=== PATIENT | female | born 1935 | race Caucasian/White ===

== ENCOUNTER → 2016-05-01 | Outpatient (CLI) | payer MEDICARE, OTHER ==
--- NOTE | 2016-05-01 16:05 | US ---
EXAMINATION TYPE: US thyroid st tissue head/neck DATE OF EXAM: 05/01/2016 3:12 PM COMPARISON: 03/2015 CLINICAL HISTORY: 80-year-old female E04.1 Nodule. Follow up TECHNIQUE: Multiple sonographic images of the thyroid gland are obtained. FINDINGS: GLAND SIZE: Right Lobe: 4.9 x 2.8 x 3.5 cm Overall Parenchyma: heterogenous Left Lobe: 3.2 x 1.1 x 1.9 cm Overall Parenchyma: heterogeneous Isthmus Thickness: 0.3 cm NODULES RIGHT: # of nodules measured on right: 1 1. 3.3 X 2.3 x 2.6 cm primarily cystic nodule with some thickened septations and mural based nodula rity at the mid pole with well-defined margins; . This nodule is wider than tall and shows no intran odular vascularity. Prior size: 3.6 x 2.6 x 2.9 cm LEFT: # of nodules measured on left: 2 1. 0.5 X 0.4 x 0.3 cm cystic nodule at the upper pole with well-defined margins; . This nodule is wider than tall and shows no intranodular vascularity. Prior size: 0.6 x 0.3 x 0.6 cm 2. 0.5 X 0.3 x 0.7 cm mixed nodule at the posterior mid pole with well-defined margins; . This nodu le is wider than tall and shows no intranodular vascularity. Prior size: 0.4 x 0.2 x 0.4 cm ISTHMUS: # of nodules measured in the isthmus: 1 1. 0.9 X 1.0 x 0.6 cm isoechoic solid nodule at the mid pole with well-defined margins; . This nodu le is wider than tall and shows no intranodular vascularity. Prior size: 1.1 x 1.1 x 0.6 cm Bilateral neck scanned, no abnormal lymphadenopathy noted. IMPRESSION: 1. Multinodular thyroid gland, largest nodule is in the right lobe and is a complex cystic nodule tahir suring 3.3 cm versus 3.6 cm, previously. 2. The other dominant nodule measures 1 cm and is solid within the thyroid isthmus, also stable to mi nimally smaller. 3. Continued follow-up as indicated.
== END | disposition home or self-care (01) ==
LOC: RADUSWWP 14:39
PROVIDERS: ATTEND Otolaryngology
DX: E04.1 Nontoxic single thyroid nodule (principal)
CPT/HCPCS: 76536

== ENCOUNTER → 2016-07-09 | Outpatient (CLI) | payer MEDICARE, OTHER ==
[2016-07-09 15:26] LABS: Blood Urea Nitrogen 27 mg/dL (7-17); Non-African American GFR(MDRD) >60 (>60 ml/min/1.73 sqM)
== END | disposition home or self-care (01) ==
LOC: LABWHC1 14:53
PROVIDERS: ATTEND Physical Medicine & Rehabilitation
DX: M48.06 Spinal stenosis, lumbar region (principal); M41.26 Other idiopathic scoliosis, lumbar region; M51.17 Intervertebral disc disorders with radiculopathy, lumbosacral region; M47.817 Spondylosis without myelopathy or radiculopathy, lumbosacral region; M54.5 Low back pain
CPT/HCPCS: 36415; 82565; 84520

== ENCOUNTER → 2016-08-04 | Outpatient (CLI) | payer MEDICARE, OTHER ==
--- NOTE | 2016-08-05 10:20 | ECHOF ---
Referral Reason:R60.9 Edema MEASUREMENTS -------- HEIGHT: 157.5 cm WEIGHT: 103.4 kg BP: IVSd: 1.3 cm (0.6 - 1.1) LVIDd: 3.7 cm (3.9 - 5.3) LVPWd: 1.4 cm (0.6 - 1.1) IVSs: 1.5 cm LVIDs: 2.2 cm LVPWs: 1.9 cm Ao Diam: 2.7 cm (2.0 - 3.7) AV Cusp: 1.6 cm (1.5 - 2.6) LA Diam: 3.4 cm (2.7 - 3.8) MV EXCURSION: 15.618 mm (> 18.000) MV EF SLOPE: 100 mm/s (70 - 150) EPSS: 0.4 cm MV E Christiano: 0.70 m/s MV DecT: 261 ms MV A Christiano: 0.95 m/s MV E/A Ratio: 0.74 AR PHT: 820 ms RAP: 5.00 mmHg RVSP: 12.37 mmHg FINDINGS -------- Sinus rhythm. This was a technically good study. There is mild concentric left ventricular hypertrophy. Overall left ventricular systolic function is normal with, an EF between 55 - 60 %. The right ventricle is normal in size and function. The left atrium is normal in size. The right atrium is normal in size. Aortic valve is trileaflet and is mildly thickened. Trace amount of aortic regurgitation. The mitral valve leaflets are mildly thickened. Mild mitral annular calcification present. There is trace mitral regurgitation. Trace tricuspid regurgitation present. The right ventricular systolic pressure, as measured by Doppler, is 12.37mmHg. Pulmonic valve appears structurally normal. The aortic root size is normal. The pericardium is normal. CONCLUSIONS -------- 1. Sinus rhythm. 2. The mitral valve leaflets are mildly thickened. 3. Mild mitral annular calcification present. 4. There is trace mitral regurgitation. 5. Trace tricuspid regurgitation present. 6. The right ventricular systolic pressure, as measured by Doppler, is 12.37mmHg. 7. Pulmonic valve appears structurally normal. 8. The aortic root size is normal. 9. The pericardium is normal. 10. This was a technically good study. 11. There is mild concentric left ventricular hypertrophy. 12. Overall left ventricular systolic function is normal with, an EF between 55 - 60 %. 13. The right ventricle is normal in size and function. 14. The left atrium is normal in size. 15. The right atrium is normal in size. 16. Aortic valve is trileaflet and is mildly thickened. 17. Trace amount of aortic regurgitation. CLASSIFIER TENDER: Elida Jack RDCS
== END | disposition home or self-care (01) ==
LOC: RADECHMAIN 12:46
PROVIDERS: ATTEND Internal Medicine
DX: I08.3 Combined rheumatic disorders of mitral, aortic and tricuspid valves (principal)
CPT/HCPCS: 93306

== ENCOUNTER 2016-12-25 09:00 | Emergency (ER) | payer MEDICARE, OTHER ==
[2016-12-25 09:11] VITALS: RESP 18
--- NOTE | 2016-12-25 09:24 | ED ---
General Adult HPI - General Chief complaint: Arrhythmia/Palpitations Stated complaint: Tachycardia Time Seen by Provider: 12/25/16 09:07 Source: patient, family, RN notes reviewed Mode of arrival: wheelchair Limitations: no limitations - History of Present Illness Initial comments: Patient is a pleasant 81-year-old female presenting to the emergency department with concerns for tachycardia. Patient was presenting to have spinal steroid injection at a local clinic. Patient had heart rate at 120 prior to procedure. Upon presentation patient had a heart rate of 80. Patient denies any palpitations. Patient denies any chest discomfort. Patient denies dyspnea. Patient does admit to having a mild cough for a week or so with some mild chest congestion. Patient also states there has been some mild discomfort of her right inner thigh that extends to around the knee maybe a little bit past. No swelling. No redness. - Related Data Home Medications Medication Instructions Recorded Confirmed rOPINIRole HCL [rOPINIRole HCL] 0.5 mg PO TID 12/25/16 12/25/16 Previous Rx's Medication Instructions Recorded amLODIPine BESYLATE [Norvasc] 5 mg PO DAILY #20 tab 06/15/14 Allergies Allergy/AdvReac Type Severity Reaction Status Date / Time No Known Allergies Allergy Verified 12/25/16 10:47 Review of Systems ROS Statement: Those systems with pertinent positive or pertinent negative responses have been documented in the HPI. ROS Other: All systems not noted in ROS Statement are negative. Constitutional: Denies: fever Eyes: Denies: eye pain ENT: Denies: ear pain Respiratory: Reports: cough. Denies: dyspnea Cardiovascular: Denies: chest pain Endocrine: Denies: fatigue Gastrointestinal: Denies: abdominal pain Genitourinary: Denies: dysuria Musculoskeletal: Denies: back pain Skin: Denies: rash Neurological: Denies: headache Past Medical History Past Medical History: Hypertension Additional Past Medical History / Comment(s): restless leg History of Any Multi-Drug Resistant Organisms: None Reported Past Surgical History: Cholecystectomy, Hernia Repair Past Anesthesia/Blood Transfusion Reactions: No Reported Reaction Past Psychological History: No Psychological Hx Reported Smoking Status: Never smoker Past Alcohol Use History: Occasional Past Drug Use History: None Reported - Past Family History Mother Family Medical History: Congestive Heart Failure (CHF), Diabetes Mellitus, Hypertension Father Family Medical History: Congestive Heart Failure (CHF) General Exam Limitations: no limitations General appearance: alert, in no apparent distress Head exam: Present: atraumatic Eye exam: Present: normal appearance, PERRL ENT exam: Present: normal oropharynx Neck exam: Present: normal inspection Respiratory exam: Present: normal lung sounds bilaterally. Absent: chest wall tenderness Cardiovascular Exam: Present: regular rate, normal rhythm, normal heart sounds Expanded Peripheral pulses: 2+: Dorsalis Pedis (R), Dorsalis Pedis (L) GI/Abdominal exam: Present: soft. Absent: tenderness Extremities exam: Present: other (Mild tenderness right inner thigh. No swelling. No warmth. No erythema.). Absent: pedal edema, calf tenderness Neurological exam: Present: alert Psychiatric exam: Present: normal affect, normal mood Skin exam: Present: normal color Course Vital Signs 12/25/16 09:07 Temperature 96.9 F L Pulse Rate 83 Respiratory 18 Rate Blood Pressure 163/78 O2 Sat by Pulse 98 Oximetry EKG Findings - EKG Comments: EKG Findings:: Sinus rhythm 85. First 3 AV block MO 224. QRS 80. QT 38. QTC 452. Normal axis. Voltage criteria for LVH. No acute ST change. Medical Decision Making - Medical Decision Making Patient examined and resting comfortably in bed. Patient running symptom-free. Heart rate 65. Patient and family were updated on results and need for follow -up. - Lab Data Result diagrams: 12/25/16 09:26 12/25/16 09:26 Lab Results 12/25/16 12/25/16 12/25/16 Range/Units 09:26 09:26 09:26 WBC 6.1 (3.8-10.6) k/uL RBC 5.31 (3.80-5.40) m/uL Hgb 15.6 (11.4-16.0) gm/dL Hct 48.3 H (34.0-46.0) % MCV 90.9 (80.0-100.0) fL MCH 29.4 (25.0-35.0) pg MCHC 32.3 (31.0-37.0) g/dL RDW 13.7 (11.5-15.5) % Plt Count 262 (150-450) k/uL Neutrophils % 51 % Lymphocytes % 32 % Monocytes % 7 % Eosinophils % 5 % Basophils % 1 % Neutrophils # 3.1 (1.3-7.7) k/uL Lymphocytes # 2.0 (1.0-4.8) k/uL Monocytes # 0.4 (0-1.0) k/uL Eosinophils # 0.3 (0-0.7) k/uL Basophils # 0.1 (0-0.2) k/uL PT (9.0-12.0) sec INR (<1.2) APTT (22.0-30.0) sec D-Dimer (<0.60) mg/L FEU Sodium 141 (137-145) mmol/L Potassium 4.0 (3.5-5.1) mmol/L Chloride 108 H (98-107) mmol/L Carbon Dioxide 23 (22-30) mmol/L Anion Gap 10 mmol/L BUN 19 H (7-17) mg/dL Creatinine 0.60 (0.52-1.04) mg/dL Est GFR (MDRD) Af Amer >60 (>60 ml/min/1.73 sqM) Est GFR (MDRD) Non-Af >60 (>60 ml/min/1.73 sqM) Glucose 98 (74-99) mg/dL Calcium 8.9 (8.4-10.2) mg/dL Magnesium 2.1 (1.6-2.3) mg/dL Total Bilirubin 0.7 (0.2-1.3) mg/dL AST 28 (14-36) U/L ALT 36 (9-52) U/L Alkaline Phosphatase 69 (38-126) U/L Total Creatine Kinase 81 (30-135) U/L CK-MB (CK-2) 1.6 (0.0-2.4) ng/mL CK-MB (CK-2) Rel Index 2.0 Troponin I <0.012 (0.000-0.034) ng/mL Total Protein 6.9 (6.3-8.2) g/dL Albumin 4.0 (3.5-5.0) g/dL TSH 4.020 (0.465-4.680) mIU/L Free T4 1.12 (0.78-2.19) ng/dL Free T3 pg/mL 3.8 (2.8-5.3) pg/ml 12/25/16 Range/Units 09:46 WBC (3.8-10.6) k/uL RBC (3.80-5.40) m/uL Hgb (11.4-16.0) gm/dL Hct (34.0-46.0) % MCV (80.0-100.0) fL MCH (25.0-35.0) pg MCHC (31.0-37.0) g/dL RDW (11.5-15.5) % Plt Count (150-450) k/uL Neutrophils % % Lymphocytes % % Monocytes % % Eosinophils % % Basophils % % Neutrophils # (1.3-7.7) k/uL Lymphocytes # (1.0-4.8) k/uL Monocytes # (0-1.0) k/uL Eosinophils # (0-0.7) k/uL Basophils # (0-0.2) k/uL PT 10.5 (9.0-12.0) sec INR 1.0 (<1.2) APTT 23.8 (22.0-30.0) sec D-Dimer 0.57 (<0.60) mg/L FEU Sodium (137-145) mmol/L Potassium (3.5-5.1) mmol/L Chloride (98-107) mmol/L Carbon Dioxide (22-30) mmol/L Anion Gap mmol/L BUN (7-17) mg/dL Creatinine (0.52-1.04) mg/dL Est GFR (MDRD) Af Amer (>60 ml/min/1.73 sqM) Est GFR (MDRD) Non-Af (>60 ml/min/1.73 sqM) Glucose (74-99) mg/dL Calcium (8.4-10.2) mg/dL Magnesium (1.6-2.3) mg/dL Total Bilirubin (0.2-1.3) mg/dL AST (14-36) U/L ALT (9-52) U/L Alkaline Phosphatase (38-126) U/L Total Creatine Kinase (30-135) U/L CK-MB (CK-2) (0.0-2.4) ng/mL CK-MB (CK-2) Rel Index Troponin I (0.000-0.034) ng/mL Total Protein (6.3-8.2) g/dL Albumin (3.5-5.0) g/dL TSH (0.465-4.680) mIU/L Free T4 (0.78-2.19) ng/dL Free T3 pg/mL (2.8-5.3) pg/ml - Radiology Data Radiology results: report reviewed (Ultrasound right leg shows no evidence of DVT. There is slight limitation.), image reviewed (Chest x-ray shows no acute process) Disposition Clinical Impression: Tachycardia Disposition: HOME SELF-CARE Condition: Stable Instructions: Tachycardia (ED) Additional Instructions: Please follow-up with your primary care physician in the next day or 2 for recheck. Return for increased heart rate, chest pain, difficulty breathing, worsening or changing symptoms or other concerns. Please do check her heart rate several times daily and provided list for follow-up with your regular doctor. Referrals: Kun Alfred MD [Primary Care Provider] - 1-2 days Time of Disposition: 11:37
[2016-12-25 09:41] LABS: Basophils # (A) 0.1 k/uL (0-0.2); Basophils % (A) 1 %; CH 29.4; CHCM 32.5; Eosinophils # (A) 0.3 k/uL (0-0.7); Eosinophils % (A) 5 %; HCT 48.3 % (34.0-46.0); HDW 2.38; HGB 15.6 gm/dL (11.4-16.0); Luc # (Auto) 0.25; Luc % (Auto) 4; Lymphocytes % (A) 32 %; MCH 29.4 pg (25.0-35.0); MCHC 32.3 g/dL (31.0-37.0); MCV 90.9 fL (80.0-100.0); Mean Platelet Volume 7.3; Monocytes # (A) 0.4 k/uL (0-1.0); Monocytes % (A) 7 %; Neutrophils # (A) 3.1 k/uL (1.3-7.7); Neutrophils % (A) 51 %; RBC 5.31 m/uL (3.80-5.40); RDW 13.7 % (11.5-15.5); WBC 6.1 k/uL (3.8-10.6); WBC (Perox) 5.94
[2016-12-25 09:47] LABS: ALT 36 U/L (9-52); AST 28 U/L (14-36); Alkaline Phosphatase 69 U/L (38-126); Anion Gap 10 mmol/L; Blood Urea Nitrogen 19 mg/dL (7-17); Calcium 8.9 mg/dL (8.4-10.2); Carbon Dioxide 23 mmol/L (22-30); Chloride 108 mmol/L (98-107); Glucose 98 mg/dL (74-99); Magnesium 2.1 mg/dL (1.6-2.3); Non-African American GFR(MDRD) >60 (>60 ml/min/1.73 sqM); Sodium 141 mmol/L (137-145); Total Bilirubin 0.7 mg/dL (0.2-1.3); Total Protein 6.9 g/dL (6.3-8.2)
[2016-12-25 10:03] LABS: Creatine Kinase 81 U/L (30-135)
[2016-12-25 10:10] LABS: Partial Thromboplastin Time 23.8 sec (22.0-30.0); Prothrombin Time 10.5 sec (9.0-12.0)
[2016-12-25 10:15] LABS: Creatine Kinase MB 1.6 ng/mL (0.0-2.4); Troponin I <0.012 ng/mL (0.000-0.034)
--- NOTE | 2016-12-25 10:45 | US ---
EXAMINATION TYPE: US venous doppler duplex LE RT DATE OF EXAM: 12/25/2016 9:20 AM COMPARISON: US CLINICAL HISTORY: Pain. SIDE PERFORMED: TECHNIQUE: The lower extremity deep venous system is examined utilizing real time linear array sonog dre with graded compression, doppler sonography and color-flow sonography. VESSELS IMAGED: External Iliac Vein (EIV) Common Femoral Vein Deep Femoral Vein Greater Saphenous Vein * Femoral Vein, unable to perform compression mid and distal due to patient pain level Popliteal Vein Small Saphenous Vein * Proximal Calf Veins, not seen due to body habitus, (* superficial vessels) Morbidly obese patient. Right Leg: Negative for DVT IMPRESSION: 1. Limited exam demonstrates no diagnostic evidence of DVT as visualized.
--- NOTE | 2016-12-25 11:22 | XR ---
EXAMINATION TYPE: XR chest 2V DATE OF EXAM: 12/25/2016 COMPARISON: 01/31/2015 TECHNIQUE: PA and lateral views submitted. HISTORY: Dysrhythmia FINDINGS: The lungs are clear and there is no pneumothorax, pleural effusion, or focal pneumonia. Atheroscler otic change aorta. Hyperinflation suggests COPD. Arthropathy of the shoulders noted. IMPRESSION: 1. No acute process.
[2016-12-25 11:48] VITALS: BP 135/64; PULSE 65; TEMP 96.8
== END 2016-12-25 11:48 | disposition home or self-care (01) ==
LOC: EC 09:00
DX: R00.0 Tachycardia, unspecified (principal); R05 Cough; R09.89 Other specified symptoms and signs involving the circulatory and respiratory systems; G25.81 Restless legs syndrome; Z79.899 Other long term (current) drug therapy; Z82.49 Family history of ischemic heart disease and other diseases of the circulatory system; M79.651 Pain in right thigh
CPT/HCPCS: 36415; 71020; 80053; 82550; 82553; 83735; 84439; 84443; 84481; 84484; 85025; 85379; 85610; 85730; 93005; 99285

== ENCOUNTER → 2017-01-08 | Outpatient (CLI) | payer MEDICARE, OTHER ==
--- NOTE | 2017-01-08 15:06 | US ---
EXAMINATION TYPE: US thyroid st tissue head/neck DATE OF EXAM: 01/08/2017 COMPARISON: May 01, 2016 CLINICAL HISTORY: E04.9 Thyroid goiter. follow up exam GLAND SIZE: Right Lobe: 4.3 x 3.0 x 3.2 cm Overall Parenchyma: heterogenous Left Lobe: 3.3 x 1.0 x 1.6 cm Overall Parenchyma: heterogeneous Isthmus Thickness: 0.5 cm NODULES RIGHT: # of nodules measured on right: 1 1. 2.3 X 3.0 x 3.3 cm cystic nodule at the mid pole with well-defined margins. This nodule is dominique ler than wide and shows no intranodular vascularity. Prior size: 3.3 x 2.3 x 2.6 cm LEFT: # of nodules measured on left: 0 ISTHMUS: # of nodules measured in the isthmus: 0 Bilateral neck scanned, no evidence of lymphadenopathy. IMPRESSION: Stable cystic nodule right thyroid lobe.
== END | disposition home or self-care (01) ==
LOC: RADUSWWP 14:04
PROVIDERS: ATTEND Internal Medicine
DX: E04.1 Nontoxic single thyroid nodule (principal)
CPT/HCPCS: 76536

== ENCOUNTER → 2017-11-03 | Outpatient (CLI) | payer MEDICARE, OTHER ==
[~2017-11-03] MED LIST: DENOSUMAB 60 MG/ML 1 ML SYRINGE SQ ONE
[2017-11-03 14:33] VITALS: BP 143/74; PULSE 69; RESP 16; TEMP 98.6
== END | disposition home or self-care (01) ==
LOC: PROCWHC3 13:57
PROVIDERS: ATTEND Internal Medicine
DX: M81.0 Age-related osteoporosis without current pathological fracture (principal)
CPT/HCPCS: 96372; J0897

== ENCOUNTER 2017-12-10 15:08 | Inpatient (IN) | payer MEDICARE, OTHER ==
[2017-12-10] MEDS ORDERED: ALBUTEROL NEBULIZED 2.5 MG/3 ML INHALATION STA (15:35)
[2017-12-10] MEDS ORDERED: IPRATROPIUM 0.5 MG/2.5 ML NEBU INHALATION STA (15:35)
--- NOTE | 2017-12-10 15:35 | ED ---
General Adult HPI - General Chief complaint: Shortness of Breath Stated complaint: pneumonia/SOB Source: patient Mode of arrival: wheelchair Limitations: no limitations - History of Present Illness Initial comments: Dictation was produced using [employer] dictation software. please excuse any grammatical, word or spelling errors. Chief Complaint: 82-year-old female past medical history of hypertension and restless leg disease presents with shortness of breath. History of Present Illness: Patient was seen in her primary care doctor's office yesterday. X-rays was performed and patient was diagnosed with pneumonia. She was discharged with antibiotics per she is given precautions that if she has any worsening symptoms or persistent symptoms to come to the emergency department. Patient states she's been having shortness of breath especially with exertion. Patient denies any smoking history. Denies any COPD. Patient denies any chest pain. She was told that there was a pneumonia or a infiltrate in the left lower lobe. Patient's cough and however denies any constitutional symptoms. Patient denies any overt sick contacts The ROS documented in this emergency department record has been reviewed and confirmed by me. Those systems with pertinent positive or negative responses have been documented in the HPI. All other systems are other negative and/or noncontributory. - Related Data Home Medications Medication Instructions Recorded Confirmed rOPINIRole HCL 0.5 mg PO TID 12/25/16 12/10/17 Cholecalciferol [Vitamin D3] 1,000 unit PO DAILY 12/10/17 12/10/17 Multivitamins, Thera [Multivitamin 1 tab PO DAILY 12/10/17 12/10/17 (formulary)] Vitamin B Complex 1 cap PO DAILY 12/10/17 12/10/17 Previous Rx's Medication Instructions Recorded amLODIPine BESYLATE [Norvasc] 5 mg PO DAILY #20 tab 06/15/14 Allergies Allergy/AdvReac Type Severity Reaction Status Date / Time lorazepam [From Ativan] AdvReac Unknown Verified 12/10/17 16:04 Review of Systems ROS Statement: Those systems with pertinent positive or pertinent negative responses have been documented in the HPI. ROS Other: All systems not noted in ROS Statement are negative. Past Medical History Past Medical History: Hypertension Additional Past Medical History / Comment(s): restless leg History of Any Multi-Drug Resistant Organisms: None Reported Past Surgical History: Cholecystectomy, Hernia Repair Past Anesthesia/Blood Transfusion Reactions: No Reported Reaction Past Psychological History: No Psychological Hx Reported Smoking Status: Never smoker Past Alcohol Use History: None Reported Past Drug Use History: None Reported - Past Family History Mother Family Medical History: Congestive Heart Failure (CHF), Diabetes Mellitus, Hypertension Father Family Medical History: Congestive Heart Failure (CHF) General Exam - General Exam Comments Initial Comments: PHYSICAL EXAM: General Impression: Alert and oriented x3, not in acute distress HEENT: Normocephalic atraumatic, extra-ocular movements intact, pupils equal and reactive to light bilaterally, mucous membranes moist, exhibits on the posterior pharynx and tonsils Cardiovascular: Heart regular rate and rhythm, S1&S2 audible, no murmurs, rubs or gallops Chest: Lungs clear to auscultation bilaterally, no rhonchi, no wheeze, no rales Abdomen: Bowel sounds present, abdomen soft, non-tender, non-distended, no organomegaly Musculoskeletal: Pulses present and equal in all extremities, no peripheral edema Motor: Power 5/5 bilaterally, no focal deficits noted Neurological: CN II-XII grossly intact, no focal motor or sensory deficits noted Skin: Intact with no visualized rashes Psych: Normal affect and mood Limitations: no limitations Course Vital Signs 12/10/17 12/10/17 12/10/17 15:11 15:14 16:00 Temperature 98.3 F Pulse Rate 89 87 Respiratory 20 25 H 18 Rate Blood Pressure 128/77 O2 Sat by Pulse 92 L Oximetry 12/10/17 16:20 Temperature Pulse Rate 97 Respiratory 18 Rate Blood Pressure O2 Sat by Pulse 88 L Oximetry Medical Decision Making - Medical Decision Making ED course: 82 year old female presents with difficulty in breathing after being diagnosed with pneumonia yesterday. Vital signs upon arrival shows 92% on room air. Rest vital signs within normal limits. Patient is afebrile. Laboratory evaluation obtained. CBC unremarkable. Negative differential. Coag panel unremarkable. Metabolic panel is negative. Cardiac enzymes negative , abdominal labs are negative. Chest x-ray does not show any signs of pneumonia or suspicious infiltrate. Patient was given a breathing treatment. She was observed in emergency department. Patient still persistently hypoxic with the level of 88. At this point there is some suspicion that this could be early pneumonia that is not seen on x-ray. More than likely patient hypoxic from viral etiology. Patient be admitted observation for further medical monitoring. We'll continue antibiotics and give her [id number] breathing treatment. EKG Interpretation: A 12 lead EKG was obtained. It was interpreted by myself and attending physician. There is a P wave before every QRS complex. Rate is 88. Rhythm is normal sinus rhythm, NH interval 180, QRS duration 90, QTc 447. QT is not prolonged. No ST segment depression or elevation. . Overall, this EKG is unremarkable - Lab Data Result diagrams: 12/10/17 15:39 12/10/17 15:39 Lab Results 12/10/17 12/10/17 12/10/17 Range/Units 15:39 15:39 15:39 WBC 9.3 (3.8-10.6) k/uL RBC 4.99 (3.80-5.40) m/uL Hgb 14.4 (11.4-16.0) gm/dL Hct 44.4 (34.0-46.0) % MCV 88.9 (80.0-100.0) fL MCH 28.8 (25.0-35.0) pg MCHC 32.4 (31.0-37.0) g/dL RDW 13.7 (11.5-15.5) % Plt Count 259 (150-450) k/uL Neutrophils % 74 % Lymphocytes % 12 % Monocytes % 8 % Eosinophils % 4 % Basophils % 0 % Neutrophils # 6.9 (1.3-7.7) k/uL Lymphocytes # 1.1 (1.0-4.8) k/uL Monocytes # 0.8 (0-1.0) k/uL Eosinophils # 0.4 (0-0.7) k/uL Basophils # 0.0 (0-0.2) k/uL PT (9.0-12.0) sec INR (<1.2) APTT (22.0-30.0) sec Sodium 140 (137-145) mmol/L Potassium 4.3 (3.5-5.1) mmol/L Chloride 105 (98-107) mmol/L Carbon Dioxide 27 (22-30) mmol/L Anion Gap 8 mmol/L BUN 22 H (7-17) mg/dL Creatinine 0.83 (0.52-1.04) mg/dL Est GFR (CKD-EPI)AfAm 75 (>60 ml/min/1.73 sqM) Est GFR (CKD-EPI)NonAf 65 (>60 ml/min/1.73 sqM) Glucose 110 H (74-99) mg/dL Calcium 9.0 (8.4-10.2) mg/dL Total Bilirubin 0.4 (0.2-1.3) mg/dL AST 29 (14-36) U/L ALT 30 (9-52) U/L Alkaline Phosphatase 56 (38-126) U/L Total Creatine Kinase 106 (30-135) U/L CK-MB (CK-2) 1.7 (0.0-2.4) ng/mL CK-MB (CK-2) Rel Index 1.6 Troponin I <0.012 (0.000-0.034) ng/mL Total Protein 6.7 (6.3-8.2) g/dL Albumin 4.0 (3.5-5.0) g/dL 12/10/17 Range/Units 15:39 WBC (3.8-10.6) k/uL RBC (3.80-5.40) m/uL Hgb (11.4-16.0) gm/dL Hct (34.0-46.0) % MCV (80.0-100.0) fL MCH (25.0-35.0) pg MCHC (31.0-37.0) g/dL RDW (11.5-15.5) % Plt Count (150-450) k/uL Neutrophils % % Lymphocytes % % Monocytes % % Eosinophils % % Basophils % % Neutrophils # (1.3-7.7) k/uL Lymphocytes # (1.0-4.8) k/uL Monocytes # (0-1.0) k/uL Eosinophils # (0-0.7) k/uL Basophils # (0-0.2) k/uL PT 9.9 (9.0-12.0) sec INR 1.0 (<1.2) APTT 22.5 (22.0-30.0) sec Sodium (137-145) mmol/L Potassium (3.5-5.1) mmol/L Chloride (98-107) mmol/L Carbon Dioxide (22-30) mmol/L Anion Gap mmol/L BUN (7-17) mg/dL Creatinine (0.52-1.04) mg/dL Est GFR (CKD-EPI)AfAm (>60 ml/min/1.73 sqM) Est GFR (CKD-EPI)NonAf (>60 ml/min/1.73 sqM) Glucose (74-99) mg/dL Calcium (8.4-10.2) mg/dL Total Bilirubin (0.2-1.3) mg/dL AST (14-36) U/L ALT (9-52) U/L Alkaline Phosphatase (38-126) U/L Total Creatine Kinase (30-135) U/L CK-MB (CK-2) (0.0-2.4) ng/mL CK-MB (CK-2) Rel Index Troponin I (0.000-0.034) ng/mL Total Protein (6.3-8.2) g/dL Albumin (3.5-5.0) g/dL Disposition Clinical Impression: Hypoxia Disposition: ADMITTED IP TO THIS HOSP Condition: Good Referrals: Kun Alfred MD [Primary Care Provider] - 1-2 days Decision Time: 17:14
[2017-12-10 15:47] LABS: Basophils % (A) 0 %; Eosinophils # (A) 0.4 k/uL (0-0.7); Eosinophils % (A) 4 %; HCT 44.4 % (34.0-46.0); HGB 14.4 gm/dL (11.4-16.0); Lymphocytes # (A) 1.1 k/uL (1.0-4.8); Lymphocytes % (A) 12 %; MCH 28.8 pg (25.0-35.0); MCHC 32.4 g/dL (31.0-37.0); MCV 88.9 fL (80.0-100.0); Monocytes # (A) 0.8 k/uL (0-1.0); Monocytes % (A) 8 %; Neutrophils # (A) 6.9 k/uL (1.3-7.7); Neutrophils % (A) 74 %; Platelet Count 259 k/uL (150-450); RBC 4.99 m/uL (3.80-5.40); RDW 13.7 % (11.5-15.5); WBC 9.3 k/uL (3.8-10.6)
[2017-12-10 15:51] LABS: Potassium 4.3 mmol/L (3.5-5.1); Total Bilirubin 0.4 mg/dL (0.2-1.3); Total Protein 6.7 g/dL (6.3-8.2)
--- NOTE | 2017-12-10 15:53 | XR ---
EXAMINATION TYPE: XR chest 2V DATE OF EXAM: 12/10/2017 COMPARISON: 12/25/2016 HISTORY: 82-year-old female difficulty in breathing TECHNIQUE: AP and lateral views FINDINGS: Heart upper limits of normal in size. Some right paratracheal soft tissue suggestive of vascular ecta nico. Mild diffuse interstitial prominence is unchanged. Hazy densities in the peripheral left lung re lating to overlying soft tissue. Patient is obliqued. No definite consolidation or pleural effusion. IMPRESSION: Borderline cardiomegaly. There are chronic changes without definite acute process.
[2017-12-10 15:58] LABS: Partial Thromboplastin Time 22.5 sec (22.0-30.0); Prothrombin Time 9.9 sec (9.0-12.0)
[2017-12-10 16:28] LABS: Creatine Kinase MB 1.7 ng/mL (0.0-2.4); Troponin I <0.012 ng/mL (0.000-0.034)
[2017-12-10 16:52] LABS: Creatine Kinase 106 U/L (30-135)
[2017-12-10] MEDS ORDERED: DEXAMETHASONE SOD PHOSPHATE 10 MG/ML 1 ML VIAL IV STA (17:14)
[2017-12-10] MEDS ORDERED: NALOXONE 0.4 MG/ML 1 ML VIAL IV PRN (17:15)
[2017-12-10] MEDS ORDERED: IPRATROPIUM-ALBUTEROL 3 ML NEB INHALATION PRN (17:18)
[2017-12-10] MEDS: AZITHROMYCIN 500 MG TAB PO SCH (19:44)
[2017-12-10] MEDS: IPRATROPIUM-ALBUTEROL 3 ML NEB INHALATION SCH (19:58)
[2017-12-11] MEDS: IPRATROPIUM-ALBUTEROL 3 ML NEB INHALATION SCH ×3 (07:26→15:57)
[2017-12-11] MEDS: AZITHROMYCIN 500 MG TAB PO SCH (08:43)
[2017-12-11] MEDS ORDERED: predniSONE 20 MG TAB PO SCH (09:00)
[2017-12-11] MEDS ORDERED: amLODIPine 5 MG TAB PO SCH (10:00)
[2017-12-11] MEDS ORDERED: NON-FORMULARY DRUG (Vitamin B Complex [Vitamin B Complex] 1 CAP) PO SCH (10:00)
[2017-12-11] MEDS ORDERED: CHOLECALCIFEROL 1,000 UNIT TAB PO SCH (10:00)
[2017-12-11] MEDS ORDERED: MULTIVITAMINS, THERA 1 EACH TAB PO SCH (12:00)
[2017-12-11 15:02] VITALS: RESP 22
[2017-12-11 15:59] VITALS: BP 131/60; TEMP 97.6
[2017-12-11] MEDS: ENOXAPARIN 40 MG/0.4 ML SYRINGE SQ SCH ×2 (16:02→16:42)
[2017-12-11] MEDS: LORATADINE-PSEUDOEPH 5-120 MG 1 EACH TAB.ER.12H PO SCH ×2 (16:03→16:41)
[2017-12-11 16:13] VITALS: PULSE 84
--- NOTE | 2017-12-11 16:27 | HP ---
HISTORY AND PHYSICAL DATE OF ADMISSION: 12/10/17. DATE OF SERVICE: 12/11/17. PRESENTING COMPLAINT: Congested cough. HISTORY OF PRESENTING COMPLAINT: This is a very pleasant, 82-year-old patient Dr. Kun Alfred. Chronic stable medical conditions include hypertension, obesity, osteoarthritis especially of the knees and hips. The patient has been short of breath for quite a few days coming on. Two days ago she started having a cough. Had some light colored sputum. Denies any fever, chills. Appetite has been down and felt a bit weak, little bit muscle achiness and went and saw her family doctor. The patient was given antibiotics, but did not feel better and decided to come in. She is also congested in the nose with nasal congestion and feels congested in the throat area. Has got a cough. The patient normally uses a walker to get about. Denies any fever and chills. Admitted through the ER. REVIEW OF SYSTEMS: CONSTITUTIONAL: Tired. HEENT: As above. RESPIRATORY: As above. CARDIOVASCULAR: None. GASTROINTESTINAL: None. GENITOURINARY: None. MUSCULOSKELETAL: Some achiness in the muscles and knee joint pains. DERMATOLOGICAL: None. HEMATOLOGIC: None. LYMPHATICS: None. PSYCHIATRY: None. NEUROLOGICAL: None. PAST MEDICAL HISTORY: Hypertension, restless legs syndrome, osteoarthritis. PAST SURGICAL HISTORY: Cholecystectomy, hernia repair, cataract surgery, surgery on veins bilateral legs, epidural injection in the back. SOCIAL HISTORY: Lives by herself. Uses a walker, is a . No smoking. No alcohol. FAMILY HISTORY: Congestive heart failure, diabetes, hypertension. HOME MEDICATIONS: 1. Requip 0.5 mg p.o. t.i.d. 2. Norvasc 5 mg p.o. daily. 3. Vitamin B complex 1 capsule p.o. daily. 4. Multivitamin 1 tablet p.o. daily. 5. Vitamin D3 1000 units p.o. daily. ALLERGIES: To ATIVAN. PHYSICAL EXAMINATION: Vital signs on presentation: Temperature 98.3, pulse 59, respiration 20, blood pressure 120/77, pulse ox 92 percent on room air. GENERAL APPEARANCE: Well built, BMI 42.8, sitting up, awake. EYES: Pupils equal. Conjunctivae normal. HEENT: External appearance of nose and ears normal. Oral cavity normal. NECK: JVD not raised. Mass not palpable. RESPIRATORY: Effort normal. Lungs, slightly decreased breath sounds with occasional wheezing. CARDIOVASCULAR: First and second sounds normal. Minimal edema. ABDOMEN: Soft, nontender. Liver and spleen not palpable. LYMPHATIC: No lymph node palpable in neck and axillae. PSYCHIATRY: Alert and oriented x3. Mood and affect normal. NEUROLOGICAL: Pupils equal. Cranial nerves grossly intact. Power and sensation grossly intact. EXTREMITIES: Some venous prominence of lower extremities. MUSCULOSKELETAL: Evidence of osteoarthritis especially in the knees and hands. INVESTIGATIONS: White count 9.3, hemoglobin 14.4, potassium 4.3, BUN 22, creatinine 0.83. EKG sinus rhythm shows poor R-wave progression. Chest x-ray interpreted by me shows some hazy infiltrate. ASSESSMENT: 1. This is a patient who has had several days of chest congestion, nasal congestion, throat congestion. No fever. No chills. Has no white count. Sputum is very light green tinged if any. This appears to be a viral pneumonitis associated with achiness. Often times antibiotics would not really help in this and often times these can drag on for days. 2. Morbid obesity, BMI 42.8. 3. Primary osteoarthritis multiple joints bilateral. 4. Restless legs syndrome. 5. Essential hypertension. 6. Bronchospasm secondary to above. PLAN: Patient is getting breathing treatments, was started on antibiotics in the ER including Zithromax. Home medications are resumed. We will also give patient Claritin-D. Care was discussed at length with the patient. The patient is very keen to go home. I did talk with . Depending how she is doing, we could decide later that today. I did tell some of the symptoms linger for a while given that this is most likely a viral pneumonitis. MMODL / IJN: [id number] /
--- NOTE | 2017-12-13 12:02 | DS ---
DISCHARGE SUMMARY DATE OF ADMISSION: 12/10/17. DATE OF DISCHARGE: 12/11/17. FINAL DIAGNOSES: 1. Acute viral pneumonitis causing secondary bronchospasm. 2. Morbid obesity, BMI 42.8. 3. Primary osteoarthritis multiple joints bilateral. 4. Restless legs syndrome. 5. Essential hypertension. 6. Bronchospasm from viral pneumonitis. HOSPITAL COURSE: This very pleasant lady who has been going on short of breath for several days with cough, light green sputum. No fever. Had no white count. Just generally tired, was given antibiotics per PCP and did not work. Decided to come in. Again, patient is afebrile. No white count. Lungs showed minimal wheezing. The patient is also congested in the sinuses it appears. Patient got some breathing treatments with which she felt much better. The patient is awake, keen to go home and she felt she could really get better at home. She is going to look at the [place]. Would prefer to keep her longer, but she was rather keen about the same. I did speak at length with the patient about the same. EXAMINATION: Afebrile, pulse 84, respiration 20, blood pressure 130/60, pulse ox 92 percent on room air. On examination lungs are slightly decreased breath sounds. Occasional wheezing. LABS: Normal white count with no shift. DISPOSITION: Home. DISCHARGE MEDICATIONS: 1. Norvasc 5 mg p.o. daily. 2. Ropinirole 0.5 mg p.o. t.i.d. 3. Vitamin D3 2000 units p.o. daily. 4. Multivitamin 1 tablet p.o. daily. 5. Vitamin B complex 1 capsule p.o. daily. 6. Ventolin HFA 1-2 puffs q.6h p.r.n. 7. Zithromax 100 mg p.o. daily 5 tablets. 8. Claritin-D 1 tablet q.12h, 10 tablets. 9. Afrin 1 spray each nostril q.6h p.r.n. before now vapor inhalation. 10.Prednisone taper. Follow with Dr. Alfred in 3 days. Care was discussed in detail with the patient including return to the hospital if she was to get worse and did not feel better. MMODL / IJN: [id number] /
== END 2017-12-11 18:10 | disposition home or self-care (01) | DRG 194 ==
LOC: EC 15:08 → 5MS5E 17:17
PROVIDERS: ADMIT Hospitalist; ATTEND Hospitalist
DX: J12.9 Viral pneumonia, unspecified (principal); Z68.41 Body mass index [BMI] 40.0-44.9, adult; J98.01 Acute bronchospasm; E66.01 Morbid (severe) obesity due to excess calories; G25.81 Restless legs syndrome; I10 Essential (primary) hypertension; M19.91 Primary osteoarthritis, unspecified site; R09.02 Hypoxemia; Z79.899 Other long term (current) drug therapy; Z82.49 Family history of ischemic heart disease and other diseases of the circulatory system; Z83.3 Family history of diabetes mellitus; M16.0 Bilateral primary osteoarthritis of hip; M17.0 Bilateral primary osteoarthritis of knee; Z98.49 Cataract extraction status, unspecified eye
CPT/HCPCS: 36415; 71046; 80053; 82550; 82553; 84484; 85025; 85610; 85730; 93005; 94640; 94760; 96374; 99285

== ENCOUNTER → 2018-02-02 | Outpatient (CLI) | payer MEDICARE, OTHER ==
--- NOTE | 2018-02-03 11:33 | MM ---
Reason for exam: screening (asymptomatic). Last mammogram was performed 6 years and 4 months ago. History: Patient is postmenopausal. Family history of breast cancer in aunt at age 60. Took estrogen for 2 years beginning at age 53. Physical Findings: A clinical breast exam by your physician is recommended on an annual basis and results should be correlated with mammographic findings. MG 3D Screening Mammo W/Cad Bilateral CC and MLO view(s) were taken. Prior study comparison: September 22, 2011, bilateral digital screening mammo w/CAD. September 18, 2010, bilateral digital screening mammo w/CAD. There are scattered fibroglandular densities. There is no discrete abnormality. No significant changes when compared with prior studies. ASSESSMENT: Negative, BI-RAD 1 RECOMMENDATION: Routine screening mammogram of both breasts in 1 year.
== END | disposition home or self-care (01) ==
LOC: RADMAMWWP 16:23
PROVIDERS: ATTEND General Practice
DX: Z12.31 Encounter for screening mammogram for malignant neoplasm of breast (principal)
CPT/HCPCS: 77063; 77067

== ENCOUNTER 2018-04-16 13:58 | Inpatient (IN) | payer MEDICARE, OTHER ==
[2018-04-16] MEDS ORDERED: IPRATROPIUM-ALBUTEROL 3 ML NEB INHALATION STA ×2 (14:19→16:51)
--- NOTE | 2018-04-16 14:20 | ED ---
SOB HPI - General Chief Complaint: Shortness of Breath Stated Complaint: MARY ANNE, wheezing Time Seen by Provider: 04/16/18 14:19 Source: patient, RN notes reviewed, old records reviewed Mode of arrival: wheelchair Limitations: no limitations - History of Present Illness Initial Comments: This is a 82-year-old female the ER for evasive shortness of breath. Patient does have mild known history of COPD and wheezing. Patient was seen by her primary care and recently sent evaluation regarding her heart, echo and then was sent to see hydrometeorologist this afternoon. Patient states he does get persistent shortness of breath. Bilateral lower extremity edema. She has a chest pain recent travel history no sick contacts no significant medication changes is recent. No fevers occasional increased cough and congestion with no real exertional or exercise capability. MD Complaint: shortness of breath, cough -: days(s), unknown Radiation: other (Pain) Severity scale (1-10): 3 (Sling shortness of breath) Improves With: rest Worsens With: exertion, movement Known History Of: COPD Context: recent URI Associated Symptoms: cough - Related Data Home Medications Medication Instructions Recorded Confirmed rOPINIRole HCL 0.5 mg PO TID 12/25/16 04/16/18 Cholecalciferol [Vitamin D3] 1,000 unit PO DAILY 12/10/17 04/16/18 Multivitamins, Thera [Multivitamin 1 tab PO DAILY 12/10/17 04/16/18 (formulary)] Vitamin B Complex 1 cap PO DAILY 12/10/17 04/16/18 Albuterol Nebulized (Conc) 2.5 mg PO Q6HR 04/16/18 04/16/18 [Ventolin Nebulized (Conc)] Cholestyramine/Aspartame 4 gm PO DAILY 04/16/18 04/16/18 [Cholestyramine Light Packet] Fluticasone Propionate [Flovent 110 mcg INHALATION RT-BID 04/16/18 04/16/18 Hfa 110 mcg] Furosemide [Lasix] 40 mg PO DAILY 04/16/18 04/16/18 Levothyroxine Sodium [Synthroid] 25 mcg PO DAILY 04/16/18 04/16/18 Previous Rx's Medication Instructions Recorded Albuterol Inhaler [Ventolin Hfa 1 - 2 puff INHALATION RT-Q6H PRN 09/14/18 Inhaler] #1 inhaler Loratadine-Pseudoeph 5-120 mg 1 each PO Q12HR #10 tab.er.12h 12/11/17 [Claritin-D 12 Hour] Allergies Allergy/AdvReac Type Severity Reaction Status Date / Time lorazepam [From Ativan] AdvReac Unknown Verified 04/16/18 14:32 Review of Systems ROS Statement: Those systems with pertinent positive or pertinent negative responses have been documented in the HPI. ROS Other: All systems not noted in ROS Statement are negative. Past Medical History Past Medical History: Hypertension, Pneumonia Additional Past Medical History / Comment(s): restless leg, sciatica, "sun stroke age 2", "age 8 a hook from a swing went thru her hand-had 100 stitches" , had pne 2014, 2015 and stated just dx again with pne 12-09-17. lump rt side if neck has been bx several times-neg. pt unsure if she had the pne vaccine and brief writer unable to verify at time of this admit. History of Any Multi-Drug Resistant Organisms: None Reported Past Surgical History: Cholecystectomy, Hernia Repair Additional Past Surgical History / Comment(s): cataract sx, surgury on veins angelica legs, epidural injections in back Past Anesthesia/Blood Transfusion Reactions: No Reported Reaction, Motion Sickness Additional Past Anesthesia/Blood Transfusion Reaction / Comment(s): motion sickness on boats. clausterphobia Past Psychological History: No Psychological Hx Reported Smoking Status: Never smoker Past Alcohol Use History: None Reported Past Drug Use History: None Reported - Past Family History Mother Family Medical History: Congestive Heart Failure (CHF), Diabetes Mellitus, Hypertension Father Family Medical History: Congestive Heart Failure (CHF) General Exam Limitations: no limitations General appearance: alert, in no apparent distress, obese Head exam: Present: atraumatic, normocephalic, normal inspection Eye exam: Present: normal appearance, PERRL, EOMI. Absent: scleral icterus, conjunctival injection, periorbital swelling ENT exam: Present: normal exam, mucous membranes moist Neck exam: Present: normal inspection. Absent: tenderness, meningismus, lymphadenopathy Respiratory exam: Present: normal lung sounds bilaterally, wheezes. Absent: respiratory distress, rales, rhonchi, stridor Cardiovascular Exam: Present: regular rate, normal rhythm, normal heart sounds. Absent: systolic murmur, diastolic murmur, rubs, gallop, clicks GI/Abdominal exam: Present: soft, normal bowel sounds. Absent: distended, tenderness, guarding, rebound, rigid Extremities exam: Present: normal inspection, full ROM, normal capillary refill. Absent: tenderness, pedal edema, joint swelling, calf tenderness Back exam: Present: normal inspection Neurological exam: Present: alert, oriented X3, CN II-XII intact Psychiatric exam: Present: normal affect, normal mood Skin exam: Present: warm, dry, intact, normal color. Absent: rash Course Vital Signs 04/16/18 04/16/18 04/16/18 14:02 14:04 15:18 Temperature 97.6 F Pulse Rate 79 74 Respiratory 24 20 Rate Blood Pressure 190/82 O2 Sat by Pulse 97 Oximetry 04/16/18 15:27 Temperature Pulse Rate 74 Respiratory Rate Blood Pressure O2 Sat by Pulse Oximetry - Reevaluation(s) Reevaluation #1: 04/16/18 16:55 Medical record is reviewed, unable to find echo report from earlier in the day Reevaluation #2: 04/16/18 16:55 Patient does have some improvement with breathing treatment here Medical Decision Making - Medical Decision Making 82 female the ER for evaluation shortness of breath COPD bilateral lower extremity edema with likely right-sided heart failure. Chest x-ray is clear patient can be admitted for continued breathing treatments and both cardiology and pulmonology evaluation - Lab Data Result diagrams: 04/16/18 16:10 04/16/18 16:10 Lab Results 04/16/18 04/16/18 04/16/18 Range/Units 16:10 16:10 16:10 WBC 7.3 (3.8-10.6) k/uL RBC 5.05 (3.80-5.40) m/uL Hgb 14.8 (11.4-16.0) gm/dL Hct 47.3 H (34.0-46.0) % MCV 93.7 (80.0-100.0) fL MCH 29.4 (25.0-35.0) pg MCHC 31.3 (31.0-37.0) g/dL RDW 13.3 (11.5-15.5) % Plt Count 256 (150-450) k/uL Neutrophils % 52 % Lymphocytes % 33 % Monocytes % 5 % Eosinophils % 7 % Basophils % 0 % Neutrophils # 3.8 (1.3-7.7) k/uL Lymphocytes # 2.4 (1.0-4.8) k/uL Monocytes # 0.4 (0-1.0) k/uL Eosinophils # 0.5 (0-0.7) k/uL Basophils # 0.0 (0-0.2) k/uL PT 10.1 (9.0-12.0) sec INR 0.9 (<1.2) APTT 24.1 (22.0-30.0) sec Sodium 141 (137-145) mmol/L Potassium 4.0 (3.5-5.1) mmol/L Chloride 107 (98-107) mmol/L Carbon Dioxide 27 (22-30) mmol/L Anion Gap 7 mmol/L BUN 21 H (7-17) mg/dL Creatinine 0.64 (0.52-1.04) mg/dL Est GFR (CKD-EPI)AfAm >90 (>60 ml/min/1.73 sqM) Est GFR (CKD-EPI)NonAf 82 (>60 ml/min/1.73 sqM) Glucose 90 (74-99) mg/dL Calcium 9.4 (8.4-10.2) mg/dL Magnesium 2.2 (1.6-2.3) mg/dL Total Bilirubin 0.7 (0.2-1.3) mg/dL AST 32 (14-36) U/L ALT 40 (9-52) U/L Alkaline Phosphatase 60 (38-126) U/L Total Creatine Kinase (30-135) U/L Total Protein 6.7 (6.3-8.2) g/dL Albumin 4.1 (3.5-5.0) g/dL 04/16/18 Range/Units 16:10 WBC (3.8-10.6) k/uL RBC (3.80-5.40) m/uL Hgb (11.4-16.0) gm/dL Hct (34.0-46.0) % MCV (80.0-100.0) fL MCH (25.0-35.0) pg MCHC (31.0-37.0) g/dL RDW (11.5-15.5) % Plt Count (150-450) k/uL Neutrophils % % Lymphocytes % % Monocytes % % Eosinophils % % Basophils % % Neutrophils # (1.3-7.7) k/uL Lymphocytes # (1.0-4.8) k/uL Monocytes # (0-1.0) k/uL Eosinophils # (0-0.7) k/uL Basophils # (0-0.2) k/uL PT (9.0-12.0) sec INR (<1.2) APTT (22.0-30.0) sec Sodium (137-145) mmol/L Potassium (3.5-5.1) mmol/L Chloride (98-107) mmol/L Carbon Dioxide (22-30) mmol/L Anion Gap mmol/L BUN (7-17) mg/dL Creatinine (0.52-1.04) mg/dL Est GFR (CKD-EPI)AfAm (>60 ml/min/1.73 sqM) Est GFR (CKD-EPI)NonAf (>60 ml/min/1.73 sqM) Glucose (74-99) mg/dL Calcium (8.4-10.2) mg/dL Magnesium (1.6-2.3) mg/dL Total Bilirubin (0.2-1.3) mg/dL AST (14-36) U/L ALT (9-52) U/L Alkaline Phosphatase (38-126) U/L Total Creatine Kinase 47 (30-135) U/L Total Protein (6.3-8.2) g/dL Albumin (3.5-5.0) g/dL - EKG Data -: EKG Interpreted by Me (EKG shows sinus rhythm rate of 60, DE 220, QRS 100, QTC 440) - Radiology Data Radiology results: report reviewed (Chest x-rays negative for acute disease), image reviewed Disposition Clinical Impression: Congestive heart failure, Acute exacerbation of chronic obstructive airways disease, HTN (hypertension), Obesity, Bilateral lower extremity edema Disposition: ADMITTED IP TO THIS [facility] Condition: Good Is patient prescribed a controlled substance at d/c from ED?: No Referrals: Kun Alfred MD [Primary Care Provider] - 1-2 days
--- NOTE | 2018-04-16 15:52 | XR ---
EXAMINATION TYPE: XR chest 2V DATE OF EXAM: 04/16/2018 COMPARISON: 12/10/2017 TECHNIQUE: PA and lateral views submitted. HISTORY: Difficulty breathing FINDINGS: Exam technically limited. There is ectasia of the aorta with atherosclerotic change. Prominence the r ight paratracheal stripe may reflect prominent vasculature and apical lordotic positioning. Subsegmen dominique changes at both lung bases. Interstitium somewhat coarsened. Heart mildly prominent. Hypertrophic and degenerative change of the spine. IMPRESSION: 1. Subsegmental atelectasis favored over pneumonia. 2. Coarsened interstitium correlate for interstitial pneumonitis or less likely venous congestion.
[2018-04-16 16:28] LABS: Basophils % (A) 0 %; Eosinophils # (A) 0.5 k/uL (0-0.7); Eosinophils % (A) 7 %; HCT 47.3 % (34.0-46.0); HGB 14.8 gm/dL (11.4-16.0); Lymphocytes # (A) 2.4 k/uL (1.0-4.8); Lymphocytes % (A) 33 %; MCH 29.4 pg (25.0-35.0); MCHC 31.3 g/dL (31.0-37.0); MCV 93.7 fL (80.0-100.0); Mean Platelet Volume 7.5; Monocytes # (A) 0.4 k/uL (0-1.0); Monocytes % (A) 5 %; Neutrophils # (A) 3.8 k/uL (1.3-7.7); Neutrophils % (A) 52 %; Platelet Count 256 k/uL (150-450); RBC 5.05 m/uL (3.80-5.40); RDW 13.3 % (11.5-15.5); WBC 7.3 k/uL (3.8-10.6)
[2018-04-16 16:35] LABS: ALT 40 U/L (9-52); AST 32 U/L (14-36); Albumin 4.1 g/dL (3.5-5.0); Alkaline Phosphatase 60 U/L (38-126); Anion Gap 7 mmol/L; Blood Urea Nitrogen 21 mg/dL (7-17); Calcium 9.4 mg/dL (8.4-10.2); Carbon Dioxide 27 mmol/L (22-30); Chloride 107 mmol/L (98-107); Glucose 90 mg/dL (74-99); INR 0.9 (<1.2); Magnesium 2.2 mg/dL (1.6-2.3); Partial Thromboplastin Time 24.1 sec (22.0-30.0); Prothrombin Time 10.1 sec (9.0-12.0); Sodium 141 mmol/L (137-145); Total Bilirubin 0.7 mg/dL (0.2-1.3); Total Protein 6.7 g/dL (6.3-8.2)
[2018-04-16 16:49] LABS: Creatine Kinase 47 U/L (30-135)
[2018-04-16] MEDS ORDERED: methylPREDNISolone SOD SUCCI 125 MG/2 ML VIAL IV STA (16:51)
[2018-04-16 17:02] LABS: Creatine Kinase MB 0.7 ng/mL (0.0-2.4); Troponin I <0.012 ng/mL (0.000-0.034)
[2018-04-16] MEDS: IPRATROPIUM-ALBUTEROL 3 ML NEB INHALATION SCH (20:02)
[2018-04-16] MEDS: methylPREDNISolone SOD SUCCI 125 MG/2 ML VIAL IV SCH ×2 (20:40→23:23)
[2018-04-17] MEDS: methylPREDNISolone SOD SUCCI 125 MG/2 ML VIAL IV SCH ×2 (05:09→12:28)
[2018-04-17] MEDS: IPRATROPIUM-ALBUTEROL 3 ML NEB INHALATION SCH ×4 (08:37→20:15)
[2018-04-17 11:03] VITALS: BMI 46.8
[2018-04-17] MEDS ORDERED: FUROSEMIDE 10 MG/ML 4 ML VIAL IV SCH (11:30)
--- NOTE | 2018-04-17 11:48 | P.CRDCN ---
History of Present Illness Consult date: 04/17/18 Chief complaint: Shortness of breath History of present illness: This is a pleasant 82-year-old female patient with a past medical history significant for hypertension as well as obesity was referred to go to the emergency room for further evaluation off shortness of breath as well as wheezing. The patient has been treated by her primary care physician recently for what she called it recurrent pneumonia. She was sent to undergo an echocardiogram yesterday here at [facility] and during the echo with the patient was very short of breath as well as she was experiencing wheezing. She was referred to go to the pulmonary clinic where she was sent directly to the emergency room. The patient describes slowly progressive exertional dyspnea for the last several months. No orthopnea. No PND. For the last several weeks, she did load bilateral lower extremities edema most prominent around the ankles bilaterally. She stated that she gained significant amount of weight very slowly as well as. The patient's daughter stated that the patient used to walk for at least one block without any issues but lately she cannot make it even at home to do her daily activities without being short of breath. No symptoms of chest pain or chest discomfort. The patient stated that she never been diagnosed was congestive heart failure in the past and never seen any medical coder in the past. On physical examination she does have very prominent bilateral pitting edema. The chest seems to be clear. Beside that she was tachycardic with a systolic murmur at the right and left upper sternal border. The BNP came in to be below 100. The chest x-ray showed chronic changes bilaterally. The EKG showed sinus rhythm with nonspecific changes. The rest of her blood work came in to be unremarkable. The patient was prescribed Lasix by mouth as an outpatient started in January 2018 and she stated that she has been compliant with her Lasix and she take it on daily basis. Past Medical History Past Medical History: Heart Failure, COPD, Hypertension, Pneumonia Additional Past Medical History / Comment(s): restless leg, sciatica, "sun stroke age 2", "age 8 a hook from a swing went thru her hand-had 100 stitches" , had pne 2014, 2016 and stated just dx again with pne 12-09-17. lump rt side if neck has been bx several times-neg. pt unsure if she had the pne vaccine and newswriter unable to verify at time of this admit. History of Any Multi-Drug Resistant Organisms: None Reported Past Surgical History: Cholecystectomy, Hernia Repair Additional Past Surgical History / Comment(s): cataract sx, surgury on veins angelica legs, epidural injections in back Past Anesthesia/Blood Transfusion Reactions: No Reported Reaction, Motion Sickness Additional Past Anesthesia/Blood Transfusion Reaction / Comment(s): motion sickness on boats. clausterphobia Past Psychological History: No Psychological Hx Reported Additional Psychological History / Comment(s): Patient lives alone in 1 level home that has 4 porch steps(also has a ramp that used while alive). She is able to drive around and gets about the house on her own.has walker if needed. Smoking Status: Never smoker Past Alcohol Use History: None Reported Past Drug Use History: None Reported - Past Family History Mother Family Medical History: Congestive Heart Failure (CHF), Diabetes Mellitus, Hypertension Father Family Medical History: Congestive Heart Failure (CHF) Medications and Allergies Home Medications Medication Instructions Recorded Confirmed Type rOPINIRole HCL 0.5 mg PO TID 12/25/16 04/16/18 History Cholecalciferol [Vitamin D3] 1,000 unit PO DAILY 12/10/17 04/16/18 History Multivitamins, Thera [Multivitamin 1 tab PO DAILY 12/10/17 04/16/18 History (formulary)] Vitamin B Complex 1 cap PO DAILY 12/10/17 04/16/18 History Albuterol Inhaler [Ventolin Hfa 1 - 2 puff INHALATION RT-Q6H PRN 12/11/17 Rx Inhaler] #1 inhaler Loratadine-Pseudoeph 5-120 mg 1 each PO Q12HR #10 tab.er.12h 12/11/17 04/16/18 Rx [Claritin-D 12 Hour] Albuterol Nebulized (Conc) 2.5 mg PO Q6HR 04/16/18 04/16/18 History [Ventolin Nebulized (Conc)] Cholestyramine/Aspartame 4 gm PO DAILY 04/16/18 04/16/18 History [Cholestyramine Light Packet] Fluticasone Propionate [Flovent 110 mcg INHALATION RT-BID 04/16/18 04/16/18 History Hfa 110 mcg] Furosemide [Lasix] 40 mg PO DAILY 04/16/18 04/16/18 History Levothyroxine Sodium [Synthroid] 25 mcg PO DAILY 04/16/18 04/16/18 History Allergies Allergy/AdvReac Type Severity Reaction Status Date / Time lorazepam [From Ativan] AdvReac Unknown Verified 04/16/18 14:32 Physical Exam Vitals: Vital Signs Temp Pulse Pulse Resp BP BP Pulse Ox 04/17/18 08:47 68 04/17/18 08:37 66 04/17/18 07:41 98.1 F 80 18 138/79 93 L 04/16/18 23:00 98.1 F 72 16 133/72 95 04/16/18 20:12 74 04/16/18 20:02 74 18 96 04/16/18 17:30 98.3 F 76 18 143/69 95 04/16/18 15:27 74 04/16/18 15:18 74 04/16/18 14:04 20 04/16/18 14:02 97.6 F 79 24 190/82 97 Intake and Output 04/16/18 04/17/18 04/17/18 22:59 06:59 14:59 Other: Voiding Method Toilet Toilet # Voids 2 1 Weight 108.862 kg 108.862 kg - Constitutional General appearance: no acute distress - Respiratory Respiratory: bilateral: CTA - Cardiovascular Rhythm: regular Heart sounds: normal: S1, S2 Abnormal Heart Sounds: systolic murmur Results 04/16/18 16:10 04/16/18 16:10 Cardiac Enzymes 04/16/18 04/16/18 Range/Units 16:10 16:10 AST 32 (14-36) U/L CK-MB (CK-2) 0.7 (0.0-2.4) ng/mL Troponin I <0.012 (0.000-0.034) ng/mL Coagulation 04/16/18 Range/Units 16:10 PT 10.1 (9.0-12.0) sec APTT 24.1 (22.0-30.0) sec CBC 04/16/18 Range/Units 16:10 WBC 7.3 (3.8-10.6) k/uL RBC 5.05 (3.80-5.40) m/uL Hgb 14.8 (11.4-16.0) gm/dL Hct 47.3 H (34.0-46.0) % Plt Count 256 (150-450) k/uL Comprehensive Metabolic Panel 04/16/18 Range/Units 16:10 Sodium 141 (137-145) mmol/L Potassium 4.0 (3.5-5.1) mmol/L Chloride 107 (98-107) mmol/L Carbon Dioxide 27 (22-30) mmol/L BUN 21 H (7-17) mg/dL Creatinine 0.64 (0.52-1.04) mg/dL Glucose 90 (74-99) mg/dL Calcium 9.4 (8.4-10.2) mg/dL AST 32 (14-36) U/L ALT 40 (9-52) U/L Alkaline Phosphatase 60 (38-126) U/L Total Protein 6.7 (6.3-8.2) g/dL Albumin 4.1 (3.5-5.0) g/dL Current Medications Generic Name Dose Route Start Last Admin Trade Name Freq PRN Reason Stop Dose Admin Albuterol/Ipratropium 3 ml 04/16/18 20:00 04/17/18 11:36 Duoneb 0.5 Mg-3 Mg/3 Ml Soln INHALATION Not Given RT-QID YOEL Furosemide 40 mg 04/17/18 11:30 Lasix IV BID YOEL Methylprednisolone Sodium Succinate 60 mg 04/16/18 18:00 04/17/18 05:09 Solu-Medrol IV 60 mg Q6HR YOEL Administration Intake and Output 04/16/18 04/17/18 04/17/18 22:59 06:59 14:59 Other: Voiding Method Toilet Toilet # Voids 2 1 Weight 108.862 kg 108.862 kg Patient Weight 04/18/18 06:59 Weight 108.862 kg 04/16/18 16:10 04/16/18 16:10 Assessment and Plan Assessment: Assessment #1 progressive exertional dyspnea and bilateral lower extremities edema #2 congestive heart failure exacerbation probably related to diastolic dysfunction #3 heart murmur of unknown etiology at this point #4 obesity #5 hypertension Plan #1 I would follow-up on the echocardiogram which was performed yesterday #2 start the patient on IV Lasix at 40 mg daily #3 await for pulmonary consult and pulmonary evaluation #4 monitor the kidney function and electrolytes #6 follow-up with the patient
--- NOTE | 2018-04-17 15:01 | HP ---
HISTORY AND PHYSICAL DATE OF ADMISSION: 04/16/2018 DATE OF SERVICE: 04/17/2018 PRESENTING COMPLAINT: Short of breath, edema. HISTORY OF PRESENTING COMPLAINT: This is a pleasant 82-year-old patient of Dr. Kun Alfred. Chronic stable medical conditions include obesity, osteoarthritis of the spine, restless legs syndrome, hypertension. The patient for about 2 weeks noticed that she has been getting progressively more swelling in the lower extremity. Abdomen was becoming distended. She was getting short of breath with cough. Has had some chills. No fever, appetite. Tired and rundown. The patient was getting her testing done. She could not relate what it was, and the biological lab technician asked her to go and see the apparatus engineering technologist. From there she was sent straight to the ER. Patient feels a little bit better since she has come in. No diarrhea. No urine symptoms. REVIEW OF SYSTEMS: CONSTITUTIONAL: Tired. HEENT: None. RESPIRATORY: As above. CARDIOVASCULAR: As above. No chest pain. GASTROINTESTINAL: None. GENITOURINARY: None. MUSCULOSKELETAL: Restless leg syndrome. DERMATOLOGICAL: None. HEMATOLOGICAL: None. LYMPHATICS: None. PSYCHIATRY: None. NEUROLOGICAL: None. PAST MEDICAL HISTORY: 1. Obesity. 2. Osteoarthritis of the spine. 3. Restless legs syndrome. 4. Hypertension. 5. Sciatica. PAST SURGICAL HISTORY: 1. Cholecystectomy. 2. Hernia repair. 3. Cataract surgery. 4. Surgery on the veins, bilateral legs. 5. Epidural injections in the back. SOCIAL HISTORY: Lives alone. May use a walker occasionally. No smoking. No alcohol. FAMILY HISTORY: Congestive heart failure, diabetes, hypertension. HOME MEDICATIONS: 1. Ropinirole 0.5 mg t.i.d. 2. Vitamin B complex 1 capsule p.o. daily. 3. Multivitamin 1 tablet p.o. daily. 4. Claritin-D 1 tablet p.o. q.12. 5. Synthroid 25 mcg a day. 6. Lasix 40 mg a day. 7. Flovent HFA 110 mcg b.i.d. 8. Cholestyramine 4 grams p.o. daily. 9. Vitamin D3 1000 units p.o. daily. 10.Ventolin 2.5 p.o. q.6. 11.Albuterol HFA 1-2 puffs q.6 p.r.n. ALLERGIES: LORAZEPAM. PHYSICAL EXAMINATION: VITAL SIGNS ON PRESENTATION: Temperature 97.6, pulse 79, respiration 24, blood pressure 190/82, pulse ox 97% on room air. GENERAL APPEARANCE: Well built; BMI 46.9. Lying in bed, tired. EYES: Pupils equal. Conjunctivae normal. HEENT: External appearance of nose and ears normal. Oral cavity normal. NECK: JVD unable to assess. Mass not palpable. RESPIRATORY: Effort increased. LUNGS: Decreased breath sounds. CARDIOVASCULAR: First and second sounds normal. Some nonpitting edema. ABDOMEN: Distended, soft. Liver and spleen not palpable. LYMPHATIC: No lymph node palpable in neck or axillae. PSYCHIATRY: Alert and oriented x3. Mood and affect normal. NEUROLOGICAL: Pupils equal. Cranial nerves grossly intact. Power and sensation grossly intact. MUSCULOSKELETAL: Evidence of osteoarthritis, especially in the hands and knees. INVESTIGATIONS: White count 7.3, hemoglobin 14.8, potassium 4.0, BUN 21, creatinine 0.64. Troponin less than 0.012. ProBNP 78. EKG tracing personally reviewed by me shows normal sinus rhythm. Chest x-ray film personally reviewed by me shows some nonspecific vascular interstitium prominence, borderline cardiomegaly. ASSESSMENT: 1. This is a patient who presented with 2 weeks of worsening shortness of breath, abdominal distention, swelling of the lower extremity. Last 2D echocardiogram done over 2 years ago showed preserved LV function. This could be diastolic dysfunction, though note that patient's BNP is only 98. Will see how patient responds to Lasix. At the same time, we need to rule out chronic PE, and we will do a ventilation perfusion, which is better to [employer] more peripheral lesions. Also a 2-D echocardiogram will be done. 2. Rule out cor pulmonale. 3. Morbid obesity with body mass index 46.9. 4. Possible element of obesity hypoventilation syndrome. 5. Primary osteoarthritis of the spine. 6. Restless legs syndrome. 7. Essential hypertension. PLAN: Patient is currently on IV Lasix. Will order a perfusion V/Q scan to check for chronic PE more distally. Patient is also on bronchodilators. Two-D echocardiogram also has been ordered. Will also get a pulmonary opinion. Care was discussed with the patient. Questions were answered. Will also use Chip wrap. Follow electrolytes closely. Repeat a BNP in the morning. Care was discussed in detail with the patient. MMODL / IJN: [id number] /
--- NOTE | 2018-04-17 16:31 | NM ---
EXAMINATION TYPE: NM pulmonary ventilation/perfusion exam DATE OF EXAM: 04/17/2018 COMPARISON: Chest radiograph 04/16/2018 HISTORY: Bilateral leg swelling, dyspnea, cough, wheezing TECHNIQUE: Utilizing inhalation of 40.9 mCi Tc 99m DTPA aerosol and intravenous injection of 5.5 mCi of Tc 99m MAA, ventilation and perfusion images are acquired post injection in multiple projections. FINDINGS: Normal radiotracer distribution is noted in the lungs. There is no evidence of mismatched defects. IMPRESSION: Low probability for pulmonary embolism.
[2018-04-17] MEDS: ENOXAPARIN 40 MG/0.4 ML SYRINGE SQ SCH (16:40)
[2018-04-17] MEDS: CHOLESTYRAMINE (WITH SUGAR) 4 GM PACKET PO SCH (16:41)
[2018-04-17] MEDS: methylPREDNISolone SOD SUCCI 40 MG/ML 1 ML VIAL IV SCH ×2 (16:41→21:09)
[2018-04-17] MEDS: LEVOTHYROXINE 25 MCG TAB PO SCH (16:41)
[2018-04-17] MEDS: LORATADINE-PSEUDOEPH 5-120 MG 1 EACH TAB.ER.12H PO SCH (21:27)
[2018-04-18] MEDS: LEVOTHYROXINE 25 MCG TAB PO SCH (06:19)
[2018-04-18 08:12] LABS: Calcium 9.9 mg/dL (8.4-10.2); Potassium 4.9 mmol/L (3.5-5.1)
[2018-04-18] MEDS: IPRATROPIUM-ALBUTEROL 3 ML NEB INHALATION SCH ×4 (08:13→20:54)
[2018-04-18] MEDS: methylPREDNISolone SOD SUCCI 40 MG/ML 1 ML VIAL IV SCH ×3 (08:21→23:17)
[2018-04-18] MEDS: ENOXAPARIN 40 MG/0.4 ML SYRINGE SQ SCH (08:21)
[2018-04-18] MEDS: FUROSEMIDE 10 MG/ML 4 ML VIAL IV SCH (08:22)
[2018-04-18] MEDS: LORATADINE-PSEUDOEPH 5-120 MG 1 EACH TAB.ER.12H PO SCH ×2 (08:22→20:45)
[2018-04-18] MEDS: CHOLESTYRAMINE (WITH SUGAR) 4 GM PACKET PO SCH (08:22)
--- NOTE | 2018-04-18 11:45 | P.CNPUL ---
History of Present Illness Consult date: 04/17/18 Reason for consult: dyspnea History of present illness: 82-year-old female patient, who had a last hospital admission for pneumonia back in 2014 where she came in for bilateral lower lobe pneumonia. At that time the patient was treated successfully and she was discharged home. She is known to have hypertension, osteoarthritis, or less and she is morbidly obese. This patient came in yesterday to the emergency department complaining of shortness of breath as well as wheezing. Apparently the patient was treated by her primary care physician for recurrent pneumonia. This patient was supposed to be seen by pulmonology however, she continued to have increased shortness of breath and increased lower extremity edema and based on that she end up in the emergency department for further evaluation. Chest x-ray showed some cardiomegaly in addition to increased interstitial markings bilaterally which potentially suggest an underlying associated edema. The EKG showed a normal sinus rhythm with a first-degree AV block. The troponin was negative and the proBNP level was nonelevated. No reported abnormalities in the blood work. White cell count is at 7.3. The patient was seen by cardiology. The patient was started on IV Lasix 40 mg every 24 hours. She was also given DuoNeb nebulized treatment [id number] and IV Solu Medrol and a pulmonary consultation was requested. V/Q scan performed during this current admission was of a low probability. Echocardiogram is showing a preserved LV function without any significant valvular abnormalities.. The patient is known to have a chronic cardiac murmur. The patient is chronic back pain. She has been under the care of Drs. Grubbs and she's been receiving steroid shots to her back the has gained significant amount of weight in the order of 70-90 pounds over the past 5 years. Review of Systems Constitutional: Reports chills, Reports chronic pain, Reports fever, Reports weight gain Eyes: denies as per HPI, denies blurred vision, denies bulging eye, denies decreased vision, denies diplopia, denies discharge, denies dry eye, denies irritation, denies itching, denies pain, denies photophobia, denies loss of peripheral vision, denies loss of vision, denies tunnel vision/blind spots Ears: deny: decreased hearing, ear discharge, earache, tinnitus Ears, nose, mouth and throat: Denies headache, Denies sore throat Cardiovascular: Reports decreased exercise tolerance, Reports dyspnea on exertion Respiratory: Reports cough, Reports dyspnea, Reports wheezing Gastrointestinal: Reports as per HPI, Reports constipation Menstruation: Reports as per HPI Musculoskeletal: Reports as per HPI Musculoskeletal: bilateral: ankle swelling, absent: ankle pain, ankle stiffness Integumentary: Denies pruritus, Denies rash Neurological: Reports as per HPI Psychiatric: Reports as per HPI Endocrine: Reports as per HPI Hematologic/Lymphatic: Reports as per HPI Allergic/Immunologic: Reports as per HPI Past Medical History Past Medical History: Heart Failure, COPD, Hypertension, Pneumonia Additional Past Medical History / Comment(s): Previous history of pneumonia back in 2015 requiring a brief hospitalization, sciatica, RLS, hypertension, patient with history of CHF/COPD although this has not been officially established. Hypothyroidism maintained on thyroid hormone replacement History of Any Multi-Drug Resistant Organisms: None Reported Past Surgical History: Cholecystectomy, Hernia Repair Additional Past Surgical History / Comment(s): cataract sx, surgury on veins angelica legs, epidural injections in back Past Anesthesia/Blood Transfusion Reactions: No Reported Reaction, Motion Sickness Additional Past Anesthesia/Blood Transfusion Reaction / Comment(s): motion sickness on boats. clausterphobia Past Psychological History: No Psychological Hx Reported Additional Psychological History / Comment(s): Patient lives alone in 1 level home that has 4 porch steps(also has a ramp that used while alive). She is able to drive around and gets about the house on her own.has walker if needed. Smoking Status: Never smoker Past Alcohol Use History: None Reported Past Drug Use History: None Reported - Past Family History Mother Family Medical History: Congestive Heart Failure (CHF), Diabetes Mellitus, Hypertension Father Family Medical History: Congestive Heart Failure (CHF) Medications and Allergies Home Medications Medication Instructions Recorded Confirmed Type RX: rOPINIRole HCL 0.5 mg PO TID 12/25/16 04/16/18 History RX: Cholecalciferol [Vitamin D3] 1,000 unit PO DAILY 12/10/17 04/16/18 History RX: Multivitamins, Thera 1 tab PO DAILY 12/10/17 04/16/18 History [Multivitamin (formulary)] RX: Vitamin B Complex 1 cap PO DAILY 12/10/17 04/16/18 History RX: Albuterol Inhaler [Ventolin 1 - 2 puff INHALATION RT-Q6H PRN 12/11/17 Rx Hfa Inhaler] #1 inhaler RX: Loratadine-Pseudoeph 5-120 mg 1 each PO Q12HR #10 tab.er.12h 12/11/17 Rx [Claritin-D 12 Hour] Cholestyramine/Aspartame 4 gm PO DAILY 04/16/18 04/16/18 History [Cholestyramine Light Packet] Fluticasone Propionate [Flovent 110 mcg INHALATION RT-BID 04/16/18 04/16/18 History Hfa 110 mcg] Furosemide [Lasix] 40 mg PO DAILY 04/16/18 04/16/18 History Levothyroxine Sodium [Synthroid] 25 mcg PO DAILY 04/16/18 04/16/18 History RX: Albuterol Nebulized (Conc) 2.5 mg PO Q6HR 04/16/18 04/16/18 History [Ventolin Nebulized (Conc)] Allergies Allergy/AdvReac Type Severity Reaction Status Date / Time lorazepam [From Ativan] AdvReac Unknown Verified 04/16/18 14:32 Physical Exam Vitals: Vital Signs Temp Pulse Pulse Resp BP BP Pulse Ox 04/17/18 12:45 98 F 91 20 154/76 94 L 04/17/18 08:47 68 04/17/18 08:37 66 04/17/18 07:41 98.1 F 80 18 138/79 93 L 04/16/18 23:00 98.1 F 72 16 133/72 95 04/16/18 20:12 74 04/16/18 20:02 74 18 96 04/16/18 17:30 98.3 F 76 18 143/69 95 04/16/18 15:27 74 04/16/18 15:18 74 Intake and Output 04/16/18 04/17/18 04/17/18 22:59 06:59 14:59 Other: Voiding Method Toilet Toilet # Voids 2 1 Weight 108.862 kg 108.862 kg Gen. appearance obese, comfortable likely distress Head exam was generally normal. There was no scleral icterus or corneal arcus. Mucous membranes were moist. Neck was supple and without jugular venous distension, thyromegaly, or carotid bruits. Carotids were easily palpable bilaterally. There was no adenopathy. The patient has significant crowding of the posterior oropharynx. There is no goiter or neck masses. Cardiac exam revealed the PMI to be normally situated and sized. The rhythm was regular and no extrasystoles were noted during several minutes of auscultation. The first and second heart sounds were normal and physiologic splitting of the second heart sound was noted. There were no murmurs, rubs, clicks, or gallops. Lungs sounds are diminished and there is scattered expiratory wheezes bilaterally and scattered rhonchi. Abdomen is obese soft nontender. Organs cannot be accurately palpated. No direct tenderness or rebound tensile guarding. Extremities revealed +1 edema and there is no cyanosis or clubbing. Examination of the skin revealed no evidence of significant rashes, suspicious appearing nevi or other concerning lesions. Neurologic awake and alert and is no focal neurological deficit. Results - Laboratory Findings CBC and BMP: 04/16/18 16:10 04/18/18 06:50 PT/INR, D-dimer PT 10.1 sec (9.0-12.0) 04/16/18 16:10 INR 0.9 (<1.2) 04/16/18 16:10 Abnormal lab findings: Abnormal Labs 04/16/18 04/16/18 16:10 16:10 Hct 47.3 H BUN 21 H - Diagnostic Findings Chest x-ray: image reviewed Assessment and Plan Plan: Assessment 1 dyspnea along with increased cough chest congestion and wheeze, most consistent overlying pulmonary infection. Favor pneumonia as the patient's chest x-rays also showing some atelectatic changes/infiltration of the lung bases bilaterally. The patient has been treated for another bout of pneumonia in 2014 requiring inpatient therapy another bout of pneumonia in late [address] outpatient basis by her primary care physician 2 lower extremity edema. No evidence of any cardiomyopathy 3 obesity with BMI 47.6 4 chronic back pain, post pain shots 5 hypertension 6 restless leg syndrome 7 hypothyroidism Plan We'll cover this patient with a course of Levaquin 750 mg by mouth daily. We' ll give this patient Mucinex DM for cough and congestion. Continue DuoNeb that she is on the clock. Continue with diuretics. Continue IV Solu Medrol from 24 hours and Motrin this patient a prednisone burst taper at a time of discharge. She will need an outpatient function tested outpatient follow-up regarding her shortness of breath. Cardiac workup was negative. Pulmonary embolus is doubtful and the VQ scan is on a low probability.
--- NOTE | 2018-04-18 11:48 | P.PN ---
Subjective Progress Note Date: 04/18/18 On today's evaluation of 04/18/2018 seeing this patient for a follow-up. She is feeling better compared to yesterday. Less short of breath. I spoke with spastic and wheezy. Echocardiac Dru showed no abnormalities. No abnormalities and the VQ scan which do not to be of a low probability and there is improvement in lower extremity edema and the patient is feeling much better. No fever. No chills. There is some residual chest congestion. Objective - Vital Signs Vital signs: Vital Signs Temp 97.8 F 04/18/18 11:41 Pulse 76 04/18/18 11:41 Resp 20 04/18/18 11:41 BP 142/65 04/18/18 11:41 Pulse Ox 92 L 04/18/18 11:41 Intake & Output 04/17/18 04/18/18 04/18/18 18:59 06:59 18:59 Intake Total 880 Balance 880 Weight 108.862 kg 110.5 kg Intake: Oral 880 Other: Voiding Method Toilet Toilet Toilet # Voids 3 1 - Exam Gen. appearance obese, comfortable likely distress Head exam was generally normal. There was no scleral icterus or corneal arcus. Mucous membranes were moist. Neck was supple and without jugular venous distension, thyromegaly, or carotid bruits. Carotids were easily palpable bilaterally. There was no adenopathy. The patient has significant crowding of the posterior oropharynx. There is no goiter or neck masses. Cardiac exam revealed the PMI to be normally situated and sized. The rhythm was regular and no extrasystoles were noted during several minutes of auscultation. The first and second heart sounds were normal and physiologic splitting of the second heart sound was noted. There were no murmurs, rubs, clicks, or gallops. Lungs sounds are diminished and there is scattered expiratory wheezes bilaterally and scattered rhonchi. Abdomen is obese soft nontender. Organs cannot be accurately palpated. No direct tenderness or rebound tensile guarding. Extremities revealed +1 edema and there is no cyanosis or clubbing. Examination of the skin revealed no evidence of significant rashes, suspicious appearing nevi or other concerning lesions. Neurologic awake and alert and is no focal neurological deficit. - Labs CBC & Chem 7: 04/16/18 16:10 04/18/18 06:50 Labs: Abnormal Lab Results - Last 24 Hours (Table) 04/18/18 Range/Units 06:50 Chloride 109 H (98-107) mmol/L BUN 25 H (7-17) mg/dL Glucose 138 H (74-99) mg/dL Assessment and Plan Plan: Assessment 1 dyspnea along with increased cough chest congestion and wheeze, most consistent overlying pulmonary infection. Favor pneumonia as the patient's chest x-rays also showing some atelectatic changes/infiltration of the lung bases bilaterally. The patient has been treated for another bout of pneumonia in 2014 requiring inpatient therapy another bout of pneumonia in late [address] outpatient basis by her primary care physician 2 lower extremity edema. No evidence of any cardiomyopathy 3 obesity with BMI 47.6 4 chronic back pain, post pain shots 5 hypertension 6 restless leg syndrome 7 hypothyroidism Plan Patient is improving. Continue Levaquin. Continue Mucinex. Prednisone burst taper in a.m. Discharge in a.m. Outpatient PFT.
[2018-04-18] MEDS ORDERED: DILTIAZEM DRIP BOLUS FROM BAG 1 MG SOLN IV ONE (13:01)
[2018-04-18] MEDS: DILTIAZEM 50 MG in SODIUM CHLORIDE 0.9% 40 ML IV SCH ×3 (13:54→23:17)
[2018-04-18] MEDS: guaiFENesin-DM 600/30MG 1 EACH TAB.ER.12H PO SCH ×2 (14:18→21:16)
--- NOTE | 2018-04-18 16:37 | P.PN ---
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 The patient has been treated by her primary care physician recently for what she called it recurrent pneumonia. She was sent to undergo an echocardiogram yesterday here at [facility] and during the echo with the patient was very short of breath as well as she was experiencing wheezing. She was referred to go to the pulmonary clinic where she was sent directly to the emergency room. The patient describes slowly progressive exertional dyspnea for the last several months. No orthopnea. No PND. For the last several weeks, she did load bilateral lower extremities edema most prominent around the ankles bilaterally. She stated that she gained significant amount of weight very slowly as well as. The patient's daughter stated that the patient used to walk for at least one block without any issues but lately she cannot make it even at home to do her daily activities without being short of breath. No symptoms of chest pain or chest discomfort. The patient stated that she never been diagnosed was congestive heart failure in the past and never seen any home decorator in the past. On physical examination she does have very prominent bilateral pitting edema. The chest seems to be clear. Beside that she was tachycardic with a systolic murmur at the right and left upper sternal border. The BNP came in to be below 100. The chest x-ray showed chronic changes bilaterally. The EKG showed sinus rhythm with nonspecific changes. The rest of her blood work came in to be unremarkable. On follow-up with the patient today, 04/25/2018, she is feeling better internal shortness of breath and the bilateral lower extremities edema by the ankles has improved significantly. I did recommend continue the IV Lasix for additional 24 hours. Objective - Vital Signs Vital signs: Vital Signs Temp 97.8 F 04/18/18 11:41 Pulse 95 04/18/18 15:00 Resp 20 04/18/18 15:00 BP 135/63 04/18/18 14:20 Pulse Ox 94 L 04/18/18 14:12 Intake & Output 04/17/18 04/18/18 04/18/18 18:59 06:59 18:59 Intake Total 880 Balance 880 Weight 108.862 kg 110.5 kg Intake: Oral 880 Other: Voiding Method Toilet Toilet Toilet # Voids 3 1 - Constitutional General appearance: Present: no acute distress - Respiratory Respiratory: bilateral: wheezing - Cardiovascular Rhythm: regular Heart sounds: normal: S1, S2 Abnormal Heart Sounds: Present: systolic murmur - Labs CBC & Chem 7: 04/16/18 16:10 04/18/18 06:50 Labs: Abnormal Lab Results - Last 24 Hours (Table) 04/18/18 Range/Units 06:50 Chloride 109 H (98-107) mmol/L BUN 25 H (7-17) mg/dL Glucose 138 H (74-99) mg/dL Assessment and Plan Assessment: Assessment #1 progressive exertional dyspnea and bilateral lower extremities edema #2 congestive heart failure exacerbation probably related to diastolic dysfunction #3 heart murmur of unknown etiology at this point #4 obesity #5 hypertension Plan #1 I would follow-up on the echocardiogram which was performed yesterday #2 continue the current dose of Lasix IV #3 follow-up with the patient
--- NOTE | 2018-04-18 22:05 | PN ---
PROGRESS NOTE DATE OF SERVICE: 04/18/2018 PRESENTING COMPLAINT: Short of breath, some wheezing. INTERVAL HISTORY: This patient presented with shortness of breath, some congestion and wheezing. Seen by Dr. Moore today, felt to be element of pneumonia. The patient's perfusion scan was negative for PE. 2D echo showed preserved LV function. Per Dr. Self, patient may have an element of diastolic dysfunction. The patient did tolerate a diet. The patient does inform me, in the last four years, she has put on about 90 pounds because of decreased activity. Patient did run into atrial fibrillation with rapid ventricular rate for which patient was given IV Cardizem. REVIEW OF SYSTEMS: Done for constitutional, cardiovascular, GI, pulmonary; relevant findings as above. CURRENT MEDICATIONS: Reviewed that include IV Cardizem, IV Solu-Medrol. Also is getting Claritin-D. PHYSICAL EXAMINATION: VITAL SIGNS: Temperature 97.9, pulse 77, respiration 20, blood pressure 144/65, pulse ox 93 percent on 2 L. GENERAL APPEARANCE: Lying in bed, a bit tired-appearing. EYES: Pupils equal. Conjunctivae normal. NECK: JVD not raised. Mass not palpable. RESPIRATORY: Effort increased. LUNGS: Decreased breath sounds. CARDIOVASCULAR: 1st and 2nd sounds normal. Some edema. ABDOMEN: Distended, soft. Liver and spleen not palpable. PSYCHIATRY: Alert and oriented x3. Mood and affect normal. INVESTIGATIONS: Potassium 4.9, BUN 25, creatinine 0.75. TSH 0.505. ASSESSMENT: 1. Possible pneumonia. 2. Morbid obesity BMI 46.9, possible obesity hypoventilation syndrome. The patient has put on about additional 90 pounds in the last 4 years. 3. Primary osteoarthritis of the spine. 4. Restless legs syndrome. 5. Essential hypertension. 6. Acute congestive heart failure exacerbation from diastolic dysfunction. Ejection fraction 55-60 percent. 7. Paroxysmal atrial fibrillation, rapid ventricular rate. Note patient is also on Claritin-D. 8. TSH on the lower side. PLAN: Patient is on a very small dose of Synthroid. TSH in the lower side normal. Will DC the Synthroid and we will also stop patient's Claritin-D as that could be contributing to her arrhythmia. The patient to continue on Levaquin. Continue with bronchodilators. Follow. MMODL / IJN: [id number] /
[2018-04-19] MEDS: DILTIAZEM 50 MG in SODIUM CHLORIDE 0.9% 40 ML IV SCH ×2 (01:27→12:12)
[2018-04-19 06:48] LABS: Anion Gap 9 mmol/L; Calcium 9.5 mg/dL (8.4-10.2); Carbon Dioxide 22 mmol/L (22-30); Chloride 109 mmol/L (98-107); Glucose 135 mg/dL (74-99); Sodium 140 mmol/L (137-145)
[2018-04-19 06:50] LABS: Potassium 4.8 mmol/L (3.5-5.1)
[2018-04-19 06:51] LABS: Blood Urea Nitrogen 30 mg/dL (7-17)
[2018-04-19] MEDS: IPRATROPIUM-ALBUTEROL 3 ML NEB INHALATION SCH ×4 (07:52→19:03)
[2018-04-19] MEDS: methylPREDNISolone SOD SUCCI 40 MG/ML 1 ML VIAL IV SCH ×2 (08:31→15:12)
[2018-04-19] MEDS: FUROSEMIDE 10 MG/ML 4 ML VIAL IV SCH (08:31)
[2018-04-19] MEDS: guaiFENesin-DM 600/30MG 1 EACH TAB.ER.12H PO SCH ×2 (08:31→21:03)
[2018-04-19] MEDS: CHOLESTYRAMINE (WITH SUGAR) 4 GM PACKET PO SCH (08:32)
[2018-04-19] MEDS: ENOXAPARIN 40 MG/0.4 ML SYRINGE SQ SCH (08:32)
[2018-04-19] MEDS ORDERED: LEVOFLOXACIN 750 MG TAB PO SCH (09:00)
--- NOTE | 2018-04-19 11:50 | P.PN ---
Subjective Progress Note Date: 04/19/18 Principal diagnosis: CHF secondary to diastole dysfunction This is a pleasant 82-year-old female patient with a past medical history significant for hypertension as well as obesity was referred to go to the emergency room for further evaluation off shortness of breath as well as wheezing. The patient has been treated by her primary care physician recently for what she called it recurrent pneumonia. She was sent to undergo an echocardiogram yesterday here at [facility] and during the echo with the patient was very short of breath as well as she was experiencing wheezing. She was referred to go to the pulmonary clinic where she was sent directly to the emergency room. The patient describes slowly progressive exertional dyspnea for the last several months. No orthopnea. No PND. For the last several weeks, she did load bilateral lower extremities edema most prominent around the ankles bilaterally. She stated that she gained significant amount of weight very slowly as well as. The patient's daughter stated that the patient used to walk for at least one block without any issues but lately she cannot make it even at home to do her daily activities without being short of breath. No symptoms of chest pain or chest discomfort. The patient stated that she never been diagnosed was congestive heart failure in the past and never seen any resource protection specialist in the past. On physical examination she does have very prominent bilateral pitting edema. The chest seems to be clear. Beside that she was tachycardic with a systolic murmur at the right and left upper sternal border. The BNP came in to be below 100. The chest x-ray showed chronic changes bilaterally. The EKG showed sinus rhythm with nonspecific changes. The rest of her blood work came in to be unremarkable. On follow-up with the patient today, April 192018, she seems to be requiring the oxygen continuously. She did have an episode of SVT last night and she was converted to normal sinus mechanism on Cardizem IV. I'm going to DC the Cardizem IV and start her on Cardizem by mouth. Beside that she continues to be seen and followed by the pulmonary team and she was told that she has bronchitis. Objective - Vital Signs Vital signs: Vital Signs Temp 98.1 F 04/19/18 11:23 Pulse 70 04/19/18 11:44 Resp 18 04/19/18 11:23 BP 146/63 04/19/18 11:23 Pulse Ox 91 L 04/19/18 11:23 Intake & Output 04/18/18 04/19/18 04/19/18 18:59 06:59 18:59 Intake Total 50 47.000 400 Output Total 1 0 Balance 50 46.000 400 Weight 111.5 kg Intake: Intake, IV Titration 50 47.000 Amount Diltiazem 50 mg In Sodium 50 47.000 Chloride 0.9% 40 ml @ 10 MG/HR 10 mls/hr IV .Q5H [facility] Rx#:[id number] Oral 400 Output: Urine 1 0 Other: Voiding Method Toilet Toilet # Voids 1 - Constitutional General appearance: Present: no acute distress - Respiratory Respiratory: bilateral: diminished - Cardiovascular Rhythm: regular Heart sounds: normal: S1, S2 - Labs CBC & Chem 7: 04/16/18 16:10 04/19/18 06:14 Labs: Abnormal Lab Results - Last 24 Hours (Table) 04/19/18 Range/Units 06:14 Chloride 109 H (98-107) mmol/L BUN 30 H (7-17) mg/dL Glucose 135 H (74-99) mg/dL Assessment and Plan Assessment: Assessment #1 progressive exertional dyspnea and bilateral lower extremities edema #2 congestive heart failure exacerbation probably related to diastolic dysfunction #3 heart murmur of unknown etiology at this point #4 obesity #5 hypertension #6 SVT Plan #1 DC Cardizem IV and start the patient on Cardizem by mouth #2 continue IV diuretics for additional 24 hours #3 switch her to oral diuretics tomorrow #4 continue monitor the kidney function and electrolytes
[2018-04-19] MEDS: DILTIAZEM CD 120 MG CAP.ER.24H PO SCH (12:15)
--- NOTE | 2018-04-19 13:21 | P.PN ---
Subjective Progress Note Date: 04/19/18 Principal diagnosis: Dyspnea, cough, chest congestion and wheezing is likely related to a pulmonary infection, possibly pneumonia, his x-ray shows atelectatic changes/infiltration of the lung bases bilaterally On today's evaluation of 04/18/2018 seeing this patient for a follow-up. She is feeling better compared to yesterday. Less short of breath. I spoke with spastic and wheezy. Echocardiac Dru showed no abnormalities. No abnormalities and the VQ scan which do not to be of a low probability and there is improvement in lower extremity edema and the patient is feeling much better. No fever. No chills. There is some residual chest congestion. On 04/19/2018 patient seen in follow-up on selective care unit, apparently yesterday after her breathing treatment patient became very tachycardic, according to the nursing staff patient remained in sinus rhythm, but the rate was quite tachycardic, and patient was started on Cardizem drip she was given IV bolus and shortly thereafter the rate better controlled. Currently she is in sinus rhythm with a rate of 64-74. Denied any chest pain, her breathing is improving, her oxygen was removed, and her pulse ox is 90-91%, she is afebrile, hemodynamically stable, lung sounds are diminished with coarse bibasilar crackles. No fever or chills. Her cough is non-congested, there is no phlegm production, her left-sided chest discomfort was present on admission has been resolved. She is being treated with empiric antibiotics, she is on Levaquin, she remains on IV Solu-Medrol, she is much less bronchospastic on today's exam, she is on IV Lasix, and her lower extremity edema is improving. Her family is at the bedside, and has a multitude of questions, the questions were answered to the best of my knowledge. Concerns were addressed, overall patient is improving. From pulmonary perspective she is stable, she could be considered for discharge home today or tomorrow as long as she is cleared by the cardiology team. Objective - Vital Signs Vital signs: Vital Signs Temp 98.1 F 04/19/18 11:23 Pulse 74 04/19/18 11:54 Resp 18 04/19/18 11:23 BP 146/63 04/19/18 11:23 Pulse Ox 91 L 04/19/18 11:23 Intake & Output 04/18/18 04/19/18 04/19/18 18:59 06:59 18:59 Intake Total 50 47.000 400 Output Total 1 0 Balance 50 46.000 400 Weight 111.5 kg Intake: Intake, IV Titration 50 47.000 Amount Diltiazem 50 mg In Sodium 50 47.000 Chloride 0.9% 40 ml @ 10 MG/HR 10 mls/hr IV .Q5H [facility] Rx#:[id number] Oral 400 Output: Urine 1 0 Other: Voiding Method Toilet Toilet # Voids 1 - Exam GENERAL EXAM: Alert, pleasant, obese 82-year-old white female comfortable in no apparent distress. HEAD: Normocephalic/atraumatic. EYES: Normal reaction of pupils, equal size. Conjunctiva pink, sclera white. NOSE: Clear with pink turbinates. THROAT: No erythema or exudates. NECK: No masses, no JVD, no thyroid enlargement, no adenopathy. CHEST: No chest wall deformity. Symmetrical expansion. LUNGS: Equal air entry with no crackles, wheeze, rhonchi or dullness. CVS: Regular rate and rhythm, normal S1 and S2, no gallops, no murmurs, no rubs ABDOMEN: Soft, nontender. No hepatosplenomegaly, normal bowel sounds, no guarding or rigidity. EXTREMITIES: No clubbing, positive edema, no cyanosis, 2+ pulses and upper and lower extremities. MUSCULOSKELETAL: Muscle strength and tone normal. SPINE: No scoliosis or deformity SKIN: No rashes CENTRAL NERVOUS SYSTEM: Alert and oriented -3. No focal deficits, tone is normal in all 4 extremities. PSYCHIATRIC: Alert and oriented -3. Appropriate affect. Intact judgment and insight. - Labs CBC & Chem 7: 04/16/18 16:10 04/19/18 06:14 Labs: Abnormal Lab Results - Last 24 Hours (Table) 04/19/18 Range/Units 06:14 Chloride 109 H (98-107) mmol/L BUN 30 H (7-17) mg/dL Glucose 135 H (74-99) mg/dL Assessment and Plan Plan: Assessment: 1 dyspnea along with increased cough chest congestion and wheeze, most consistent a pulmonary infection. Favor pneumonia as the patient's chest x- rays also showing some atelectatic changes/infiltration of the lung bases bilaterally. The patient has been treated for another bout of pneumonia in 2015 requiring inpatient therapy another bout of pneumonia in late 2018 on outpatient basis by her primary care physician 2 lower extremity edema. No evidence of any cardiomyopathy 3 obesity with BMI 47.6 4 chronic back pain, post pain shots 5 hypertension 6 restless leg syndrome 7 hypothyroidism 8 episode of SVT possibly triggered by nebulized bronchodilators Plan: Patient is improving, less dyspneic, oxygen was removed, increase ambulation, she is receiving IV diuretics, there has been improvement in the appearance of lower extremity edema. She less bronchospastic on today's exam cough is not congested, no fever or chills, we'll continue the empiric antibiotics, continue with IV steroids as it appears that she is going to stay inpatient for another night per cardiology. We'll switch to oral steroids tomorrow, may be considered for discharge home in next 24 hours as low she continues to improve, and been cleared by cardiology. I performed a history & physical examination of the patient and discussed their management with my nurse practitioner, Tigist Gonsales. I reviewed the nurse practitioner's note and agree with the documented findings and plan of care. Lung sounds are positive for coarse bibasilar crackles. The findings and the impression was discussed with the patient. I attest to the documentation by the nurse practitioner. Time with Patient: Less than 30
[2018-04-20] MEDS: methylPREDNISolone SOD SUCCI 40 MG/ML 1 ML VIAL IV SCH ×2 (00:23→09:18)
[2018-04-20 06:47] LABS: Calcium 9.5 mg/dL (8.4-10.2); Potassium 4.5 mmol/L (3.5-5.1)
[2018-04-20] MEDS: IPRATROPIUM-ALBUTEROL 3 ML NEB INHALATION SCH ×4 (07:39→20:56)
--- NOTE | 2018-04-20 07:51 | PN ---
PROGRESS NOTE DATE OF SERVICE: 04/19/2018 PRESENTING COMPLAINT: Tired. INTERVAL HISTORY: This patient is seen by me yesterday. PE was ruled out. Patient is felt to have pneumonia, hypoventilation syndrome, congestive heart failure, and a contribution from AFIB. Patient less bronchospastic, doing a bit better. Eating better, sitting up on a chair. REVIEW OF SYSTEMS: Done for constitutional, cardiovascular, GI, pulmonary; relevant findings as above. CURRENT MEDICATIONS: Reviewed that include p.o. Cardizem, IV Lasix, IV Solu-Medrol, Levaquin, DuoNeb. PHYSICAL EXAMINATION: Temperature 98.1, pulse 88, respiration 20, blood pressure 116/68, pulse ox 93% on room air. GENERAL APPEARANCE: Propped up in chair, awake, looking comfortable. EYES: Pupil equal, conjunctivae normal. NECK: JVD not raised. Mass not palpable. RESPIRATORY: Effort increased. LUNGS: Less bronchospasms. CARDIOVASCULAR: Heart sounds irregular. Some edema. ABDOMEN: Distended, soft. Liver and spleen not palpable. PSYCHIATRY: Alert and oriented x3. Mood and affect normal. INVESTIGATIONS: Potassium 4.8, BUN 30, creatinine 0.71. ASSESSMENT: 1. Possible pneumonia, responding to antibiotic. 2. Morbid obesity, body mass index of 46.9. 3. Possible obesity hypoventilation syndrome. Patient has put on 90 pounds in the last 4 years. 4. Primary osteoarthritis of the spine. 5. Restless legs syndrome. 6. Essential hypertension. 7. Acute congestive heart failure exacerbation from diastolic dysfunction. Ejection fraction 55%-60%. 8. Paroxysmal atrial fibrillation with rapid ventricular rate, now better controlled. PLAN: Continue current medication and treatment plan. Patient is overall doing better. Hopefully, looking for patient getting discharged tomorrow. MMODL / IJN: [id number] /
[2018-04-20] MEDS: guaiFENesin-DM 600/30MG 1 EACH TAB.ER.12H PO SCH ×2 (09:19→21:40)
[2018-04-20] MEDS: FUROSEMIDE 10 MG/ML 4 ML VIAL IV SCH (09:19)
[2018-04-20] MEDS: ENOXAPARIN 40 MG/0.4 ML SYRINGE SQ SCH (09:19)
[2018-04-20] MEDS: CHOLESTYRAMINE (WITH SUGAR) 4 GM PACKET PO SCH (09:19)
[2018-04-20] MEDS: DILTIAZEM CD 120 MG CAP.ER.24H PO SCH (09:19)
--- NOTE | 2018-04-20 12:10 | P.PN ---
Subjective Principal diagnosis: CHF secondary to diastole dysfunction This is a pleasant 82-year-old female patient with a past medical history significant for hypertension as well as obesity was referred to go to the emergency room for further evaluation off shortness of breath as well as wheezing. The patient has been treated by her primary care physician recently for what she called it recurrent pneumonia. She was sent to undergo an echocardiogram yesterday here at [facility] and during the echo with the patient was very short of breath as well as she was experiencing wheezing. She was referred to go to the pulmonary clinic where she was sent directly to the emergency room. The patient describes slowly progressive exertional dyspnea for the last several months. No orthopnea. No PND. For the last several weeks, she did load bilateral lower extremities edema most prominent around the ankles bilaterally. She stated that she gained significant amount of weight very slowly as well as. The patient's daughter stated that the patient used to walk for at least one block without any issues but lately she cannot make it even at home to do her daily activities without being short of breath. No symptoms of chest pain or chest discomfort. The patient stated that she never been diagnosed was congestive heart failure in the past and never seen any gum maker in the past. On follow-up with the patient today, she is overall feeling better. No more episode of SVT. The blood pressure continues to be elevated in the 160s millimeters mercury I would increase the dose of Cardizem to 180 mg by mouth daily. She is possibly going home today. Objective - Vital Signs Vital signs: Vital Signs Temp 97.8 F 04/20/18 11:50 Pulse 79 04/20/18 11:50 Resp 18 04/20/18 11:50 BP 165/70 04/20/18 11:50 Pulse Ox 90 L 04/20/18 11:50 Intake & Output 04/19/18 04/20/18 04/20/18 18:59 06:59 18:59 Intake Total 500 670 240 Output Total 0 300 Balance 500 670 -60 Weight 111.5 kg Intake: Oral 500 670 240 Output: Urine 0 300 Other: Voiding Method Toilet Toilet # Voids 1 1 - Constitutional General appearance: Present: no acute distress - Respiratory Respiratory: bilateral: CTA - Cardiovascular Rhythm: regular Heart sounds: normal: S1, S2 - Labs CBC & Chem 7: 04/16/18 16:10 04/20/18 06:15 Labs: Abnormal Lab Results - Last 24 Hours (Table) 04/20/18 Range/Units 06:15 Chloride 109 H (98-107) mmol/L BUN 40 H (7-17) mg/dL Glucose 147 H (74-99) mg/dL Assessment and Plan Assessment: Assessment #1 progressive exertional dyspnea and bilateral lower extremities edema #2 congestive heart failure exacerbation probably related to diastolic dysfunction #3 heart murmur of unknown etiology at this point #4 obesity #5 hypertension #6 SVT Plan #1 increase the dose of Cardizem to 180 mg by mouth daily #2 continue Lasix by mouth #3 patient can be discharged home
--- NOTE | 2018-04-20 12:34 | P.PN ---
Subjective Progress Note Date: 04/20/18 Principal diagnosis: Dyspnea, cough, chest congestion and wheezing is likely related to a pulmonary infection, possibly pneumonia, his x-ray shows atelectatic changes/infiltration of the lung bases bilaterally On today's evaluation of 04/18/2018 seeing this patient for a follow-up. She is feeling better compared to yesterday. Less short of breath. I spoke with spastic and wheezy. Echocardiac Dru showed no abnormalities. No abnormalities and the VQ scan which do not to be of a low probability and there is improvement in lower extremity edema and the patient is feeling much better. No fever. No chills. There is some residual chest congestion. On 04/19/2018 patient seen in follow-up on selective care unit, apparently yesterday after her breathing treatment patient became very tachycardic, according to the nursing staff patient remained in sinus rhythm, but the rate was quite tachycardic, and patient was started on Cardizem drip she was given IV bolus and shortly thereafter the rate better controlled. Currently she is in sinus rhythm with a rate of 64-74. Denied any chest pain, her breathing is improving, her oxygen was removed, and her pulse ox is 90-91%, she is afebrile, hemodynamically stable, lung sounds are diminished with coarse bibasilar crackles. No fever or chills. Her cough is non-congested, there is no phlegm production, her left-sided chest discomfort was present on admission has been resolved. She is being treated with empiric antibiotics, she is on Levaquin, she remains on IV Solu-Medrol, she is much less bronchospastic on today's exam, she is on IV Lasix, and her lower extremity edema is improving. Her family is at the bedside, and has a multitude of questions, the questions were answered to the best of my knowledge. Concerns were addressed, overall patient is improving. From pulmonary perspective she is stable, she could be considered for discharge home today or tomorrow as long as she is cleared by the cardiology team. On 04/20/2017 patient seen in follow-up on selective care unit, she is on room air, lung sounds are clear to auscultation on today's exam, no wheezing, no rhonchi, patient has been tolerating ambulation. No fever or chills, has some lower extremity edema, she has been diuresed, she remains on IV Lasix of 40 mg daily, she is on antibiotics in the form of Levaquin, and IV Solu-Medrol. Improved, no acute events overnight, incentive stable, patient has been cleared for discharge by cardiology today, she is clear for discharge from pulmonary perspective as well, follow up with Dr. Moore in the office in one week Objective - Vital Signs Vital signs: Vital Signs Temp 97.8 F 04/20/18 11:50 Pulse 79 04/20/18 11:50 Resp 18 04/20/18 11:50 BP 165/70 04/20/18 11:50 Pulse Ox 90 L 04/20/18 11:50 Intake & Output 04/19/18 04/20/18 04/20/18 18:59 06:59 18:59 Intake Total 500 670 240 Output Total 0 300 Balance 500 670 -60 Weight 111.5 kg Intake: Oral 500 670 240 Output: Urine 0 300 Other: Voiding Method Toilet Toilet # Voids 1 1 - Exam GENERAL EXAM: Alert, pleasant, obese 82-year-old white female comfortable in no apparent distress. HEAD: Normocephalic/atraumatic. EYES: Normal reaction of pupils, equal size. Conjunctiva pink, sclera white. NOSE: Clear with pink turbinates. THROAT: No erythema or exudates. NECK: No masses, no JVD, no thyroid enlargement, no adenopathy. CHEST: No chest wall deformity. Symmetrical expansion. LUNGS: Equal air entry with no crackles, wheeze, rhonchi or dullness. CVS: Regular rate and rhythm, normal S1 and S2, no gallops, no murmurs, no rubs ABDOMEN: Soft, nontender. No hepatosplenomegaly, normal bowel sounds, no guarding or rigidity. EXTREMITIES: No clubbing, positive edema, no cyanosis, 2+ pulses and upper and lower extremities. MUSCULOSKELETAL: Muscle strength and tone normal. SPINE: No scoliosis or deformity SKIN: No rashes CENTRAL NERVOUS SYSTEM: Alert and oriented -3. No focal deficits, tone is normal in all 4 extremities. PSYCHIATRIC: Alert and oriented -3. Appropriate affect. Intact judgment and insight. - Labs CBC & Chem 7: 04/16/18 16:10 04/20/18 06:15 Labs: Abnormal Lab Results - Last 24 Hours (Table) 04/20/18 Range/Units 06:15 Chloride 109 H (98-107) mmol/L BUN 40 H (7-17) mg/dL Glucose 147 H (74-99) mg/dL Assessment and Plan Plan: Assessment: 1 dyspnea along with increased cough chest congestion and wheeze, most consistent a pulmonary infection. Favor pneumonia as the patient's chest x- rays also showing some atelectatic changes/infiltration of the lung bases bilaterally. The patient has been treated for another bout of pneumonia in 2014 requiring inpatient therapy another bout of pneumonia in late 2018 on outpatient basis by her primary care physician 2 lower extremity edema. No evidence of any cardiomyopathy 3 obesity with BMI 47.6 4 chronic back pain, post pain shots 5 hypertension 6 restless leg syndrome 7 hypothyroidism 8 episode of SVT possibly triggered by nebulized bronchodilators Plan: Patient continues to improve, she is tolerating ambulation, she is on room air, no fever or chills, she still being diuresis, she has been cleared for discharge by cardiology, still has some lower extremity edema, but overall patient is less dyspneic, not bronchospastic or congested. We will switch to oral prednisone today, complete outpatient course of oral Levaquin, follow up with Dr. Moore in the office in 7-10 days I performed a history & physical examination of the patient and discussed their management with my nurse practitioner, Tigist Gonsales. I reviewed the nurse practitioner's note and agree with the documented findings and plan of care. Lung sounds are positive for clear breath sounds. The findings and the impression was discussed with the patient. I attest to the documentation by the nurse practitioner. Time with Patient: Less than 30
--- NOTE | 2018-04-21 01:22 | PN ---
PROGRESS NOTE DATE OF SERVICE: 04/20/2018. PRESENTING COMPLAINT: Feeling better. INTERVAL HISTORY: This patient is admitted with pneumonia, hypoventilation syndrome, congestive heart failure, atrial fibrillation, pneumonia and bronchospasm. The patient's bronchospasm is nearly resolved. Was doing well this afternoon. Patient did have a run for about 5 minutes of arrhythmia, could have been atrial fibrillation. The patient was going to be discharged but I held back to see how she does. Did encourage to ambulate to see if we could reproduce the same. REVIEW OF SYSTEMS: Done for constitutional, cardiovascular, GI, pulmonary; relevant findings as above. Overall, otherwise patient is really feeling much better. CURRENT MEDICATIONS: Reviewed, that include Cardizem CD 180 mg, IV Lasix, p.o. Levaquin, oral prednisone. PHYSICAL EXAMINATION: VITAL SIGNS: Temperature 97.4 pulse 74, respiratory 18, blood pressure 136/74, pulse ox 92 percent on room air. GENERAL APPEARANCE: Sitting up in a chair, comfortable. EYES: Pupils equal. Conjunctivae normal. NECK: JVD not raised. Mass not palpable. Respiratory effort normal. LUNGS: Bronchospasm resolved. CARDIOVASCULAR: Heart sounds irregular. Some edema. ABDOMEN: Soft, nontender. Liver and spleen not palpable. PSYCHIATRY: Alert and oriented x3. Mood and affect is normal. INVESTIGATIONS: Potassium 4.5, BUN 40, creatinine 0.85. ASSESSMENT: 1. Pneumonia, responded well to antibiotics, complete course. 2. Morbid obesity BMI 46.9. 3. Obesity hypoventilation syndrome. Patient has put on about 90 pounds in the last 4 years. 4. Primary osteoarthritis of the spine. 5. Essential hypertension. 6. Restless legs syndrome. 7. Acute congestive heart failure exacerbation from diastolic dysfunction. Ejection fraction 55 to 60%, improved. 8. Paroxysmal atrial fibrillation again with another episode this afternoon. We will watch the patient another 24 hours. The patient was seen by Cardiology earlier today. The patient is already on Cardizem CD 180 mg. Overall doing much better. MMODL / IJN: [id number] /
[2018-04-21 06:45] LABS: Calcium 9.3 mg/dL (8.4-10.2); Potassium 4.3 mmol/L (3.5-5.1)
[2018-04-21] MEDS: IPRATROPIUM-ALBUTEROL 3 ML NEB INHALATION SCH ×3 (07:52→15:58)
[2018-04-21] MEDS: CHOLESTYRAMINE (WITH SUGAR) 4 GM PACKET PO SCH (08:50)
[2018-04-21] MEDS: guaiFENesin-DM 600/30MG 1 EACH TAB.ER.12H PO SCH (08:51)
[2018-04-21] MEDS: ENOXAPARIN 40 MG/0.4 ML SYRINGE SQ SCH (08:51)
[2018-04-21] MEDS ORDERED: LEVOFLOXACIN 750 MG TAB PO SCH (09:00)
[2018-04-21] MEDS ORDERED: DILTIAZEM CD 180 MG CAP.ER.24H PO SCH (09:00)
[2018-04-21] MEDS ORDERED: FUROSEMIDE 40 MG TAB PO SCH (09:00)
[2018-04-21] MEDS ORDERED: predniSONE 10 MG TAB PO SCH (09:00)
[2018-04-21 10:57] VITALS: TEMP 97.8
--- NOTE | 2018-04-21 11:38 | P.PN ---
Subjective Progress Note Date: 04/21/18 Principal diagnosis: CHF secondary to diastole dysfunction This is a pleasant 82-year-old female patient with a past medical history significant for hypertension as well as obesity was referred to go to the emergency room for further evaluation off shortness of breath as well as wheezing. The patient has been treated by her primary care physician recently for what she called it recurrent pneumonia. She was sent to undergo an echocardiogram yesterday here at [facility] and during the echo with the patient was very short of breath as well as she was experiencing wheezing. She was referred to go to the pulmonary clinic where she was sent directly to the emergency room. The patient describes slowly progressive exertional dyspnea for the last several months. No orthopnea. No PND. For the last several weeks, she did load bilateral lower extremities edema most prominent around the ankles bilaterally. She stated that she gained significant amount of weight very slowly as well as. The patient's daughter stated that the patient used to walk for at least one block without any issues but lately she cannot make it even at home to do her daily activities without being short of breath. No symptoms of chest pain or chest discomfort. 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 On follow-up with the patient today, April [id number] she is overall feeling better. No more episode of SVT. The blood pressure continues to be elevated and during the night the heart rate has been going up. I would increase the dose of Cardizem to 240 mg by mouth daily. Objective - Vital Signs Vital signs: Vital Signs Temp 97.8 F 04/21/18 08:51 Pulse 76 04/21/18 11:26 Resp 18 04/21/18 08:51 BP 131/68 04/21/18 08:51 Pulse Ox 92 L 04/21/18 08:51 Intake & Output 04/20/18 04/21/18 04/21/18 18:59 06:59 18:59 Intake Total 702 600 Output Total 300 Balance 402 600 Weight 110.9 kg Intake: Oral 702 600 Output: Urine 300 Other: Voiding Method Toilet Toilet Toilet # Voids 1 1 - Constitutional General appearance: Present: no acute distress - Respiratory Respiratory: bilateral: diminished - Cardiovascular Rhythm: regular Heart sounds: normal: S1, S2 - Labs CBC & Chem 7: 04/16/18 16:10 04/21/18 05:39 Labs: Abnormal Lab Results - Last 24 Hours (Table) 04/21/18 Range/Units 05:39 Chloride 109 H (98-107) mmol/L BUN 44 H (7-17) mg/dL Glucose 128 H (74-99) mg/dL Assessment and Plan Assessment: Assessment #1 progressive exertional dyspnea and bilateral lower extremities edema #2 congestive heart failure exacerbation probably related to diastolic dysfunction #3 heart murmur of unknown etiology at this point #4 obesity #5 hypertension #6 SVT Plan #1 increase the dose of Cardizem to 240 mg by mouth daily #2 continue Lasix by mouth #3 patient can be discharged home
[2018-04-21 16:56] VITALS: BP 163/67; PULSE 69; RESP 18
[2018-04-22] MEDS ORDERED: DILTIAZEM CD 240 MG CAP.ER.24H PO SCH (09:00)
--- NOTE | 2018-04-28 12:19 | DS ---
DISCHARGE SUMMARY DATE OF ADMISSION: 04/16/2018 DATE OF DISCHARGE: 04/21/2018 FINAL DIAGNOSES: 1. Pneumonia, suspect gram-negative organism, POA completed course. 2. Morbid obesity, body mass index 46.9. 3. Obesity hypoventilation syndrome, patient has put on about 90 pounds in the last 4 years. 4. Primary osteoarthritis of the spine. 5. Essential hypertension. 6. Restless legs syndrome. 7. Acute congestive heart failure exacerbation from diastolic dysfunction. Ejection fraction 55% to 60%, POA. 8. Supraventricular tachycardia, self-limiting. Patient does not have atrial fibrillation. HOSPITAL COURSE: This patient presented with shortness of breath, edema, felt to have a combination of pneumonia, CHF exacerbation. The patient's wheezing and shortness of breath, greatly improved. The patient's bronchospasm greatly improved. Feeling much better by the time of discharge. The patient did have a run of arrhythmia determined by Dr. Self to be SVT, not atrial fibrillation. Care was discussed with the patient in detail on day of discharge. Questions were answered. I did explain to her that she will need support in the long run because of her physical condition to which she understands. PHYSICAL EXAMINATION: On examination, afebrile. Pulse 69, respiration 18, blood pressure 150/72, pulse ox 93% on room air. LUNGS: Fair entry. Mild edema. PSYCH: AO x3. INVESTIGATIONS: White count 7.3, hemoglobin 14.8, BUN 44, creatinine 0.85. ProBNP was 745. TSH at 0.5. CONSULTATIONS: Dr. Self from Cardiology; Dr. Moore/Dr. Greer from Pulmonary. Discussion and discharge planning more than 35 minutes. DISCHARGE MEDICATIONS: 1. Ropinirole 0.5 mg p.o. t.i.d. 2. Vitamin D3, 1000 units p.o. daily. 3. Multivitamin 1 tablet p.o. daily. 4. Vitamin B complex 1 capsule p.o. daily. 5. Ventolin HFA 1 to 2 puffs q.6 p.r.n. 6. Ventolin nebulizer 2.5 q.6. 7. Cholestyramine 4 grams p.o. daily. 8. Flovent HFA 110 mcg b.i.d. 9. Lasix 40 mg p.o. daily. 10.Cardizem CD 240 mg p.o. daily. 11.Levaquin 750 mg q.48 hours 3 tablets. 12.Prednisone short taper. Follow up with Dr. Self on 05/04/2018. Follow up with Dr. Alfred on 04/27/2018. Follow up with Dr. Moore in 1 week. [facility] to continue. MMODL / IJN: [id number] /
== END 2018-04-21 18:57 | disposition home health service (06) | DRG 291 ==
LOC: EC 13:58 → 3NMEDONC 17:34 → OBSVTOIN 04-18 12:56 → 3SCARD 04-18 13:30
PROVIDERS: ADMIT Hospitalist; ATTEND Hospitalist
DX: I11.0 Hypertensive heart disease with heart failure (principal); J18.9 Pneumonia, unspecified organism; E66.2 Morbid (severe) obesity with alveolar hypoventilation; I47.1 Supraventricular tachycardia; Z68.42 Body mass index [BMI] 45.0-49.9, adult; I50.33 Acute on chronic diastolic (congestive) heart failure; E03.9 Hypothyroidism, unspecified; G25.81 Restless legs syndrome; G89.29 Other chronic pain; I44.0 Atrioventricular block, first degree; I48.0 Paroxysmal atrial fibrillation; M19.91 Primary osteoarthritis, unspecified site; M47.9 Spondylosis, unspecified; Z79.890 Hormone replacement therapy; Z79.899 Other long term (current) drug therapy; Z82.49 Family history of ischemic heart disease and other diseases of the circulatory system; Z83.3 Family history of diabetes mellitus; Z87.01 Personal history of pneumonia (recurrent); Z88.8 Allergy status to other drugs, medicaments and biological substances; Z90.49 Acquired absence of other specified parts of digestive tract; Z98.49 Cataract extraction status, unspecified eye; Z60.2 Problems related to living alone
CPT/HCPCS: 36415; 71046; 78582; 80048; 80053; 82550; 82553; 83735; 83880; 84443; 84484; 85025; 85610; 85730; 93005; 93306; 94640; 94760; 96374; 99285

== ENCOUNTER → 2018-04-16 | Outpatient (CLI) | payer MEDICARE ==
--- NOTE | 2018-04-17 14:26 | ECHOF ---
Referral Reason:R60.9 edema, unspecified MEASUREMENTS -------- HEIGHT: 157.5 cm WEIGHT: 109.8 kg BP: RVIDd: 3.7 cm (< 3.3) IVSd: 1.0 cm (0.6 - 1.1) LVIDd: 4.5 cm (3.9 - 5.3) LVPWd: 1.2 cm (0.6 - 1.1) IVSs: 1.4 cm LVIDs: 3.5 cm LVPWs: 1.6 cm LA Diam: 4.0 cm (2.7 - 3.8) MV EXCURSION: 18.048 mm (> 18.000) MV EF SLOPE: 95 mm/s (70 - 150) EPSS: 0.4 cm MV E Christiano: 0.74 m/s MV DecT: 238 ms MV A Christiano: 0.91 m/s MV E/A Ratio: 0.81 RAP: 5.00 mmHg RVSP: 17.89 mmHg FINDINGS -------- Sinus rhythm. This was a technically adequate study. The left ventricular size is normal. There is borderline concentric left ventricular hypertrophy. Overall left ventricular systolic function is low-normal with, an EF between 50 - 55 %. The right ventricle is mildly enlarged. The left atrial size is normal. The right atrial size is normal. The aortic valve is trileaflet, and appears structurally normal. No aortic stenosis or regurgitation. Mild mitral annular calcification present. Mild mitral regurgitation is present. Mild tricuspid regurgitation present. There is no evidence of pulmonary hypertension. The right v entricular systolic pressure, as measured by Doppler, is 17.89mmHg. There is no pulmonic regurgitation present. The aortic root size is normal. Echo free space represents a pericardial fat pad. CONCLUSIONS -------- 1. The left ventricular size is normal. 2. There is borderline concentric left ventricular hypertrophy. 3. Overall left ventricular systolic function is low-normal with, an EF between 50 - 55 %. 4. The right ventricle is mildly enlarged. 5. The left atrial size is normal. 6. The right atrial size is normal. 7. The aortic valve is trileaflet, and appears structurally normal. No aortic stenosis or regurgitati on. 8. Mild mitral annular calcification present. 9. Mild mitral regurgitation is present. 10. Mild tricuspid regurgitation present. 11. There is no evidence of pulmonary hypertension. 12. The right ventricular systolic pressure, as measured by Doppler, is 17.89mmHg. 13. There is no pulmonic regurgitation present. 14. The aortic root size is normal. 15. Echo free space represents a pericardial fat pad. [employer] SPREADER: Alice Watkins RDCS
== END | disposition home or self-care (01) ==
LOC: RADECHMAIN 13:00
PROVIDERS: ATTEND Internal Medicine
DX: I08.1 Rheumatic disorders of both mitral and tricuspid valves (principal)
CPT/HCPCS: 93306

== ENCOUNTER → 2018-06-03 | Outpatient (CLI) | payer MEDICARE, OTHER ==
--- NOTE | 2018-06-04 08:32 | CT ---
EXAMINATION TYPE: CT chest w con DATE OF EXAM: 06/03/2018 COMPARISON: Ultrasound dated 01/25/2015 HISTORY: Hx recurrent pneumonia CT DLP: 574.80 mGycm. Automated Exposure Control for Dose Reduction was Utilized. TECHNIQUE: CT scan of the thorax is performed following with IV Contrast, patient injected with 100 mL of Isovue 300. FINDINGS: LUNGS: There is a subpleural medial right lower lobe 3 mm pulmonary nodule on series 4 image 36. Depe ndent subsegmental atelectasis is also noted. Lingular airspace disease is bandlike on coronal and sa gittal images related to scarring and/or atelectasis as is a right middle lobe opacity with a 5 mm no dular component on series 4 image 34. No focal consolidation to suggest pneumonia. There is no pleu ral effusion or pneumothorax seen. The tracheobronchial tree is patent. MEDIASTINUM: There are no greater than 1 cm hilar or mediastinal lymph nodes. No pericardial effusi on is seen. Moderate coronary artery calcifications are present. OTHER: Left lobe hepatic lesions measuring up to 3.9 cm (2 in number) appear smaller than on the prio r ultrasound of 01/25/2015 where these related to minimally complex cysts. Gallbladder surgically abs ent. Right renal cyst and bilateral lesions that are too small to accurately characterize are noted. Small hiatal hernia is seen. Mild multilevel degenerative changes of the thoracic spine are noted. Ri ght posterior subcutaneous lipomatous lesion measuring up to 7.1 cm overlies the trapezius and superi or rotator cuff musculature. IMPRESSION: 1. No current focal consolidation to suggest pneumonia. 2. Multifocal pleural parenchymal scarring may relate to sequela of prior pneumonia. 3. Subcentimeter right-sided pulmonary nodules are seen for which follow-up CT in 12 months is recomm ended given their size to determine stability.
== END | disposition home or self-care (01) ==
LOC: RADCTMAIN 15:40
PROVIDERS: ATTEND Internal Medicine
DX: Z09 Encounter for follow-up examination after completed treatment for conditions other than malignant neoplasm (principal); J94.8 Other specified pleural conditions; R91.8 Other nonspecific abnormal finding of lung field; Z87.01 Personal history of pneumonia (recurrent)
CPT/HCPCS: 82565; 84520; 71260; Q9967

== ENCOUNTER → 2018-06-09 | Outpatient (CLI) | payer MEDICARE, OTHER ==
[2018-06-09 18:38] LABS: Anion Gap 6.3 mmol/L (4.00-12.00); Calcium 9.4 mg/dL (8.7-10.3); Carbon Dioxide 28.7 mmol/L (21.6-31.8); Magnesium 2.1 mg/dL (1.5-2.4); Potassium 4.7 mmol/L (3.5-5.5)
== END ==
LOC: LABWHC1 14:38
PROVIDERS: ATTEND Nurse Practitioner Adult Health
DX: J44.9 Chronic obstructive pulmonary disease, unspecified (principal); J18.9 Pneumonia, unspecified organism; R06.02 Shortness of breath; I10 Essential (primary) hypertension
CPT/HCPCS: 36415; 80048; 82785; 83735

== ENCOUNTER → 2018-06-15 | Outpatient (CLI) | payer MEDICARE, OTHER ==
[2018-06-15 13:56] VITALS: BP 151/84; PULSE 80; RESP 16; TEMP 98
== END ==
LOC: PROCWHC3 13:13
PROVIDERS: ATTEND Internal Medicine
DX: M81.0 Age-related osteoporosis without current pathological fracture (principal)
CPT/HCPCS: 96372; J0897

== ENCOUNTER → 2018-07-22 | Outpatient (CLI) | payer MEDICARE, OTHER ==
[2018-07-22 19:55] LABS: Anion Gap 7.9 mmol/L (4.00-12.00); Calcium 8.9 mg/dL (8.7-10.3); Carbon Dioxide 28.1 mmol/L (21.6-31.8); Magnesium 2.1 mg/dL (1.5-2.4); Potassium 4.3 mmol/L (3.5-5.5)
== END | disposition home or self-care (01) ==
LOC: LABWHC1 11:15
PROVIDERS: ATTEND Internal Medicine Interventional Cardiology
DX: I10 Essential (primary) hypertension (principal)
CPT/HCPCS: 36415; 80048; 83735

== ENCOUNTER → 2018-10-27 | Outpatient (CLI) | payer MEDICARE, OTHER ==
[2018-10-27 14:40] LABS: HCT 43.8 % (34.0-46.0); HGB 14.1 gm/dL (11.4-16.0); MCH 29.1 pg (25.0-35.0); MCHC 32.1 g/dL (31.0-37.0); MCV 90.9 fL (80.0-100.0); Mean Platelet Volume 7.4; Platelet Count 279 k/uL (150-450); RBC 4.82 m/uL (3.80-5.40); RDW 13.8 % (11.5-15.5)
[2018-10-27 14:49] LABS: African American GFR (CKD) >90 (>60 ml/min/1.73 sqM); Anion Gap 7 mmol/L; Blood Urea Nitrogen 26 mg/dL (7-17); Carbon Dioxide 29 mmol/L (22-30); Chloride 106 mmol/L (98-107); Non-African American GFR(CKD) 80 (>60 ml/min/1.73 sqM); Potassium 5.1 mmol/L (3.5-5.1); Sodium 142 mmol/L (137-145)
== END | disposition home or self-care (01) ==
LOC: LABPAT 13:41
PROVIDERS: ATTEND Internal Medicine Interventional Cardiology
DX: Z01.812 Encounter for preprocedural laboratory examination (principal); R94.39 Abnormal result of other cardiovascular function study; R06.02 Shortness of breath
CPT/HCPCS: 80051; 82565; 84520; 85027

== ENCOUNTER 2018-11-08 09:42 | Day surgery (SDC) | payer MEDICARE, OTHER ==
[2018-11-03 10:34] VITALS: BMI 45.8
[~2018-11-08 09:42] MED LIST changes: +ASPIRIN 325 MG TAB PO STA; +ATORVASTATIN 80 MG TAB PO STA; -DENOSUMAB 60 MG/ML 1 ML SYRINGE SQ ONE; +NITROGLYCERIN SL TABS 0.4 MG TAB SUBLINGUAL PRN; +SODIUM CHLORIDE 0.9% 1,000 ML in EMPTY BAG 1 BAG IV ONE
[2018-11-08] MEDS ORDERED: LIDOCAINE 1% INJ 10MG/ML (20 ML MDV) ONE ×2 (10:22→11:02)
[2018-11-08] MEDS ORDERED: VERAPAMIL 2.5 MG/ML 2 ML AMP ONE (10:22)
[2018-11-08] MEDS ORDERED: MIDAZOLAM PF (FBP) 2 MG/2 ML VIAL IV ONE (10:45)
[2018-11-08] MEDS ORDERED: HEPARIN SODIUM 1,000 UN/ML (10ML VL) ONE (10:46)
[2018-11-08] MEDS: LIDOCAINE 1% INJ 10MG/ML (20 ML MDV) SQ ONE ×2 (10:46→10:49)
[2018-11-08] MEDS ORDERED: LIDOCAINE 1% INJ 10MG/ML (20 ML MDV) SQ ONE (11:04)
[2018-11-08] MEDS ORDERED: IOPAMIDOL-370 125ML BTL INJ ONE (11:04)
[2018-11-08] MEDS ORDERED: RX INFO: IV CONTRAST WAS GIVEN 1 EACH MISC MISCELLANE PRN (11:12)
[2018-11-08] MEDS ORDERED: SODIUM CHLORIDE 0.9% 1,000 ML IV SCH (11:15)
--- NOTE | 2018-11-08 11:25 | LTR ---
November 08, 2018 Re: Madisyn Germain Dear Dr. Alfred: Ms. Madisyn Groves underwent today heart catheterization and that revealed normal coronaries. I want to thank you for allowing me to participate in her care and please do not hesitate to call if you have any question or concern. Sincerely, MD SHANNON Lee / DIAN: [id number] /
--- NOTE | 2018-11-08 11:34 | CC ---
CARDIAC CATHETERIZATION REPORT DATE OF SERVICE: November 08, 2018. PERFORMING PHYSICIAN: German Self MD, b and b gang worker. PROCEDURE PERFORMED: 1. Selective right and left coronary angiogram. 2. Left heart catheterization. INDICATION: This is a pleasant 83-year-old female patient with hypertension and dyslipidemia who was experiencing symptoms of shortness of breath with exertion. She underwent a myocardial perfusion imaging stress test and that revealed an anterior ischemia. Because of that, a heart catheterization was advised. APPROACH: Right common femoral artery. COMPLICATION: None. LEVEL OF SEDATION: Moderate with sedation length of 24 minutes. PROCEDURE DESCRIPTION: After obtaining an informed consent, the patient was brought to the cardiac laborer operator. Initially I attempted accessing the right radial artery, but I was unable. Because of that, I did access the right common femoral artery using micropuncture technique, the micropuncture wire passed easily. Then I placed a 6-Nigerien sheath. I did after that selective right and left coronary angiogram using JR4 and JL4 catheters. Left heart catheterization was performed using 6-Nigerien pigtail catheter. The procedure was completed without any complication. SELECTIVE CORONARY ANGIOGRAM: 1. The right coronary artery is a large caliber vessel and it is a dominant vessel. It is angiographically normal. It bifurcates distally into PDA and PLV branches, both appear to be angiographically normal. 2. The left main is angiographically normal. It bifurcates into left circumflex and left anterior descending artery. 3. The left circumflex is a large caliber vessel. It is a nondominant vessel and appeared to be angiographically normal. In the proximal portion, it gives rise into a large OM branch which seems to be angiographically normal. 4. The LAD: The proximal LAD is normal. The mid LAD is normal as well and the LAD distally is angiographically normal. The LAD in the proximal to midportion gives rise into a large diagonal branch which has mild disease only. HEMODYNAMICS: The left ventricular end-diastolic pressure was 8 to 12 mmHg without any significant gradient across the aortic valve. CONCLUSION: 1. Mild nonobstructive coronary artery disease. 2. Normal left ventricular end-diastolic pressure. POSTPROCEDURE MANAGEMENT: 1. Maximize medical treatment. 2. Follow up with the patient. MMODL / IJN: [id number] /
[2018-11-08 12:59] VITALS: TEMP 97.8
[2018-11-08 15:53] VITALS: RESP 17
[2018-11-08 17:33] VITALS: BP 121/54; PULSE 72
== END 2018-11-08 19:23 | disposition home or self-care (01) ==
LOC: CATHCVL 09:42 → 1SOBS 12:18 → CATHCVL 19:23
PROVIDERS: ATTEND Internal Medicine Interventional Cardiology
DX: I25.110 Atherosclerotic heart disease of native coronary artery with unstable angina pectoris (principal); I11.0 Hypertensive heart disease with heart failure; I50.32 Chronic diastolic (congestive) heart failure; E78.00 Pure hypercholesterolemia, unspecified; Z82.49 Family history of ischemic heart disease and other diseases of the circulatory system; I47.1 Supraventricular tachycardia; Z79.899 Other long term (current) drug therapy
CPT/HCPCS: 93458; C1894 ×2; C1769 ×3; C1760; J2001; Q9967; J2250

== ENCOUNTER → 2018-11-12 | Outpatient (CLI) | payer MEDICARE, OTHER ==
--- NOTE | 2018-11-12 17:37 | US ---
EXAMINATION TYPE: US venous doppler duplex LE RT DATE OF EXAM: 11/12/2018 5:05 PM COMPARISON: NONE CLINICAL HISTORY: R22.41 SWELLING, MASS AND LUMP RT LOWER LIMB. SIDE PERFORMED: Right TECHNIQUE: The lower extremity deep venous system is examined utilizing real time linear array sonog dre with graded compression, doppler sonography and color-flow sonography. VESSELS IMAGED: External Iliac Vein (EIV) Common Femoral Vein Deep Femoral Vein Greater Saphenous Vein * Femoral Vein Popliteal Vein Small Saphenous Vein * Proximal Calf Veins (* superficial vessels) Morbidly obese patient with extensive edema, technically difficult study. Unable to compress upper le g. Right Leg: Appears negative for DVT. Left Leg: IMPRESSION: No evidence of deep venous thrombosis in the right leg.
== END | disposition home or self-care (01) ==
LOC: RADUSWWP 16:32
PROVIDERS: ATTEND Internal Medicine
DX: R22.41 Localized swelling, mass and lump, right lower limb (principal)

== ENCOUNTER → 2018-12-30 | Outpatient (CLI) | payer MEDICARE, OTHER ==
--- NOTE | 2019-01-01 16:49 | MR ---
EXAMINATION TYPE: MR knee RT wo con DATE OF EXAM: 12/30/2018 COMPARISON: HISTORY: Pain in right knee TECHNIQUE: Multiplanar, multisequence imaging of the right knee is performed without IV contrast. FINDINGS: The anterior and posterior cruciate ligaments are intact. There is spurring on the patella. There is increased signal on both sides of the medial joint space in the medial femoral and tibial condyles on the proton density images consistent with bone bruise. There is medial displacement of the medial me niscus with large horizontal tear of the medial meniscus. There is mild horizontal tear of the latera l meniscus. The collateral ligaments are intact. There is moderate knee joint effusion. There is no e vidence of a fracture line. There is mild lateral tibial subluxation. The collateral ligaments appear intact. There is some narrowing of the medial joint space. There is subcutaneous edema around the an terior aspect of the knee. IMPRESSION: There are tears of the medial and lateral menisci horizontally. Moderate arthritic narrowing of the m edial joint space. There is bone bruise on both sides of the medial joint space. Knee joint effusion. No evidence of ligamentous tear. No fracture line seen. Subcutaneous edema. Mild lateral tibial subluxation consistent with ligamentous laxity.
== END | disposition home or self-care (01) ==
LOC: RADMRIMAIN 12-29 08:18
PROVIDERS: ATTEND Orthopaedic Surgery
DX: S83.281A Other tear of lateral meniscus, current injury, right knee, initial encounter (principal); S83.241A Other tear of medial meniscus, current injury, right knee, initial encounter; M17.11 Unilateral primary osteoarthritis, right knee; S80.01XA Contusion of right knee, initial encounter; S83.141A Lateral subluxation of proximal end of tibia, right knee, initial encounter; X58.XXXA Exposure to other specified factors, initial encounter

== ENCOUNTER → 2019-01-28 | Outpatient (CLI) | payer MEDICARE, OTHER ==
[~2019-01-28] MED LIST changes: -ASPIRIN 325 MG TAB PO STA; -ATORVASTATIN 80 MG TAB PO STA; +DENOSUMAB 60 MG/ML 1 ML SYRINGE SQ NR; -NITROGLYCERIN SL TABS 0.4 MG TAB SUBLINGUAL PRN; -SODIUM CHLORIDE 0.9% 1,000 ML in EMPTY BAG 1 BAG IV ONE
[2019-01-28 14:22] VITALS: BP 130/74; PULSE 85; RESP 16; TEMP 97.6
== END | disposition home or self-care (01) ==
LOC: PROCWHC3 13:40
PROVIDERS: ATTEND Internal Medicine
DX: M81.0 Age-related osteoporosis without current pathological fracture (principal)
CPT/HCPCS: 96372; J0897

== ENCOUNTER 2019-02-02 09:29 | Day surgery (SDC) | payer MEDICARE, OTHER ==
[2019-01-31 10:36] VITALS: BMI 46.8
--- NOTE | 2019-02-01 12:11 | HP ---
HISTORY AND PHYSICAL REASON FOR ADMISSION: Surgery is scheduled for 02/02/2019. HISTORY OF PRESENT ILLNESS: Madisyn Groves is an 83-year-old patient seen with progressive right knee pain. We discussed treatment options with her. She elected to proceed with right knee arthroscopy. Consent was obtained. Medical clearance was provided by Dr. Kun Alfred. PAST MEDICAL HISTORY: Hypertension. PAST SURGICAL HISTORY: Cholecystectomy. DAILY MEDICATIONS: Amlodipine, carvedilol, furosemide, vitamins. ALLERGIES: NONE. SOCIAL HISTORY: She denies tobacco use. PHYSICAL EXAMINATION: Evaluation of the right knee range of motion is 0 to 130. Mild effusion. Tenderness medial joint line. Tenderness lateral joint line. Positive medial Adalid's. Positive lateral Adalid's. Ligaments are stable. Hip rotation is without pain. Distal neurovascular examination is intact. RADIOGRAPHS: Radiographs of the right knee revealed moderate osteoarthritis. An MRI of the right knee revealed medial and lateral meniscal tears. IMPRESSION: 1. Internal derangement of the right knee with medial and lateral meniscal tears. 2. Right knee osteoarthritis. 3. Hypertension. PLAN: Right knee arthroscopy with partial meniscectomy and debridement. MMODL / IJN: [id number] /
[~2019-02-02 09:29] MED LIST changes: -DENOSUMAB 60 MG/ML 1 ML SYRINGE SQ NR; +HYDROmorphone 0.5 MG/0.5 ML SYRINGE IVP PRN; +LACTATED RINGERS 1,000 ML IV SCH; +LIDOCAINE 1% 20 ML VIAL (10MG/ML) FOR IV START INTRADERMA PRN; +ONDANSETRON 4 MG/2 ML VIAL IVP ONE
[2019-02-02] MEDS ORDERED: PROPOFOL 10 MG/ML 20 ML VIAL IV ONE (10:18)
[2019-02-02] MEDS ORDERED: LIDOCAINE 1% INJ 10MG/ML (20 ML MDV) ONE (10:18)
[2019-02-02] MEDS ORDERED: fentaNYL (PF) 50 MCG/ML 2 ML AMP ONE (10:18)
[2019-02-02] MEDS ORDERED: PHENYLEPHRINE-0.9% NACL SYG 1 MG/10 ML SYRINGE ONE (10:18)
[2019-02-02] MEDS ORDERED: SUCCINYLCHOLINE CHLORIDE 100 MG/5 ML SYR IV ONE (10:18)
[2019-02-02] MEDS ORDERED: DEXAMETHASONE SOD PHOSPHATE 10 MG/ML 1 ML VIAL IV ONE (10:20)
[2019-02-02 10:23] LABS: Glucose,Whole Blood 89 mg/dL (75-99)
[2019-02-02] MEDS ORDERED: BUPIVACAINE (PF) 0.25% 30 ML VIAL INTRAARTIC ONE (10:24)
[2019-02-02 11:21] VITALS: RESP 16; TEMP 97.1
--- NOTE | 2019-02-02 11:28 | P.OP ---
Date of Procedure: 02/02/19 Preoperative Diagnosis: Internal derangement right knee Postoperative Diagnosis: 1. Tear medial meniscus right knee 2. Grade 3 chondromalacia medial femoral condyle right knee 3. Grade 4 chondromalacia lateral femoral condyle right knee 4. Reactive synovitis medial, lateral and suprapatellar compartments right knee Procedure(s) Performed: 1. Arthroscopic partial medial meniscectomy right knee 2. Arthroscopic chondroplasty medial femoral condyle right knee 3. Arthroscopic chondroplasty lateral femoral condyle right knee 4. Arthroscopic microfracture lateral femoral condyle right knee 5. Arthroscopic partial synovectomy medial, lateral and suprapatellar compartments right knee Anesthesia: BRYSONA, local Surgeon: Anand Chavez Estimated Blood Loss (ml): 5 Pathology: none sent Condition: stable Disposition: PACU Indications for Procedure: 83-year-old patient who was seen with progressive right knee pain. After treatment options were discussed with her, she elected to proceed with arthroscopy. Operative Findings: See description of procedure Description of Procedure: Patient was taken to the operative suite. Patient underwent a general anesthetic by the department of anesthesia. Patient was given preoperative antibiotics. The right lower extremity was placed in a well-padded arthroscopic leg cedeno. The right leg was prepped and draped in the normal sterile orthopedic fashion. A lateral parapatellar and suprapatellar incision was made. Trochars were inserted. Arthroscopy was initiated. Suprapatellar pouch revealed diffuse thick reactive synovitis. The patellofemoral joint appeared to articulate congruently. There was grade 3/4 chondromalacia with no osteochondral tears present. The scope was guided into the medial gutter. No loose bodies or plica were identified. The scope was then guided into the medial compartment. A medial parapatellar incision was made. Trocar inserted followed by probe. There was a complex tear involving the posterior horn and midbody medial meniscus. There were grade 3 chondromalacia changes of the medial femoral condyle with some osteochondral flap tears present. There was thick reactive synovitis anteriorly. I performed a partial medial meniscectomy getting down to stable meniscal tissue. I performed a chondroplasty of the medial femoral condyle. I performed a partial synovectomy decompressing the reactive synovitis. The residual meniscus was stable. The residual osteochondral surface was stable. There was good decompression of the synovitis. Scope and probe were then guided into the intercondylar notch. Cruciates were identified, probed and found to be stable. The scope and probe were then guided into lateral compartment. The lateral meniscus was probed and found to be stable. There was an area of grade 4 chondromalacia central weightbearing surface lateral femoral condyle. There was thick reactive synovitis anteriorly. I performed a chondroplasty of the medial femoral condyle. I performed a partial synovectomy decompressing the reactive synovitis. There was good decompression of the synovitis. There was area of exposed bone medial femoral condyle. I performed a microfracture to that area penetrating the bone with resultant bleeding at the microfracture site. The residual osteochondral surface was stable. The scope was in guided back into the suprapatellar compartment. I introduced a motorized shaver into the suprapatellar compartment. I debrided some piecemeal fragments of meniscus I encountered. I performed a partial synovectomy decompressing the reactive synovitis within the suprapatellar compartment. The shaver was removed. There was good decompression of the synovitis. Instruments were now removed from the joint. The joint was infiltrated with .25% Marcaine. Steri-Strips were applied to the portal sites. Sterile dressings were applied. The patient was placed into a WOODY hose. No tourniquet was utilized. The patient was awakened, transferred to a bed and taken to recovery stable satisfactory condition.
[2019-02-02 12:51] VITALS: BP 117/66; PULSE 75
== END 2019-02-02 13:42 | disposition home or self-care (01) ==
LOC: OR 09:29
PROVIDERS: ATTEND Orthopaedic Surgery
DX: S83.231A Complex tear of medial meniscus, current injury, right knee, initial encounter (principal); M65.861 Other synovitis and tenosynovitis, right lower leg; M94.261 Chondromalacia, right knee; M17.11 Unilateral primary osteoarthritis, right knee; I11.0 Hypertensive heart disease with heart failure; I50.9 Heart failure, unspecified; J44.9 Chronic obstructive pulmonary disease, unspecified; G47.33 Obstructive sleep apnea (adult) (pediatric); M41.9 Scoliosis, unspecified; G25.81 Restless legs syndrome; M51.16 Intervertebral disc disorders with radiculopathy, lumbar region; F40.240 Claustrophobia; I48.0 Paroxysmal atrial fibrillation; F32.9 Major depressive disorder, single episode, unspecified; K52.9 Noninfective gastroenteritis and colitis, unspecified; E66.01 Morbid (severe) obesity due to excess calories; M85.80 Other specified disorders of bone density and structure, unspecified site; M81.0 Age-related osteoporosis without current pathological fracture; M48.061 Spinal stenosis, lumbar region without neurogenic claudication; Z88.8 Allergy status to other drugs, medicaments and biological substances; Z79.899 Other long term (current) drug therapy; Z79.02 Long term (current) use of antithrombotics/antiplatelets; Z79.51 Long term (current) use of inhaled steroids; Z90.49 Acquired absence of other specified parts of digestive tract; Z82.49 Family history of ischemic heart disease and other diseases of the circulatory system; Z83.3 Family history of diabetes mellitus; Z83.49 Family history of other endocrine, nutritional and metabolic diseases; Z98.890 Other specified postprocedural states; Z68.42 Body mass index [BMI] 45.0-49.9, adult; Z87.19 Personal history of other diseases of the digestive system; X58.XXXA Exposure to other specified factors, initial encounter
CPT/HCPCS: 29881; 29876; 29879; J1100; J0690; J2405; J2001; J3010; J2370; J0330; J2704

== ENCOUNTER → 2019-02-23 | Outpatient (CLI) | payer MEDICARE, OTHER ==
--- NOTE | 2019-02-25 11:48 | MM ---
Reason for exam: screening (asymptomatic). Last mammogram was performed 1 year and 1 month ago. History: Patient is postmenopausal. Family history of breast cancer in aunt at age 60. Took estrogen for 2 years beginning at age 53. Physical Findings: A clinical breast exam by your physician is recommended on an annual basis and results should be correlated with mammographic findings. MG 3D Screening Mammo W/Cad Bilateral CC and MLO view(s) were taken. XCCL view(s) were taken of the left breast. Prior study comparison: February 02, 2018, bilateral MG 3d screening mammo w/cad. September 22, 2011, bilateral digital screening mammo w/CAD. There are scattered fibroglandular densities. There is no discrete abnormality. No significant changes when compared with prior studies. ASSESSMENT: Negative, BI-RAD 1 RECOMMENDATION: Routine screening mammogram of both breasts in 1 year.
== END | disposition home or self-care (01) ==
LOC: RADMAMWWP 14:16
PROVIDERS: ATTEND Internal Medicine
DX: Z12.31 Encounter for screening mammogram for malignant neoplasm of breast (principal)
CPT/HCPCS: 77063; 77067

== ENCOUNTER 2019-03-08 13:01 | Inpatient (IN) | payer MEDICARE, OTHER ==
[2019-03-08] MEDS ORDERED: SODIUM CHLORIDE 0.9% 500 ML 500 ML IV ONE (13:04)
[2019-03-08] MEDS ORDERED: DILTIAZEM DRIP BOLUS FROM BAG 1 MG SOLN IV ONE (13:04)
--- NOTE | 2019-03-08 13:09 | ED ---
General Adult HPI - General Stated complaint: Cardiac Issues Time Seen by Provider: 03/08/19 13:01 Source: RN notes reviewed, old records reviewed - History of Present Illness Initial comments: This is an 83-year-old female presents to the emergency department with a past medical history significant for chronic back pain. Patient comes in today stating that she was at the surgical center to get some pain shots in her back when he noted her to have a fast heart rate and they believe that she was in atrial fibrillation with rapid ventricular response at center the emergency department. Patient states she's been completely asymptomatic. Patient states she did start a new medication but she doesn't remember what it was. Patient denies any chest pain patient denies feeling palpitations. Patient denies any recent fever chills or cough. Patient denies any abdominal pain patient denies nausea vomiting diarrhea. Patient denies any lightheadedness or dizziness. Patient denies headache. Patient states she feels completely at her baseline. Patient is without complaint - Related Data Home Medications Medication Instructions Recorded Confirmed rOPINIRole HCL [Requip] 0.5 mg PO TID 12/25/16 03/08/19 Cholecalciferol [Vitamin D3 (25 2,000 unit PO DAILY 12/10/17 03/08/19 Mcg = 1000 Iu)] Carvedilol [Coreg] 3.125 mg PO BID 11/03/18 03/08/19 Cyanocobalamin (Vitamin B-12) 1,000 mcg PO DAILY 11/03/18 03/08/19 [Vitamin B-12] L.acidoph,Paracasei, B.lactis 1 cap PO DAILY 11/03/18 03/08/19 [Probiotic] Antidiarrhea 1 tab PO DAILY 01/31/19 03/08/19 Furosemide [Lasix] 40 mg PO BID 01/31/19 03/08/19 Multivitamins, Thera [Multivitamin 2 tab PO DAILY 01/31/19 03/08/19 (formulary)] Irbesartan [Avapro] 150 mg PO DAILY 03/08/19 03/08/19 Metolazone [Zaroxolyn] 2.5 mg PO BID 03/08/19 03/08/19 Potassium Chloride ER [K-Dur 20] 20 meq PO HS 03/08/19 03/08/19 Vitamin C/Biotin [Hair, Skin and 1 tab PO DAILY 03/08/19 03/08/19 Nails] amLODIPine BESYLATE 5 mg PO DAILY 03/08/19 03/08/19 guaiFENesin [Mucinex] 600 mg PO Q12H 03/08/19 03/08/19 Allergies Allergy/AdvReac Type Severity Reaction Status Date / Time lorazepam [From Ativan] AdvReac Unknown Verified 03/08/19 14:17 Review of Systems ROS Statement: Those systems with pertinent positive or pertinent negative responses have been documented in the HPI. ROS Other: All systems not noted in ROS Statement are negative. Past Medical History Past Medical History: Heart Failure, COPD, Hypertension, Pneumonia Additional Past Medical History / Comment(s): Previous history of pneumonia back in 2014 requiring a brief hospitalization, sciatica, RLS, hypertension. OSTEOPOROSIS. History of Any Multi-Drug Resistant Organisms: None Reported Past Surgical History: Cholecystectomy, Hernia Repair Additional Past Surgical History / Comment(s): cataract sx, surgury on veins angelica legs, epidural injections in back Past Anesthesia/Blood Transfusion Reactions: No Reported Reaction, Motion Sickness Additional Past Anesthesia/Blood Transfusion Reaction / Comment(s): motion sickness on boats. clausterphobia Additional Psychological History / Comment(s): Patient lives alone in 1 level home that has 4 porch steps(also has a ramp that used while alive). She is able to drive around and gets about the house on her own.has walker if needed. - Past Family History Sister(s) Family Medical History: Cancer Mother Family Medical History: Congestive Heart Failure (CHF), Diabetes Mellitus, Deep Vein Thrombosis (DVT), Hypertension Father Family Medical History: Congestive Heart Failure (CHF) General Exam - General Exam Comments Initial Comments: GENERAL: Patient is well-developed and well-nourished. Patient is nontoxic and well- hydrated and is in no acute distress. ENT: Neck is soft and supple. No significant lymphadenopathy is noted. Oropharynx is clear. Moist mucous membranes. Neck has full range of motion without eliciting any pain. EYES: The sclera were anicteric and conjunctiva were pink and moist. Extraocular movements were intact and pupils were equal round and reactive to light. Eyelids were unremarkable. PULMONARY: Unlabored respirations. Good breath sounds bilaterally. No audible rales rhonchi or wheezing was noted. CARDIOVASCULAR: Patient is tachycardic at about 120 beats a minute. ABDOMEN: Soft and nontender with normal bowel sounds. No palpable organomegaly was noted. There is no palpable pulsatile mass. SKIN: Skin is clear with no lesions or rashes and otherwise unremarkable. NEUROLOGIC: Patient is alert and oriented x3. Cranial nerves II through XII are grossly intact. Motor and sensory are also intact. Normal speech, volume and content. Symmetrical smile. MUSCULOSKELETAL: Normal extremities with adequate strength and full range of motion. LYMPHATICS: No significant lymphadenopathy is noted PSYCHIATRIC: Normal psychiatric evaluation. Course Vital Signs 03/08/19 03/08/19 13:03 16:19 Temperature 98.1 F Pulse Rate 123 H 75 Respiratory 18 18 Rate Blood Pressure 106/74 103/57 O2 Sat by Pulse 93 L 94 L Oximetry Medical Decision Making - Medical Decision Making EKG shows sinus tachycardia at 124 bpm NV interval is 2062RS is 102 QT interval 356 QTC is 511. Patient's EKG shows no ST segment elevation or depression. VQ scan showed intermediate probability of pulmonary and wasn't so I started the patient on high-dose upper. Spoke with Dr. fraire agreed to admit the patient admitted the patient consult nephrology for the increased level of creatinine. I wrote admitting orders. - Lab Data Result diagrams: 03/08/19 13:58 03/08/19 13:58 Lab Results 03/08/19 03/08/19 03/08/19 Range/Units 13:58 13:58 13:58 WBC 7.3 (3.8-10.6) k/uL RBC 4.66 (3.80-5.40) m/uL Hgb 13.7 (11.4-16.0) gm/dL Hct 40.7 (34.0-46.0) % MCV 87.3 (80.0-100.0) fL MCH 29.4 (25.0-35.0) pg MCHC 33.7 (31.0-37.0) g/dL RDW 13.0 (11.5-15.5) % Plt Count 268 (150-450) k/uL Neutrophils % 62 % Lymphocytes % 24 % Monocytes % 8 % Eosinophils % 3 % Basophils % 0 % Neutrophils # 4.5 (1.3-7.7) k/uL Lymphocytes # 1.7 (1.0-4.8) k/uL Monocytes # 0.6 (0-1.0) k/uL Eosinophils # 0.2 (0-0.7) k/uL Basophils # 0.0 (0-0.2) k/uL PT 10.5 (9.0-12.0) sec INR 1.0 (<1.2) APTT 23.3 (22.0-30.0) sec D-Dimer 1.12 H (<0.60) mg/L FEU Sodium 138 (137-145) mmol/L Potassium 3.4 L (3.5-5.1) mmol/L Chloride 94 L (98-107) mmol/L Carbon Dioxide 31 H (22-30) mmol/L Anion Gap 13 mmol/L BUN 68 H (7-17) mg/dL Creatinine 2.49 H (0.52-1.04) mg/dL Est GFR (CKD-EPI)AfAm 20 (>60 ml/min/1.73 sqM) Est GFR (CKD-EPI)NonAf 17 (>60 ml/min/1.73 sqM) Glucose 106 H (74-99) mg/dL Calcium 9.6 (8.4-10.2) mg/dL Magnesium 2.0 (1.6-2.3) mg/dL Total Bilirubin 1.1 (0.2-1.3) mg/dL AST 22 (14-36) U/L ALT 20 (9-52) U/L Alkaline Phosphatase 51 (38-126) U/L Troponin I (0.000-0.034) ng/mL Total Protein 6.5 (6.3-8.2) g/dL Albumin 4.1 (3.5-5.0) g/dL Urine Color Urine Appearance (Clear) Urine pH (5.0-8.0) Ur Specific [place] (1.001-1.035) Urine Protein (Negative) Urine Glucose (UA) (Negative) Urine Ketones (Negative) Urine Blood (Negative) Urine Nitrite (Negative) Urine Bilirubin (Negative) Urine Urobilinogen (<2.0) mg/dL Ur Leukocyte Esterase (Negative) Urine RBC (0-5) /hpf Urine WBC (0-5) /hpf Ur Squamous Epith Cells (0-4) /hpf Urine Bacteria (None) /hpf Hyaline Casts (0-2) /lpf Urine Mucus (None) /hpf 03/08/19 03/08/19 Range/Units 13:58 16:38 WBC (3.8-10.6) k/uL RBC (3.80-5.40) m/uL Hgb (11.4-16.0) gm/dL Hct (34.0-46.0) % MCV (80.0-100.0) fL MCH (25.0-35.0) pg MCHC (31.0-37.0) g/dL RDW (11.5-15.5) % Plt Count (150-450) k/uL Neutrophils % % Lymphocytes % % Monocytes % % Eosinophils % % Basophils % % Neutrophils # (1.3-7.7) k/uL Lymphocytes # (1.0-4.8) k/uL Monocytes # (0-1.0) k/uL Eosinophils # (0-0.7) k/uL Basophils # (0-0.2) k/uL PT (9.0-12.0) sec INR (<1.2) APTT (22.0-30.0) sec D-Dimer (<0.60) mg/L FEU Sodium (137-145) mmol/L Potassium (3.5-5.1) mmol/L Chloride (98-107) mmol/L Carbon Dioxide (22-30) mmol/L Anion Gap mmol/L BUN (7-17) mg/dL Creatinine (0.52-1.04) mg/dL Est GFR (CKD-EPI)AfAm (>60 ml/min/1.73 sqM) Est GFR (CKD-EPI)NonAf (>60 ml/min/1.73 sqM) Glucose (74-99) mg/dL Calcium (8.4-10.2) mg/dL Magnesium (1.6-2.3) mg/dL Total Bilirubin (0.2-1.3) mg/dL AST (14-36) U/L ALT (9-52) U/L Alkaline Phosphatase (38-126) U/L Troponin I <0.012 (0.000-0.034) ng/mL Total Protein (6.3-8.2) g/dL Albumin (3.5-5.0) g/dL Urine Color Yellow Urine Appearance Cloudy H (Clear) Urine pH 5.0 (5.0-8.0) Ur Specific [place] 1.014 (1.001-1.035) Urine Protein Negative (Negative) Urine Glucose (UA) Negative (Negative) Urine Ketones Negative (Negative) Urine Blood Negative (Negative) Urine Nitrite Negative (Negative) Urine Bilirubin Negative (Negative) Urine Urobilinogen <2.0 (<2.0) mg/dL Ur Leukocyte Esterase Negative (Negative) Urine RBC <1 (0-5) /hpf Urine WBC 9 H (0-5) /hpf Ur Squamous Epith Cells <1 (0-4) /hpf Urine Bacteria Occasional H (None) /hpf Hyaline Casts 7 H (0-2) /lpf Urine Mucus Rare H (None) /hpf Disposition Clinical Impression: Pulmonary embolism, Acute renal failure, Sinus tachycardia Disposition: ADMITTED IP TO THIS [facility] Referrals: Kun Alfred MD [Primary Care Provider] - 1-2 days Time of Disposition: 17:22
[2019-03-08] MEDS ORDERED: DILTIAZEM 125 MG in SODIUM CHLORIDE 0.9% 100 ML IV SCH (13:15)
[2019-03-08 14:11] LABS: Basophils % (A) 0 %; Eosinophils # (A) 0.2 k/uL (0-0.7); Eosinophils % (A) 3 %; HCT 40.7 % (34.0-46.0); HGB 13.7 gm/dL (11.4-16.0); Lymphocytes # (A) 1.7 k/uL (1.0-4.8); Lymphocytes % (A) 24 %; MCH 29.4 pg (25.0-35.0); MCHC 33.7 g/dL (31.0-37.0); MCV 87.3 fL (80.0-100.0); Mean Platelet Volume 7.9; Monocytes # (A) 0.6 k/uL (0-1.0); Monocytes % (A) 8 %; Neutrophils # (A) 4.5 k/uL (1.3-7.7); Neutrophils % (A) 62 %; Platelet Count 268 k/uL (150-450); RBC 4.66 m/uL (3.80-5.40); WBC 7.3 k/uL (3.8-10.6)
[2019-03-08 14:21] LABS: Albumin 4.1 g/dL (3.5-5.0); Calcium 9.6 mg/dL (8.4-10.2); Potassium 3.4 mmol/L (3.5-5.1); Total Bilirubin 1.1 mg/dL (0.2-1.3); Total Protein 6.5 g/dL (6.3-8.2)
[2019-03-08 14:29] LABS: Partial Thromboplastin Time 23.3 sec (22.0-30.0); Prothrombin Time 10.5 sec (9.0-12.0)
[2019-03-08 14:35] LABS: D-Dimer 1.12 mg/L FEU (<0.60)
--- NOTE | 2019-03-08 15:32 | XR ---
EXAMINATION TYPE: XR chest 2V DATE OF EXAM: 03/08/2019 COMPARISON: 04/16/2018 HISTORY: Chest pain TECHNIQUE: Frontal and lateral views of the chest are obtained. FINDINGS: There is no focal air space opacity, pleural effusion, or pneumothorax seen. On subcentim eter pulmonary nodules seen on the prior CT of 06/03/2018 are not seen on x-ray. The cardiac silhouette size is upper limits of normal. The osseous structures are intact. IMPRESSION: No acute cardiopulmonary process. Known pulmonary nodule seen on the prior CT are not se en on x-ray and should be followed with in May 2019.
--- NOTE | 2019-03-08 16:22 | NM ---
EXAMINATION TYPE: NM pul vent and perfuse DATE OF EXAM: 03/08/2019 COMPARISON: 04/17/2018 HISTORY: Tachycardia and elevated d-dimer TECHNIQUE: Utilizing inhalation of 70.2 mCi Tc 99m DTPA aerosol and intravenous injection of 5.05 mC i of Tc 99m MAA, ventilation and perfusion images are acquired post injection in multiple projections . FINDINGS: There is a small wedge-shaped defect on perfusion of the anterior right lower lobe that is a mismatch defect not seen on ventilation. Matched defect is seen of the posterior left lower lobe in the super ior segment and lateral left lower lobe. IMPRESSION: Although findings are technically intermediate probability for pulmonary embolus increased suspicion is raised for embolus as there is a perfusion defect without ventilation on the right defect and bila teral findings are located in the lower lobes.
[2019-03-08 16:56] LABS: Bacteria,Urine Occasional /hpf; Hyaline Casts,Urine 7 /lpf (0-2); Mucus,Urine Rare /hpf; RBC,Urine <1 /hpf (0-5); Squamous Epithelial Cell,Urine <1 /hpf (0-4); WBC,Urine 9 /hpf (0-5)
[2019-03-08 17:05] LABS: Appearance,Urine Cloudy (Clear); Bilirubin,Urine Negative (Negative); Blood,Urine Negative (Negative); Color,Urine Yellow; Glucose,Urine (UA) Negative (Negative); Ketones,Urine Negative (Negative); Leukocyte Esterase,Urine Negative (Negative); Nitrite,Urine Negative (Negative); Protein,Urine Negative (Negative); Specific Gravity,Urine 1.014 (1.001-1.035); Urobilinogen,Urine <2.0 mg/dL (<2.0)
[2019-03-08] MEDS ORDERED: HEPARIN SODIUM,PORCINE 10,000 UNIT/ML 1 ML VIAL IV ONE (17:16)
[2019-03-08] MEDS: HEPARIN SOD,PORK IN 0.45% NACL 25,000 UNIT in 0.45% NACL 1 250ML.BAG IV SCH (18:03)
--- NOTE | 2019-03-08 19:16 | US ---
EXAMINATION TYPE: US venous doppler duplex LE RT DATE OF EXAM: 03/08/2019 7:08 PM COMPARISON: US 2019 CLINICAL HISTORY: Swollen right leg . Minimal swelling x years before knee surgery on 02/02/2019. Swe lling worsened after surgery. No hx of DVT. Patient does not take any blood thinners. SIDE PERFORMED: Right TECHNIQUE: The lower extremity deep venous system is examined utilizing real time linear array sonog dre with graded compression, doppler sonography and color-flow sonography. VESSELS IMAGED: External Iliac Vein (EIV) Common Femoral Vein Deep Femoral Vein Greater Saphenous Vein * Femoral Vein Popliteal Vein Small Saphenous Vein * Proximal Calf Veins (* superficial vessels) FINDINGS: Exam is limited due to patient's inability to tolerate compression of mid and distal femor al vein. Color Doppler images are shown. No evidence of DVT in veins imaged from the proximal calf ve ins to EIV. IMPRESSION: NEGATIVE FOR DVT, RIGHT LOWER EXTREMITY.
[2019-03-08] MEDS ORDERED: Potassium Replacement Protocol 1 EACH MISC MISCELLANE PRN (23:51)
[2019-03-08] MEDS: POTASSIUM CHLORIDE ER 20 MEQ TAB.ER PO SCH (23:58)
[2019-03-08] MEDS: CARVEDILOL 3.125 MG TAB PO SCH (23:58)
[2019-03-08] MEDS: guaiFENesin 600 MG TABLET.ER PO SCH (23:58)
[2019-03-09] MEDS: POTASSIUM CHLORIDE ER 20 MEQ TAB.ER PO SCH (01:11)
[2019-03-09 06:04] LABS: Basophils % (A) 1 %; Eosinophils # (A) 0.3 k/uL (0-0.7); Eosinophils % (A) 5 %; HCT 44.6 % (34.0-46.0); HGB 14.3 gm/dL (11.4-16.0); Lymphocytes # (A) 2.3 k/uL (1.0-4.8); Lymphocytes % (A) 33 %; MCH 28.3 pg (25.0-35.0); MCHC 32.1 g/dL (31.0-37.0); MCV 88.2 fL (80.0-100.0); Mean Platelet Volume 7.7; Monocytes # (A) 0.6 k/uL (0-1.0); Monocytes % (A) 9 %; Neutrophils # (A) 3.6 k/uL (1.3-7.7); Neutrophils % (A) 51 %; Platelet Count 258 k/uL (150-450); RBC 5.06 m/uL (3.80-5.40); WBC 7.1 k/uL (3.8-10.6)
[2019-03-09] MEDS: CARVEDILOL 3.125 MG TAB PO SCH ×2 (06:29→17:05)
[2019-03-09] MEDS: amLODIPine 5 MG TAB PO SCH (08:00)
[2019-03-09] MEDS: HEPARIN SOD,PORK IN 0.45% NACL 25,000 UNIT in 0.45% NACL 1 250ML.BAG IV SCH (08:00)
[2019-03-09] MEDS: guaiFENesin 600 MG TABLET.ER PO SCH ×2 (08:00→23:25)
[2019-03-09] MEDS: CHOLECALCIFEROL 1,000 UNIT TAB PO SCH (08:00)
[2019-03-09 08:02] LABS: Calcium 9.9 mg/dL (8.4-10.2); Potassium 4.3 mmol/L (3.5-5.1)
[2019-03-09] MEDS ORDERED: LOSARTAN 50 MG TAB PO SCH (09:00)
[2019-03-09] MEDS ORDERED: HEPARIN SOD,PORK IN 0.45% NACL 25,000 UNIT in 0.45% NACL 1 250ML.BAG IV SCH (14:00)
--- NOTE | 2019-03-09 15:19 | CONS ---
CONSULTATION PULMONARY/CRITICAL CARE CONSULTATION DATE OF CONSULTATION: 03/09/2019 REASON FOR CONSULTATION: This is an 83-year-old female who presented to the emergency department with complaints of rapid heartbeat and palpitations. She apparently went for some injections in her back at a surgical center, but because she was tachycardic and short of breath, they refused to do the procedure and then sent her into the hospital to be evaluated. She was thought to have atrial fibrillation. The patient had some knee surgery done in January. She had a meniscus repair done by Dr. Chavez. She has been very inactive since that time. She also complains of increasing shortness of breath and chest congestion as well as the tachycardia and rapid heartbeat. She denies any fever or chills. She denies any nausea, vomiting, or diarrhea. She really denies any chest pain per se. It is mostly shortness of breath and rapid heartbeat. The patient was evaluated in the emergency room and had a ventilation perfusion lung scan that was possibly suggestive of pulmonary embolism. We are consulted for that reason. The patient had recent surgery. She has been sedentary. In addition, she has been more short of breath than usual and developed a rapid heartbeat and palpitations with fluttering. In addition, her D-dimer was elevated. She could not have a CT angiogram because her renal function was off. I think for all the reasons mentioned above, it is likely that she did have a pulmonary embolism. She did have a Doppler of the right lower extremity because of swelling and that was negative. Currently she is feeling well. Her insurance was run to see whether or not she would qualify for one of the factor Xa inhibitors and she does. CURRENT MEDICATIONS: Current home medications include Requip, Vitamin D3, Coreg, Vitamin B12, probiotics, Lasix, multiple vitamins, Avapro, Zaroxolyn, potassium, vitamins, amlodipine, Mucinex. ALLERGIES: ATIVAN. PAST MEDICAL HISTORY: Medical history includes heart failure, hypertension, and pneumonia. She also has a previous episode of pneumonia, restless leg syndrome, sciatica, and osteoporosis. PAST SURGICAL HISTORY: Surgical history includes cholecystectomy, hernia repair, epidural injections in her back, bilateral vein surgery, and cataract surgery. SOCIAL HISTORY: Social history is negative for tobacco use. She denies any alcohol use or illicit drug use. FAMILY HISTORY: Family history is positive for a sister with cancer, a mother with heart failure, diabetes, and deep venous thrombosis, as well as hypertension, and a father with congestive heart failure. She was recently seen by my partner for lower extremity edema. She was prescribed Lasix and Zaroxolyn. She has diuresed quite a bit and the patient has noted that her leg swelling has improved dramatically. REVIEW OF SYSTEMS: CONSTITUTIONAL: Weakness, just not feeling right. NEUROLOGIC: Negative. HEENT: Negative. CARDIOVASCULAR: Tachycardia/palpitations, fluttering. PULMONARY: Shortness of breath, fatigue. GASTROINTESTINAL: Negative. GENITOURINARY: Negative. RHEUMATOLOGIC: Negative. IMMUNOLOGIC: Negative. ENDOCRINOLOGIC: Negative. DERMATOLOGIC: Negative. PHYSICAL EXAMINATION: VITAL SIGNS: Current vital signs are reviewed. Temperature is 97.6, heart rate 72, respiratory rate 18, blood pressure 125/58, mean 80, room air saturation 95%. GENERAL: Appears in no acute distress. There is no audible wheezing, conversational dyspnea, or use of accessory muscles. HEENT: Examination is grossly unremarkable. Mucous membranes are moist. No oral lesions. NECK: Supple. Full range of motion. No adenopathy, thyromegaly, or neck vein distention. CARDIOVASCULAR: Examination reveals regular rhythm and rate. Heart rate is about 80 beats per minute. S1 and S2 normal. No distinct murmur. Heart sounds are distant. LUNGS: Lungs reveal mostly clear breath sounds. No wheezes, rhonchi, or crackles. ABDOMEN: Abdomen is obese. Bowel sounds are heard. EXTREMITIES: Extremities are intact. Minimal edema. The edema is worse in the right lower extremity compared to the left lower extremity. SKIN: Skin without rash. NEUROLOGIC: Examination brief but nonfocal. LABORATORY DATA: Laboratory data is reviewed. White count 7.1, hemoglobin 14.3, hematocrit 44.6, platelet count 258,000. PTT is greater than 200, because she is on intravenous heparin. D-dimer is 1.12. Sodium 140, potassium 4.3, chloride 98, CO2 31, BUN and creatinine were 68 and 1.61 compared to 68 and 2.49 yesterday. The patient's troponins were negative. Urine was essentially negative. Doppler of the right lower extremity was negative for deep venous thrombosis. EKG showed tachycardia. The quality of the EKG is not great but I think this is sinus tachycardia. She had a ventilation perfusion lung scan which suggested that it was intermediate in probability but there was suspicion raised for pulmonary embolism as there was a perfusion defect without correlating ventilation abnormality in the right lower lobe. There were also additional findings in the left lower lobe. Pulmonary embolism was suspected by the radiologist. Medications are reviewed. The patient is currently on amlodipine, Coreg, Vitamin D3, Cardizem drip which was discontinued, Mucinex, intravenous heparin, which was discontinued in favor of Xarelto, losartan, potassium chloride, Requip, and saline intravenously. ASSESSMENT: 1. Probable pulmonary embolism based on her symptoms, her recent sedentary lifestyle following a knee surgery, elevated D-dimer, shortness of breath, and palpitations. 2. Recent diagnosis of severe sleep apnea syndrome, currently on CPAP. 3. No history of intrinsic pulmonary disease. 4. No evidence of right lower extremity deep venous thrombosis. 5. History of heart failure. 6. History of hypertension. 7. Prior history of pneumonia. 8. History of sciatica. 9. Restless leg syndrome. 10.History of bone osteoporosis. 11.Chronic back pain, requiring epidural injections. PLAN: The patient should be treated for three months. She likely has a provoked pulmonary embolism given her recent knee surgery and her sedentary lifestyle after the knee surgery. Intravenous heparin can be discontinued. Her insurance approved Xarelto. The Xarelto should be 15 mg twice a day for 21 days and then on day 22, 20 mg a day. She is to continue on Xarelto for a total of three months. Additional recommendations and suggestions are forthcoming. I should see Madisyn in the office in follow up. No additional recommendations are made. If her renal function improves, she could have a CT angiogram for confirmation. Diuretics were placed on hold by Nephrology. MMODL / IJN: [id number] /
[2019-03-09] MEDS: RIVAROXABAN 15 MG TAB PO SCH (17:05)
--- NOTE | 2019-03-09 17:49 | CONS ---
CONSULTATION REASON FOR CONSULT: Renal failure. HISTORY OF PRESENT ILLNESS: Patient is an 83-year-old female who was admitted to the hospital yesterday. Patient was having spinal injections and was noticed to have a fast heart rate. She was in atrial fibrillation with RVR and was sent over to the emergency room. Patient has been complaining of pain in her right leg. She did have Dopplers done and they were negative for DVT. Patient is status post right knee arthroplasty earlier in January on 02/02/2019. Blood pressure was not significantly low; however, we do have two systolic readings of 92 and 93 mmHg. Patient denies use of any nonsteroidal anti- inflammatory agents. She was maintained on Avapro and Lasix prior to admission. Serum creatinine was 2.49 yesterday. Today it is down to 1.6. Patient was given IV fluids initially. Currently she is not on any IV fluids. Patient had a V/Q scan to rule out PE and that showed some degree of perfusion defect. Chest x-ray shows no acute process. Patient denies use of any nonsteroidal anti-inflammatory agents. PAST MEDICAL HISTORY: 1. Osteoarthritis. 2. Hypertension. 3. COPD. 4. History of pneumonia. 5. Osteoporosis. PAST SURGICAL HISTORY: 1. Cholecystectomy. 2. Cataract surgery. 3. Venous surgery, bilateral lower extremities. 4. Epidural injections. 5. Hernia repair. SOCIAL HISTORY: Negative for smoking, drug abuse or alcohol abuse. MEDICATIONS: Medications prior to admission included amlodipine, potassium, metolazone, Avapro, multivitamins, Lasix, probiotics, Coreg, vitamin B12, Requip, vitamin D3. ALLERGIES: ALLERGIES include ATIVAN. REVIEW OF SYSTEMS: As per HPI. Other systems negative. PHYSICAL EXAMINATION: Patient is currently comfortable, awake, not in any acute distress. Blood pressure was 128/60, heart rate 72 per minute. She is afebrile. EXAMINATION OF THE HEART: S1 and S2. EXAMINATION OF LUNGS: Bilateral breath sounds are heard. ABDOMEN: Soft, non-tender. Examination of lower extremities shows no significant edema. [employer] exam is grossly intact. LABS: Sodium 140, potassium 4.3, chloride 98. CO2 is 31, BUN 68, creatinine 1.6, hemoglobin 14.3. UA shows no significant RBCs. No proteinuria or hematuria. ASSESSMENT: 1. Acute kidney injury, mostly secondary to hypotension and hypoperfusion, currently improving. Patient remains on Cozaar, which I will continue but decrease the dose, as blood pressure is on the lower side. Patient is currently not on any IV fluids. We can continue to encourage increased oral intake as long as renal function continues to improve. Previous creatinine was 0.69 on 10/27/2018. 2. Atrial fibrillation with rapid ventricular response. Currently heart rate is down. Patient is maintained on Xarelto. She is on Coreg. 3. Hypertension; decreased dose of Cozaar. PLAN: Decrease Cozaar dose. Repeat labs in a.m. Encourage increased oral intake. Thank you for this consultation. Will continue to follow the patient with you during her hospitalization. MMODL / IJN: [id number] /
[2019-03-09] MEDS ORDERED: POTASSIUM CHLORIDE ER 20 MEQ TAB.ER PO SCH (21:00)
--- NOTE | 2019-03-09 22:28 | P.HPIM ---
History of Present Illness H&P Date: 03/09/19 Chief Complaint: Heart racing History of presenting complaint: This is a very pleasant 83-year-old patient of Dr. Kun Muller. Chronic stable medical conditions include obesity, obesity hypoventilation syndrome, osteoarthritis of the spine, essential hypertension, restless leg syndrome, congestive heart failure from diastolic dysfunction, history of paroxysmal self-limiting supraventricular tachycardia. Patient is going to see Dr. [facility] from [facility] to get her steroid injections spine. There are heart rate was noted to be rapid and she was sent out of the ER. It was initially felt to be atrial fibrillation. And felt to be sinus tachycardia. Patient had a similar presentation on March of this year. Found to be SVT. Patient also found to be in renal failure with a creatinine of 2.49. In March of this year creatinine was 0.85. Also patient seen her family doctor and patient has been on diuretics. Since patient has been taking some extra pills inadvertently. Review of systems: GEN.: Tired EYES: None HEENT: None NECK: None RESPIRATORY: Some shortness of breath CARDIOVASCULAR: None GASTROINTESTINAL: None GENITOURINARY: None MUSCULOSKELETAL: Joint pains LYMPHATICS: None HEMATOLOGICAL: None PSYCHIATRY: None NEUROLOGICAL: None Social history: Lives alone. Does use a walker. No history of smoking alcohol Family history: Congestive heart failure, diabetes, hypertension Physical examination: VITAL SIGNS: 98.1, 123, 18, 106/74, 93% on 2 L GENERAL: BMI 45.7, laying in bed slightly tired. EYES: Pupils equal. Conjunctiva normal. HEENT: External appearance of nose and ears normal, oral cavity grossly normal. NECK: JVD not raised; masses not palpable. HEART: First and second heart sounds are normal; no edema. LUNGS: Respiratory rate normal; clear to auscultation. ABDOMEN: Soft, nontender, liver spleen not palpable, no masses palpable. PSYCH: Alert and oriented x3; mood and affect normal. NEUROLOGICAL: Cranial nerves grossly intact; no facial asymmetry, power and sensation grossly intact. LYMPHATICS: No lymph nodes palpable in the axilla and neck MUSCULAR skeletal: Evidence of OA especially in the hands INVESTIGATIONS, reviewed in the clinical context: White count 7.3 hemoglobin 13.7 potassium 3.4 bun 68 creatinine 2.49 Patient's creatinine in September this year was 0.69 Chest x-ray film reports no acute EKG tracing personally seen by me shows possible sinus tachycardia but there may be underlying reentrant tachycardia Doppler ultrasound lower extremity-negative for DVT VQ scan-intermediate probability Assessment: -Probable pulmonary embolism in a patient is relatively sedentary with recent knee surgery. -Severe sleep apnea syndrome on CPAP -Acute renal failure likely prerenal from recent aggressive use of diuretics -Morbid obesity BMI 45.7 -Obesity hypoventilation syndrome -Primary or strength redness of the spine -Essential hypertension -Associated syndrome -Chronic congestive heart failure from diastolic dysfunction EF at 4-60% -Probable sinus tachycardia at, cannot rule out reentrant tachycardia Plan: Patient was initially treated with Lovenox. Seen by pulmonary earlier today. Started on Xarelto. We'll gently hydrate the patient overnight. Expect renal function to improve. Consultations made to nephrology, pulmonary. We'll get a cardiology opinion because of the EKG. Earlier care was discussed with family the bedside. Past Medical History Past Medical History: Heart Failure, COPD, Hypertension, Pneumonia Additional Past Medical History / Comment(s): Previous history of pneumonia back in 2014 requiring a brief hospitalization, sciatica, RLS, hypertension. OSTEOPOROSIS. History of Any Multi-Drug Resistant Organisms: None Reported Past Surgical History: Cholecystectomy, Hernia Repair, Joint Replacement Additional Past Surgical History / Comment(s): cataract sx, surgury on veins angelica legs, epidural injections in back, meniscis repair right knee in 01/2019 Past Anesthesia/Blood Transfusion Reactions: No Reported Reaction, Motion Sickness Additional Past Anesthesia/Blood Transfusion Reaction / Comment(s): motion sickness on boats. clausterphobia Past Psychological History: No Psychological Hx Reported Additional Psychological History / Comment(s): Patient lives alone in 1 level home that has 4 porch steps(also has a ramp that used while alive). She is able to drive around and gets about the house on her own.has walker if needed. Smoking Status: Never smoker Past Alcohol Use History: None Reported Past Drug Use History: None Reported - Past Family History Sister(s) Family Medical History: Cancer Mother Family Medical History: Congestive Heart Failure (CHF), Diabetes Mellitus, Deep Vein Thrombosis (DVT), Hypertension Father Family Medical History: Congestive Heart Failure (CHF) Medications and Allergies Home Medications Medication Instructions Recorded Confirmed Type rOPINIRole HCL [Requip] 0.5 mg PO TID 12/25/16 03/08/19 History Cholecalciferol [Vitamin D3 (25 2,000 unit PO DAILY 12/10/17 03/08/19 History Mcg = 1000 Iu)] Carvedilol [Coreg] 3.125 mg PO BID 11/03/18 03/08/19 History Cyanocobalamin (Vitamin B-12) 1,000 mcg PO DAILY 11/03/18 03/08/19 History [Vitamin B-12] L.acidoph,Paracasei, B.lactis 1 cap PO DAILY 11/03/18 03/08/19 History [Probiotic] Antidiarrhea 1 tab PO DAILY 01/31/19 03/08/19 History Furosemide [Lasix] 40 mg PO BID 01/31/19 03/08/19 History Multivitamins, Thera [Multivitamin 2 tab PO DAILY 01/31/19 03/08/19 History (formulary)] Irbesartan [Avapro] 150 mg PO DAILY 03/08/19 03/08/19 History Metolazone [Zaroxolyn] 2.5 mg PO BID 03/08/19 03/08/19 History Potassium Chloride ER [K-Dur 20] 20 meq PO HS 03/08/19 03/08/19 History Vitamin C/Biotin [Hair, Skin and 1 tab PO DAILY 03/08/19 03/08/19 History Nails] amLODIPine BESYLATE 5 mg PO DAILY 03/08/19 03/08/19 History guaiFENesin [Mucinex] 600 mg PO Q12H 03/08/19 03/08/19 History Rivaroxaban [Xarelto Starter Pack] 0 mg PO DIRECTED 30 Days #1 pack 03/09/19 Rx Allergies Allergy/AdvReac Type Severity Reaction Status Date / Time lorazepam [From Ativan] AdvReac Unknown Verified 03/08/19 14:17 Physical Exam Vitals: Vital Signs Temp Pulse Pulse Resp BP BP Pulse Ox 03/09/19 04:00 98.3 F 66 17 116/59 94 L 03/09/19 00:00 111 H 18 145/68 89 L 03/08/19 21:58 98.8 F 117 H 18 121/65 92 L 03/08/19 21:33 97.9 F 74 16 100/55 94 L 03/08/19 17:30 78 17 93/59 95 12/10/19 16:41 81 18 92/57 94 L 03/08/19 16:19 75 18 103/57 94 L 03/08/19 13:03 98.1 F 123 H 18 106/74 93 L Intake and Output 03/08/19 03/09/19 03/09/19 22:59 06:59 14:59 Intake Total 205.511 180 Output Total 1000 Balance -794.489 180 Intake: Intake, IV Titration 205.511 0 Amount Heparin Sod,Pork in 0.45% 205.511 0 NaCl 25,000 unit In 0.45 % NaCl 1 250ml.bag @ 18 UNITS/KG/HR 19.024 mls/hr IV .[id number] [facility] Rx#: [id number] Oral 180 Output: Urine 1000 Straight 1000 Other: Voiding Method Bedpan Diaper Incontinent # Voids 0 # Bowel Movements 1 Weight 106 kg 106.2 kg Results CBC & Chem 7: 03/09/19 05:25 03/09/19 05:25 Labs: Abnormal Lab Results - Last 24 Hours (Table) 03/08/19 03/08/19 03/08/19 Range/Units 13:58 13:58 16:38 APTT (22.0-30.0) sec D-Dimer 1.12 H (<0.60) mg/L FEU Potassium 3.4 L (3.5-5.1) mmol/L Chloride 94 L (98-107) mmol/L Carbon Dioxide 31 H (22-30) mmol/L BUN 68 H (7-17) mg/dL Creatinine 2.49 H (0.52-1.04) mg/dL Glucose 106 H (74-99) mg/dL Urine Appearance Cloudy H (Clear) Urine WBC 9 H (0-5) /hpf Urine Bacteria Occasional H (None) /hpf Hyaline Casts 7 H (0-2) /lpf Urine Mucus Rare H (None) /hpf 03/08/19 03/09/19 03/09/19 Range/Units 23:48 05:25 05:25 APTT >200.0 H* 109.6 H* (22.0-30.0) sec D-Dimer (<0.60) mg/L FEU Potassium (3.5-5.1) mmol/L Chloride (98-107) mmol/L Carbon Dioxide 31 H (22-30) mmol/L BUN 68 H (7-17) mg/dL Creatinine 1.61 H (0.52-1.04) mg/dL Glucose 103 H (74-99) mg/dL Urine Appearance (Clear) Urine WBC (0-5) /hpf Urine Bacteria (None) /hpf Hyaline Casts (0-2) /lpf Urine Mucus (None) /hpf Thrombosis Risk Factor Assmnt - Choose All That Apply Any of the Below Risk Factors Present?: Yes Each Factor Represents 1 point: Obesity (BMI >25), Swollen legs (current) Each Risk Factor Represents 3 Points: Age 75 years or older Other congenital or acquired thrombophilia - If yes, enter type in comment: No Thrombosis Risk Factor Assessment Total Risk Factor Score: 5 Thrombosis Risk Factor Assessment Level: High Risk
[2019-03-09] MEDS ORDERED: SODIUM CHLORIDE 0.9% 1,000 ML IV SCH (22:30)
[2019-03-09 22:31] VITALS: RESP 18
[2019-03-10] MEDS: RIVAROXABAN 15 MG TAB PO SCH (06:22)
[2019-03-10] MEDS: CARVEDILOL 3.125 MG TAB PO SCH (06:22)
[2019-03-10 07:30] LABS: Calcium 9.9 mg/dL (8.4-10.2); Potassium 3.7 mmol/L (3.5-5.1)
[2019-03-10] MEDS: amLODIPine 5 MG TAB PO SCH (08:58)
[2019-03-10] MEDS: CHOLECALCIFEROL 1,000 UNIT TAB PO SCH (08:58)
[2019-03-10] MEDS ORDERED: LOSARTAN 25 MG TAB PO SCH (09:00)
[2019-03-10 09:06] VITALS: TEMP 97.5
--- NOTE | 2019-03-10 09:11 | P.CRDCN ---
History of Present Illness Consult date: 03/10/19 Requesting physician: Lance Mitchell Reason for Consult (text): Sinus tachycardia History of present illness: This is an 83-year-old female who follows with Dr. Garcia in the office. She has a history of hypertension, family history of premature coronary artery disease, history of an episode of PAT, she underwent a Lexiscan which revealed reversible ischemia and subsequently underwent a cardiac catheterizat ion in October of this year which revealed mild nonobstructive coronary artery disease with normal left ventricular systolic function. In January of this year patient underwent arthroscopic meniscectomy of the right knee, arthroscopic chondroplasty of the medial lateral for Anupama condyle of the right knee and arthroscopic partial synovectomy of the medial lateral and suprapatellar compartments of the right knee. She was at [facility], waiting to receive a pain injection from Dr. Young, it was noticed that her heart rate was up in the 1:30 range and for this reason the procedure was not performed and patient was advised to come to the hospital, ambulance was called and she was b rought here to the emergency room. Patient denies feeling her heart racing fast, she did state she had some mild shortness of breath and has recently followed with pulmonary in the office. Chest x-ray on presentation here did not show any acute cardiopulmonary process, there is a known pulmonary nodule seen on the prior CT. VQ scan was performed, although findings were technically difficult, intermediate probability for pulmonary embolism was suggested, there was a perfusion defect without ventilation on the right. Her EKG on presentation here showed a sinus tachycardia. Ultrasound of the bilateral lower extremities was limited due to the patient's inability to tolerate compression of the mid and distal [place] pain, it was however negative for DVT in the right lower extremity. Blood pressure 132/70, heart rate in the 70s, 95% on room air. White blood cell count 7.1, hemoglobin 14.3, platelet count 258. D-dimer 1.12, sodium 139, potassium 3.7, BUN on admission was 68 with a creatinine at 2.4, this morning 57 and 0.9. Initial troponin was negative. At the time of my examination this morning, patient feels well, she has no complaints. Her breathing is stable, denies palpitations. Past Medical History Past Medical History: Heart Failure, COPD, Hypertension, Pneumonia Additional Past Medical History / Comment(s): Previous history of pneumonia back in 2014 requiring a brief hospitalization, sciatica, RLS, hypertension. OSTEOPOROSIS. History of Any Multi-Drug Resistant Organisms: None Reported Past Surgical History: Cholecystectomy, Hernia Repair, Joint Replacement Additional Past Surgical History / Comment(s): cataract sx, surgury on veins angelica legs, epidural injections in back, meniscis repair right knee in 01/2019 Past Anesthesia/Blood Transfusion Reactions: No Reported Reaction, Motion Sickness Additional Past Anesthesia/Blood Transfusion Reaction / Comment(s): motion si ckness on boats. clausterphobia Past Psychological History: No Psychological Hx Reported Additional Psychological History / Comment(s): Patient lives alone in 1 level home that has 4 porch steps(also has a ramp that used while alive). She is able to drive around and gets about the house on her own.has walker if needed. Smoking Status: Never smoker Past Alcohol Use History: None Reported Past Drug Use History: None Reported - Past Family History Sister(s) Family Medical History: Cancer Mother Family Medical History: Congestive Heart Failure (CHF), Diabetes Mellitus, Deep Vein Thrombosis (DVT), Hypertension Father Family Medical History: Congestive Heart Failure (CHF) Medications and Allergies Home Medications Medication Instructions Recorded Confirmed Type Cholecalciferol [Vitamin D3 (25 2,000 unit PO DAILY 12/10/17 03/08/19 History Mcg = 1000 Iu)] Carvedilol [Coreg] 3.125 mg PO BID 11/03/18 03/08/19 History Cyanocobalamin (Vitamin B-12) 1,000 mcg PO DAILY 11/03/18 03/08/19 History [Vitamin B-12] L.acidoph,Paracasei, B.lactis 1 cap PO DAILY 11/03/18 03/08/19 History [Probiotic] Antidiarrhea 1 tab PO DAILY 01/31/19 03/08/19 History Furosemide [Lasix] 40 mg PO BID 01/31/19 03/08/19 History Multivitamins, Thera [Multivitamin 2 tab PO DAILY 01/31/19 03/08/19 History (formulary)] Irbesartan [Avapro] 150 mg PO DAILY 03/08/19 03/08/19 History Metolazone [Zaroxolyn] 2.5 mg PO BID 03/08/19 03/08/19 History Potassium Chloride ER [K-Dur 20] 20 meq PO HS 03/08/19 03/08/19 History Vitamin C/Biotin [Hair, Skin and 1 tab PO DAILY 03/08/19 03/08/19 History Nails] amLODIPine BESYLATE 5 mg PO DAILY 03/08/19 03/08/19 History guaiFENesin [Mucinex] 600 mg PO Q12H 03/08/19 03/08/19 History Rivaroxaban [Xarelto Starter Pack] 0 mg PO DIRECTED 30 Days #1 pack 03/09/19 Rx rOPINIRole HCL [Requip] 1 tab PO TID BETWEEN MEALS 03/10/19 03/10/19 History Allergies Allergy/AdvReac Type Severity Reaction Status Date / Time lorazepam [From Ativan] AdvReac Unknown Verified 03/08/19 14:17 Physical Exam Vitals: Vital Signs Temp Pulse Resp BP Pulse Ox 03/10/19 04:00 76 18 133/72 95 03/10/19 00:00 74 18 144/78 93 L 03/09/19 20:00 98.1 F 71 18 89/50 97 03/09/19 16:00 124 H 20 106/66 93 L 03/09/19 12:00 130 H 18 125/58 94 L Intake and Output 03/09/19 03/10/19 03/10/19 22:59 06:59 14:59 Intake Total 180 Output Total 500 Balance 180 -500 Intake: Oral 180 Output: Urine 500 Other: Voiding Method Bedpan Diaper Incontinent # Voids 1 Weight 106.1 kg Assessment and plan #1 #1 probable pulmonary embolism, recent sedentary lifestyle following a recent knee surgery, elevated d-dimer, a tachycardia, VQ scan suggests intermediate probability for pulmonary embolism #2 severe sleep apnea, not able to use CPAP because of claustrophobia #3 no documented coronary artery disease, patient underwent a cardiac catheterization in October of this year which revealed mild coronary artery disease. #4 no evidence of right lower extremity DVT her limited venous duplex #5 hypertension #6 history of pneumonia #7 sciatica #8 osteoporosis #9 chronic back pain Plan We will obtain an echocardiogram with Doppler study. Patient was initially on IV heparin, she is now on Xarelto per PE protocol. We will continue to follow. DNP note has been reviewed, I agree with a documented findings and plan of care. Patient was seen and examined. Results 03/09/19 05:25 03/10/19 05:56 Coagulation 03/09/19 Range/Units 14:22 APTT 64.3 H (22.0-30.0) sec Comprehensive Metabolic Panel 03/10/19 Range/Units 05:56 Sodium 139 (137-145) mmol/L Potassium 3.7 (3.5-5.1) mmol/L Chloride 98 (98-107) mmol/L Carbon Dioxide 32 H (22-30) mmol/L BUN 57 H (7-17) mg/dL Creatinine 0.90 (0.52-1.04) mg/dL Glucose 91 (74-99) mg/dL Calcium 9.9 (8.4-10.2) mg/dL Current Medications Generic Name Dose Route Start Last Admin Trade Name Freq PRN Reason Stop Dose Admin Amlodipine Besylate 5 mg 03/09/19 09:00 03/09/19 08:00 Norvasc PO 5 mg DAILY YOEL Administration Carvedilol 3.125 mg 03/08/19 23:45 03/10/19 06:22 Coreg PO 3.125 mg BID-W/MEALS YOEL Administration Cholecalciferol 2,000 unit 03/09/19 09:00 03/09/19 08:00 Vitamin D3 (25 Mcg = 1000 Iu) PO 2,000 unit DAILY YOEL Administration Guaifenesin 600 mg 03/08/19 23:45 03/09/19 23:25 Mucinex PO Not Given Q12H YOEL Losartan Potassium 25 mg 03/10/19 09:00 Cozaar PO DAILY YOEL Miscellaneous Information 1 each 03/08/19 23:51 Potassium Per Protocol MISCELLANE DAILY PRN Per Protocol Protocol Potassium Chloride 20 meq 03/09/19 21:00 03/09/19 20:11 K-Dur 20 PO 20 meq HS YOEL Administration Rivaroxaban 15 mg 03/09/19 17:30 03/10/19 06:22 Xarelto PO 15 mg BID-W/MEALS YOEL Administration Ropinirole HCl 1 mg 03/10/19 14:00 Requip PO TID@0600,1400,2100 YOEL Intake and Output 03/09/19 03/10/19 03/10/19 22:59 06:59 14:59 Intake Total 180 Output Total 500 Balance 180 -500 Intake: Oral 180 Output: Urine 500 Other: Voiding Method Bedpan Diaper Incontinent # Voids 1 Weight 106.1 kg 03/09/19 05:25 03/10/19 05:56
[2019-03-10] MEDS ORDERED: SODIUM CHLORIDE 0.9% 1,000 ML IV SCH (09:30)
--- NOTE | 2019-03-10 10:24 | CT ---
EXAMINATION TYPE: CT angio chest DATE OF EXAM: 03/10/2019 COMPARISON: Prior CT chest 06/03/2018, chest x-ray 03/08/2019 HISTORY: rule out pe CT DLP: 720.1 mGycm Automated exposure control for dose reduction was used. CONTRAST: CTA scan of the thorax is performed with IV Contrast, patient injected with 80 mL of Isovue 370, pulm onary embolism protocol. MIP images are created and reviewed. 3D reconstructed images are created o n an independent workstation and reviewed. FINDINGS: LUNGS: The lungs are remarkable for some scattered areas of groundglass opacity There is no pleural e ffusion or pneumothorax seen. The tracheobronchial tree is patent. AORTA: Borderline aneurysmal, ascending aorta measuring approximately 4 cm on axial image #50, 4.2 c m on axial image #59, proximal descending aorta 2.8 cm, atheromatous changes are present. MEDIASTINUM: There is satisfactory enhancement of the pulmonary artery and its branches, there is no CT evidence for pulmonary embolism. There are no greater than 1 cm hilar or mediastinal lymph nodes. No pericardial effusion is seen. The heart is enlarged. OTHER: Liver shows low dense foci which are indeterminate, left lobe lesion measures 2 cm, additiona l lesion lateral segment somewhat more irregular in shape approximate 17 mm. Inferior left lobe lesio n measures 2.1 cm, these likely represent cysts. There is a hiatal hernia present. Cortical cysts ass ociated with the anterior aspect of the right kidney noted measuring 3 cm. Indeterminate sclerotic ap pearance to the L1 vertebral body to the left midline is stable and likely related to degenerative ch imani IMPRESSION: NO EVIDENT PULMONARY EMBOLISM. AORTIC ANEURYSM AND CARDIOMEGALY. PREVIOUS IDENTIFIED LUNG NODULES NOT SEEN, THERE AREAS OF GROUNDGLASS OPACITY SUGGESTING POSSIBLE ALVEOLITIS, EDEMA. HIATAL HERNIA. INDET ERMINATE LESION AND ADDITIONAL FINDINGS ABOVE.
[2019-03-10] MEDS: guaiFENesin 600 MG TABLET.ER PO SCH (11:16)
[2019-03-10 11:18] VITALS: BP 123/67; PULSE 106
--- NOTE | 2019-03-10 14:17 | PN ---
PROGRESS NOTE PULMONARY/CRITICAL CARE PROGRESS NOTE: DATE OF SERVICE: 03/10/2019 This is a very pleasant 83-year-old female that we saw yesterday in consultation. We suspected pulmonary embolism based on her symptoms, her recent sedentary lifestyle following any surgery, elevated D-dimer test, shortness of breath, and palpitations. A CT angiogram was not initially done, only a ventilation-perfusion lung scan. I gave the Primary Service two options. One they could just treat her for 3 months with anticoagulants for suspected pulmonary embolism or once her renal function improved, being off the diuretics, they could do a CT angiogram. They chose the latter and the CT angiogram was apparently negative. Hence, all anticoagulants could be discontinued. She has a history of recent diagnosis of sleep apnea syndrome, currently on CPAP, no history of intrinsic pulmonary disease, no evidence of right lower extremity DVT, history of heart failure, hypertension, pneumonia, sciatica, restless legs syndrome, osteoporosis, and chronic back pain. The patient was delighted to know that she did not have a pulmonary embolism. Current vital signs reviewed. Temperature 97.5, heart rate 106, respiratory rate 18, blood pressure 123/67 mean 85, room air saturation 94%-95%. GENERAL: Appears in no acute distress. HEENT: Examination is grossly unremarkable. Mucous membranes are moist. No oral lesions. NECK: Supple. Full range of motion. No adenopathy or thyromegaly. Neck veins are flat. CARDIOVASCULAR: Examination reveals regular rhythm and rate. Heart rate about 100 beats per minute. S1, S2 normal. No S3, S4, or murmur. LUNGS: Relatively clear. Breath sounds equal. Maybe a few scattered mild rhonchi. No wheezes or crackles. ABDOMEN: Soft, bowel sounds are heard. EXTREMITIES: Intact. No edema. SKIN: Without rash. NEUROLOGIC: Examination is brief but nonfocal. LAB DATA: Reviewed. Sodium 139, potassium 3.7, chloride is 98, CO2 is 32, anion gap 9. BUN and creatinine were [address] angiogram showed no evident pulmonary embolism. Medications are reviewed. ASSESSMENT: 1. No evidence of pulmonary embolism on CT angiogram. 2. Recent diagnosis of severe sleep apnea syndrome, currently on CPAP. 3. No history of intrinsic pulmonary disease. 4. No evidence of deep venous thrombosis. 5. History of heart failure. 6. History of hypertension. 7. Prior history of pneumonia. 8. History of sciatic neuralgia. 9. History of restless legs syndrome. 10.Osteoporosis. 11.Chronic back pain. PLAN: Before today, we are going to treat the patient for the 3 months worth of blood thinners for provoked blood clot. This is based on clinical symptoms, palpitation, shortness of breath, chest discomfort, elevated D-dimer, and an indeterminate V/Q scan. Now that we have the CT angiogram, the anticoagulants can be discontinued. No additional recommendations are made. The patient will follow up with Dr. Moore for her sleep disorder. Diuretics have been cut back. The swelling is improved. We will continue to follow. Prognosis is guarded. MMODL / IJN: [id number] /
--- NOTE | 2019-03-10 18:23 | PN ---
PROGRESS NOTE Patient is seen for followup for acute kidney injury. Her renal function has improved. Creatinine is down to 0.9 from 2.49 on initial admission. Patient is status post IV fluids. PHYSICAL EXAMINATION: On examination today, blood pressure was 138/67, heart rate 69 per minute. She is afebrile. EXAMINATION OF THE HEART: S1 and S2. EXAMINATION OF LUNGS: Bilateral breath sounds are heard. ABDOMEN: Soft, non-tender. Examination of lower extremities shows no evidence of edema. LABS: Sodium 139, potassium 3.7. Chloride is 98, CO2 32, BUN 57, creatinine 0.9. ASSESSMENT: 1. Acute kidney injury, prerenal, currently improved status post IV fluids, mainly associated with hypotension and hypoperfusion. Cozaar dose was decreased yesterday. 2. Hypertension. May continue with the lower dose of Cozaar. 3. Atrial fibrillation with rapid ventricular response, currently with controlled ventricular response, maintained on Xarelto. 4. Restless legs syndrome, maintained on Requip. PLAN: Patient can be discharged from nephrology standpoint. Follow-up labs as outpatient. MMODL / IJN: [id number] /
--- NOTE | 2019-03-11 21:38 | P.DS ---
Providers Date of admission: 03/08/19 17:25 Expected date of discharge: 03/10/19 Attending physician: Lance Mitchell Consults: 03/08/19 17:24 Consult Physician Urgent Consulting Provider: Jorge Abrams Consult Reason/Comments: Pulmonary embolism Do you want consulting provider notified?: Yes Consult Physician Urgent Consulting Provider: Landy Arzate Consult Reason/Comments: Acute renal failure Do you want consulting provider notified?: Yes 03/09/19 22:13 Consult Physician Routine Consulting Provider: Mala Fisher Consult Reason/Comments: arrythmia Do you want consulting provider notified?: Yes Primary care physician: [facility] Hospital Course: Chief Complaint: Heart racing Hospital course: This is a very pleasant 83-year-old patient of Dr. Kun Muller. Chronic stable medical conditions include obesity, obesity hypoventilation syndrome, osteoarthritis of the spine, essential hypertension, restless leg syndrome, congestive heart failure from diastolic dysfunction, history of paroxysmal self- limiting supraventricular tachycardia. Patient is going to see Dr. [facility] to get her steroid injections spine. There are heart rate was noted to be rapid and she was sent out of the ER. It was initially felt to be atrial fibrillation. And felt to be sinus tachycardia. Patient had a similar presentation on March of this year. Found to be SVT. Patient also found to be in renal failure with a creatinine of 2.49. In March of this year creatinine was 0.85. Also patient seen her family doctor and patient has been on diuretics. Since patient has been taking some extra pills inadvertently.patient is given IV fluids. Renal function is normalized. Initial VQ scan that showed intermediate probability for PE. Computed tomography scan of the chest was negative for PE. Has anticoagulation was discontinued. patient's tachycardia was probably related to fluid deficit. Patient dosage of diuretic was reduced. Patient told to use Chip wraps. Today-care was discussed with the patient at length. Also was also discussed with Dr. Diez and decision was made to discontinue the anticoagulation. Patient feeling much better. Discussion and discharge planning more than 35 minutes Consultation: Dr. Diez from pulmonary Dr. VC Fisher from cardiology Physical examination: VITAL SIGNS:97.5, 69, 18, 138/67, 95% on room air GENERAL: laying in bed, comfortabled. EYES: Pupils equal. Conjunctiva normal. HEENT: External appearance of nose and ears normal, oral cavity grossly normal. NECK: JVD not raised; masses not palpable. HEART: First and second heart sounds are normal; no edema. LUNGS: Respiratory rate normal; clear to auscultation. ABDOMEN: Soft, nontender, liver spleen not palpable, no masses palpable. PSYCH: Alert and oriented x3; mood and affect normal. MUSCULAR skeletal: Evidence of OA especially in the hands INVESTIGATIONS, reviewed in the clinical context: creatinine 0.90 Previous testing White count 7.3 hemoglobin 13.7 potassium 3.4 bun 68 creatinine 2.49 Patient's creatinine in September of this year was 0.69 Chest x-ray film reports no acute EKG tracing personally seen by me shows possible sinus tachycardia but there may be underlying reentrant tachycardia Doppler ultrasound lower extremity-negative for DVT VQ scan-intermediate probability CTA-negative for PE Assessment: -sinus tachycardia likely from fluid deficit, POA -Pulmonary embolism ruled out -Severe sleep apnea syndrome on CPAP -Acute renal failure likely prerenal from recent aggressive use of diuretics, POA -Morbid obesity BMI 45.7 -Obesity hypoventilation syndrome -Primary or strength redness of the spine -Essential hypertension -Associated syndrome -Chronic congestive heart failure from diastolic dysfunction EF at 60% disposition: Home Patient Condition at Discharge: Stable Plan - Discharge Summary Discharge Rx Participant: Yes New Discharge Prescriptions: Continue Cholecalciferol [Vitamin D3 (25 Mcg = 1000 Iu)] 2,000 unit PO DAILY Carvedilol [Coreg] 3.125 mg PO BID L.acidoph,Paracasei, B.lactis [Probiotic] 1 cap PO DAILY Cyanocobalamin (Vitamin B-12) [Vitamin B-12] 1,000 mcg PO DAILY Multivitamins, Thera [Multivitamin (formulary)] 2 tab PO DAILY Potassium Chloride ER [K-Dur 20] 20 meq PO HS guaiFENesin [Mucinex] 600 mg PO Q12H Vitamin C/Biotin [Hair, Skin and Nails] 1 tab PO DAILY Irbesartan [Avapro] 150 mg PO DAILY amLODIPine BESYLATE 5 mg PO DAILY rOPINIRole HCL [Requip] 1 tab PO TID BETWEEN MEALS Changed Furosemide [Lasix] 40 mg PO MOWEFR #0 Discontinued Antidiarrhea 1 tab PO DAILY Metolazone [Zaroxolyn] 2.5 mg PO BID Discharge Medication List Cholecalciferol [Vitamin D3 (25 Mcg = 1000 Iu)] 2,000 unit PO DAILY 12/10/17 [History] Carvedilol [Coreg] 3.125 mg PO BID 11/03/18 [History] Cyanocobalamin (Vitamin B-12) [Vitamin B-12] 1,000 mcg PO DAILY 11/03/18 [History] L.acidoph,Paracasei, B.lactis [Probiotic] 1 cap PO DAILY 11/03/18 [History] Multivitamins, Thera [Multivitamin (formulary)] 2 tab PO DAILY 01/31/19 [History] Irbesartan [Avapro] 150 mg PO DAILY 03/08/19 [History] Potassium Chloride ER [K-Dur 20] 20 meq PO HS 03/08/19 [History] Vitamin C/Biotin [Hair, Skin and Nails] 1 tab PO DAILY 03/08/19 [History] amLODIPine BESYLATE 5 mg PO DAILY 03/08/19 [History] guaiFENesin [Mucinex] 600 mg PO Q12H 03/08/19 [History] Furosemide [Lasix] 40 mg PO MOWEFR #0 03/10/19 [Rx] rOPINIRole HCL [Requip] 1 tab PO TID BETWEEN MEALS 03/10/19 [History] Follow up Appointment(s)/Referral(s): German Self MD [STAFF PHYSICIAN] - 04/04/19 3:15 pm Kun Alfred MD [Primary Care Provider] - 03/15/19 1:30 pm Marquita Moore MD [STAFF PHYSICIAN] - 03/11/19 1:30 pm Patient Instructions/Handouts: Acute Kidney Injury (DC), Tachycardia (ED) Activity/Diet/Wound Care/Special Instructions: send home with Chip wraps below-knee lower extremity Discharge Disposition: HOME SELF-CARE
== END 2019-03-10 14:25 | disposition home or self-care (01) | DRG 309 ==
LOC: EC 13:01 → 3SCARD 17:25
PROVIDERS: ADMIT Hospitalist; ATTEND Hospitalist
DX: R00.0 Tachycardia, unspecified (principal); N17.9 Acute kidney failure, unspecified; I50.32 Chronic diastolic (congestive) heart failure; E66.2 Morbid (severe) obesity with alveolar hypoventilation; Z68.42 Body mass index [BMI] 45.0-49.9, adult; T50.2X5A Adverse effect of carbonic-anhydrase inhibitors, benzothiadiazides and other diuretics, initial encounter; G89.29 Other chronic pain; I11.0 Hypertensive heart disease with heart failure; I25.10 Atherosclerotic heart disease of native coronary artery without angina pectoris; I48.91 Unspecified atrial fibrillation; J44.9 Chronic obstructive pulmonary disease, unspecified; M47.9 Spondylosis, unspecified; M54.30 Sciatica, unspecified side; M81.0 Age-related osteoporosis without current pathological fracture; F40.240 Claustrophobia; G25.81 Restless legs syndrome; Z79.899 Other long term (current) drug therapy; Z80.9 Family history of malignant neoplasm, unspecified; Z82.49 Family history of ischemic heart disease and other diseases of the circulatory system; Z83.3 Family history of diabetes mellitus; Z87.01 Personal history of pneumonia (recurrent); Z90.49 Acquired absence of other specified parts of digestive tract; Z96.651 Presence of right artificial knee joint; Z88.8 Allergy status to other drugs, medicaments and biological substances; Z60.2 Problems related to living alone; Z83.2 Family history of diseases of the blood and blood-forming organs and certain disorders involving the immune mechanism; Z98.49 Cataract extraction status, unspecified eye; I95.9 Hypotension, unspecified; R79.1 Abnormal coagulation profile; Z72.3 Lack of physical exercise
CPT/HCPCS: 36415; 71046; 71275; 78582; 80048; 80053; 81001; 83735; 84484; 85025; 85379; 85610; 85730; 93005; 96361; 96365; 96366; 96376; 99285

== ENCOUNTER 2019-12-05 18:26 | Emergency (ER) | payer MEDICARE, OTHER ==
[2019-12-05 18:31] VITALS: RESP 18
--- NOTE | 2019-12-05 19:00 | ED ---
Extremity Problem HPI - General Chief complaint: Extremity Problem,Nontraumatic Stated complaint: Pain in R shoulder Source: patient Mode of arrival: ambulatory Limitations: no limitations - History of Present Illness Initial comments: This is an 84-year-old male presenting to emergency Department with chief complaint of right shoulder pain. Patient reports the pain has been ongoing for the past several days and is intermittent in nature. Patient reports the pain appears to be sharp whenever she has visited was with her right upper extremity. She states most of her pain is located in the right scapular region. Patient reports she sees a chiropractor and he has her "hooked on stretching machines". She thinks this is related to that. Patient denies any chest pain or shortness of breath. Patient reports she said a tingling sensation in her hand for the last few days that also comes and goes. She denies any weakness in her right upper extremity. Denies any night sweats or chills. Denies any chest pain shortness of breath one-sided weakness or paresthesias, headaches visual changes. - Related Data Home Medications Medication Instructions Recorded Confirmed Cholecalciferol [Vitamin D3 (25 2,000 unit PO DAILY 12/10/17 03/08/19 Mcg = 1000 Iu)] Cyanocobalamin (Vitamin B-12) 1,000 mcg PO DAILY 11/03/18 03/08/19 [Vitamin B-12] L.acidoph,Paracasei, B.lactis 1 cap PO DAILY 11/03/18 03/08/19 [Probiotic] carvediloL [Coreg] 3.125 mg PO BID 11/03/18 03/08/19 Multivitamins, Thera [Multivitamin 2 tab PO DAILY 01/31/19 03/08/19 (formulary)] Irbesartan [Avapro] 150 mg PO DAILY 03/08/19 03/08/19 Potassium Chloride ER [K-Dur 20] 20 meq PO HS 03/08/19 03/08/19 Vitamin C/Biotin [Hair, Skin and 1 tab PO DAILY 03/08/19 03/08/19 Nails] amLODIPine BESYLATE 5 mg PO DAILY 03/08/19 03/08/19 guaiFENesin [Mucinex] 600 mg PO Q12H 03/08/19 03/08/19 rOPINIRole HCL [Requip] 1 tab PO TID BETWEEN MEALS 03/10/19 03/10/19 Previous Rx's Medication Instructions Recorded Furosemide [Lasix] 40 mg PO MOWEFR #0 03/10/19 Allergies Allergy/AdvReac Type Severity Reaction Status Date / Time lorazepam [From Ativan] AdvReac Unknown Verified 03/08/19 14:17 Review of Systems ROS Statement: Those systems with pertinent positive or pertinent negative responses have been documented in the HPI. ROS Other: All systems not noted in ROS Statement are negative. Past Medical History Past Medical History: Heart Failure, COPD, Hypertension, Pneumonia Additional Past Medical History / Comment(s): Previous history of pneumonia back in 2014 requiring a brief hospitalization, sciatica, RLS, hypertension. OSTEOPOROSIS. History of Any Multi-Drug Resistant Organisms: None Reported Past Surgical History: Cholecystectomy, Hernia Repair, Joint Replacement Additional Past Surgical History / Comment(s): cataract sx, surgury on veins angelica legs, epidural injections in back, meniscis repair right knee in 01/2019 Past Anesthesia/Blood Transfusion Reactions: No Reported Reaction, Motion Sickness Additional Past Anesthesia/Blood Transfusion Reaction / Comment(s): motion sickness on boats. clausterphobia Past Psychological History: No Psychological Hx Reported Past Alcohol Use History: None Reported Past Drug Use History: None Reported - Past Family History Sister(s) Family Medical History: Cancer Mother Family Medical History: Congestive Heart Failure (CHF), Diabetes Mellitus, Deep Vein Thrombosis (DVT), Hypertension Father Family Medical History: Congestive Heart Failure (CHF) General Exam Limitations: no limitations General appearance: alert, in no apparent distress, obese Head exam: Present: atraumatic, normocephalic, normal inspection Eye exam: Present: normal appearance, PERRL, EOMI Pupils: Present: normal accommodation ENT exam: Present: normal exam, normal oropharynx, mucous membranes moist, TM's normal bilaterally, normal external ear exam Neck exam: Present: normal inspection, full ROM. Absent: tenderness Respiratory exam: Present: normal lung sounds bilaterally. Absent: respiratory distress, wheezes, rales Cardiovascular Exam: Present: regular rate, normal rhythm, normal heart sounds GI/Abdominal exam: Present: soft. Absent: distended, tenderness, guarding Extremities exam: Present: normal inspection, tenderness (Focal tenderness in the superior scapular region. Patient appears to have muscular strain region. There is no signs of overlying cellulitic skin changes that would indicate an infection.), normal capillary refill, other (+2 ulnar and radial pulses bilateral. Sensation intact in bilateral upper extremities. Outsole Molder strength equal and bilateral. Strength 5/5 in biceps and triceps and bilateral upper extremity.). Absent: full ROM (Limited range of motion with abduction or extension of the right shoulder.) Back exam: Present: normal inspection, full ROM. Absent: tenderness, CVA tenderness (R) Neurological exam: Present: alert, oriented X3, CN II-XII intact, normal gait Psychiatric exam: Present: normal affect, normal mood Skin exam: Present: warm, dry, intact, normal color Course Vital Signs 12/05/19 12/05/19 18:28 20:58 Temperature 99.2 F 97.5 F L Pulse Rate 72 73 Respiratory 18 18 Rate Blood Pressure 110/68 163/60 O2 Sat by Pulse 94 L 96 Oximetry Medical Decision Making - Medical Decision Making Patient is a 4-year-old female presenting to the emergency department with a chief complaint of right shoulder pain. On initial evaluation, patient does appear to have very localized tenderness in the superior scapular region of the right upper extremity. No overlying cellulitic skin changes that would indicate infection at this time. I do suspect this is muscular strain. X-rays unremarkable. EKG revealed first-degree heart block. She denies any chest pain or shortness of breath. Again, suspect this is muscular strain that is causing the patient is comfortable. I applied ice in the region of tenderness. On r eevaluation, patient reports significant improvement in symptoms without any analgesics. There is no midline vertebral tenderness Advised the patient to follow with an orthopedic rn. Strict return parameters were thoroughly discussed with patient was stating agreeable. Case discussed with physician. - EKG Data EKG Comments: First-degree AV block. Maternal rate 74, DE 224, QRS 86, QTC 419. Disposition Clinical Impression: Musculoskeletal strain Disposition: HOME SELF-CARE Condition: Stable Instructions (If sedation given, give patient instructions): Shoulder Sprain (ED) Additional Instructions: Follow-up with orthopedic rn. Return to emergency department if symptoms worsen. Is patient prescribed a controlled substance at d/c from ED?: No Referrals: Kun Alfred MD [Primary Care Provider] - 1-2 days Damian Carr DO [Doctor of Osteopathic Medicine] - 1-2 days Time of Disposition: 20:34
--- NOTE | 2019-12-05 19:37 | XR ---
EXAMINATION TYPE: XR shoulder complete RT DATE OF EXAM: 12/05/2019 COMPARISON: NONE HISTORY: 84-year-old female with right shoulder pain TECHNIQUE: 3 views FINDINGS: Mild degenerative change at the AC joint with marginal spurring and capsular hypertrophy. Subacromial space is preserved. Mild degenerative spurring at the glenohumeral joint. No acute fracture, subluxa tion, or dislocation seen. IMPRESSION: Mild AC and glenohumeral joint OA. No acute osseous abnormality seen.
[2019-12-05 20:59] VITALS: BP 163/60; PULSE 73; TEMP 97.5
== END 2019-12-05 20:58 | disposition home or self-care (01) ==
LOC: EC 18:26
DX: S46.911A Strain of unspecified muscle, fascia and tendon at shoulder and upper arm level, right arm, initial encounter (principal); I11.0 Hypertensive heart disease with heart failure; I50.9 Heart failure, unspecified; G25.81 Restless legs syndrome; Z79.899 Other long term (current) drug therapy; Z98.49 Cataract extraction status, unspecified eye; X50.1XXA Overexertion from prolonged static or awkward postures, initial encounter
CPT/HCPCS: 93005; 99283

== ENCOUNTER → 2020-02-14 | Outpatient (CLI) | payer MEDICARE, OTHER ==
[~2020-02-14] MED LIST changes: +DENOSUMAB 60 MG/ML 1 ML SYRINGE SQ NR; +DENOSUMAB 60 MG/ML 1 ML SYRINGE SQ ONE; -HYDROmorphone 0.5 MG/0.5 ML SYRINGE IVP PRN; -LACTATED RINGERS 1,000 ML IV SCH; -LIDOCAINE 1% 20 ML VIAL (10MG/ML) FOR IV START INTRADERMA PRN; -ONDANSETRON 4 MG/2 ML VIAL IVP ONE
[2020-02-14 14:02] VITALS: BP 153/73; PULSE 80; RESP 16; TEMP 98.2
== END | disposition home or self-care (01) ==
LOC: PROCWHC3 13:35
PROVIDERS: ATTEND Internal Medicine
DX: M81.0 Age-related osteoporosis without current pathological fracture (principal)
CPT/HCPCS: 96372; J0897

== ENCOUNTER → 2020-06-22 | Outpatient (CLI) | payer MEDICARE, OTHER ==
--- NOTE | 2020-06-22 13:51 | MR ---
EXAMINATION TYPE: MR lumbar spine wo/w con DATE OF EXAM: 06/22/2020 COMPARISON: CT lumbar spine 03/01/2014 HISTORY: Low back pain, Hx of surgery TECHNIQUE: Multiplanar, multisequence images of the lumbar spine were acquired utilizing 11 mL intravenous Gadav ist gadolinium contrast. T12-L1: Posterior broad-based disc bulge causes mild anterior mass effect on the thecal sac. There is some facet arthropathy change with hypertrophy ligamentum flavum causes posterior lateral mass effec t on the thecal sac. No significant spinal stenosis. L1-L2: Circumferential posterior broad-based disc bulge causes anterior mass effect on the thecal sac . There is facet arthropathy change present. Circumferential extension endplate disc complex results in foraminal encroachment greater on the left than on the right. L2-L3: Posterior extension endplate disc complex extends circumferentially to cause some foraminal en croachment bilaterally, there is anterior mass effect on the thecal sac, mild to moderate central tania nosis. Facet arthropathy changes are present. L3-L4: Circumferential extension endplate disc complex laterally causes bilateral foraminal encroachm ent, there is mild anterior mass effect on the thecal sac due to posterior broad-based extension endp late disc complex. There is anterolateral mass effect on the thecal sac from the right causing deform ity, axial image 15, subarticular lateral recess stenosis as described in previous CT report. Mild an terolisthesis grade 1 L3-4 also noted. L4-L5: Circumferential extension endplate disc complex encroaches upon the inferior margins of the fo ramina, posterior disc bulge causes slight anterior mass effect on the thecal sac, no significant spi nal stenosis. Facet arthropathy with hypertrophy ligamentum flavum causes posterior lateral mass effe ct on the thecal sac. L5-S1: There is facet arthropathy change. No significant spinal stenosis. Circumferential extension e ndplate disc complex results in bilateral foraminal encroachment. Posterior extension endplate disc c omplex contacts anterior thecal sac. Lumbar segments are intact. No paraspinal masses are identified. Conus medullaris has a normal appe arance. There is a spinal curvature. Multilevel spondylosis is present with discogenic marrow signal changes, there is loss of disc height signal at intervertebral levels, multilevel vacuum disc phenome non as on CT. Lumbar vertebral bodies show preserved height. No abnormal enhancement on contrast admi nistration. There is a cortical cyst present posteriorly involving the left kidney measuring approxim ately 3.4 cm. IMPRESSION: Generative disc disease, facet arthropathy, foraminal encroachment as described, spinal stenosis grea test at L2-3. There is a spinal curvature present. Lateral recess encroachment at L3-4 has been descr ibed in prior report, there is local mass effect.
== END | disposition home or self-care (01) ==
LOC: RADMRIMAIN 09:26
PROVIDERS: ATTEND Internal Medicine
DX: M48.061 Spinal stenosis, lumbar region without neurogenic claudication (principal); M47.816 Spondylosis without myelopathy or radiculopathy, lumbar region
CPT/HCPCS: 72158; A9585

== ENCOUNTER → 2020-07-04 | Outpatient (CLI) | payer MEDICARE, OTHER ==
--- NOTE | 2020-07-05 07:06 | US ---
EXAMINATION TYPE: US thyroid st tissue head/neck DATE OF EXAM: 07/04/2020 COMPARISON: 01/08/2017 CLINICAL HISTORY: E04.1Thyroid Nodule. GLAND SIZE: Right Lobe: 4.3 x 2.9 x 3.6 cm Overall Parenchyma: heterogenous Left Lobe: 3.4 x 1.7 x 1.6 cm Overall Parenchyma: heterogeneous Isthmus Thickness: 0.4 cm NODULES RIGHT: # of nodules measured on right: 1 1. 3.8 X 2.7 x 2.7 cm, mid, cystic or almost completely cystic, anechoic nodule, which is wider than tall, with smooth margins, without echogenic foci. Prior size: 2.3 X 3.0 x 3.3cm LEFT: # of nodules measured on left: 1 1. 0.5 X 0.5 x 0.6 cm, upper mid, cystic or almost completely cystic, anechoic nodule, which is wide r than tall, with smooth margins, without echogenic foci. ISTHMUS: # of nodules measured in the isthmus: 0 Bilateral neck scanned, no evidence of lymphadenopathy. IMPRESSION: Nonspecific thyroid lesions.
== END ==
LOC: RADUSWWP 16:23
PROVIDERS: ATTEND Internal Medicine
DX: E04.1 Nontoxic single thyroid nodule (principal)
CPT/HCPCS: 76536

== ENCOUNTER → 2021-04-15 | Outpatient (CLI) | payer MEDICARE, OTHER ==
[~2021-04-15] MED LIST changes: -DENOSUMAB 60 MG/ML 1 ML SYRINGE SQ ONE
[2021-04-15 11:54] VITALS: BP 137/76; PULSE 84; RESP 16; TEMP 98.3
== END ==
LOC: PROCWHC3 11:40
PROVIDERS: ATTEND Family Medicine
DX: M81.0 Age-related osteoporosis without current pathological fracture (principal); Z88.8 Allergy status to other drugs, medicaments and biological substances
CPT/HCPCS: 96372; J0897

== ENCOUNTER 2021-09-03 09:32 | Day surgery (SDC) | payer MEDICARE, OTHER ==
[2021-08-30 16:15] VITALS: BMI 48.8
[~2021-09-03 09:32] MED LIST changes: -DENOSUMAB 60 MG/ML 1 ML SYRINGE SQ NR; +LACTATED RINGERS 1,000 ML IV SCH; +LIDOCAINE 1% (10MG/ML) FOR IV START INTRADERMA PRN
[2021-09-03 10:47] VITALS: TEMP 98
[2021-09-03] MEDS ORDERED: PROPOFOL 10 MG/ML 20 ML VIAL IV ONE (11:21)
--- NOTE | 2021-09-03 11:29 | P.PCN ---
Date of Procedure: 09/03/21 Procedure(s) Performed: BRIEF HISTORY: Patient is a 86-year-old, pleasant, white female scheduled for an upper endoscopy as a part of evaluation of intermittent dysphagia to solids for the last 6 months duration.. PROCEDURE PERFORMED: Esophagogastroduodenoscopy with dilation. PREOPERATIVE DIAGNOSIS: Intermittent dysphagia to solids of 6 months duration. IV sedation per anesthesia. PROCEDURE: After informed consent was obtained, the patient was brought into the endoscopy unit. IV sedation was administered by Anesthesia under continuous monitoring. Initially the Olympus GIF-140 video endoscope was inserted into the mouth. Esophagus intubated without any difficulty. It was gradually advanced in to the stomach and duodenum and carefully examined. The bulb and the second part of the duodenum appeared normal. The scope at this time was withdrawn to the stomach, adequately insufflated with air, and upon careful examination, mucosa of the antrum, body, cardia and the fundus appeared normal. The scope was then withdrawn into the esophagus. The GE junction was located at 36 cm from the incisors. There was a distal esophageal stricture identified and this was dilated using 15-18 mm TTS balloon in a sequential fashion for 60 seconds. There was circumferential erythema the GE junction consistent with LA grade a reflux esophagitis. The rest of the esophagus appeared normal. There were no erosions or ulcerations seen and the patient tolerated the procedure well. IMPRESSION: 1. Distal esophageal stricture status post balloon dilation using 15-18 mm TTS balloon as described above. 2. Circumferential erythema the GE junction consistent with LA grade a reflux esophagitis. RECOMMENDATIONS: The findings of this examination were discussed with the patient as well as her family. She was advised to be on a clear liquid diet for lunch today. Start on omeprazole 20 mg daily for reflux and follow antireflux measures..
[2021-09-03 11:42] VITALS: RESP 16
[2021-09-03 11:48] VITALS: BP 115/71; PULSE 65
== END 2021-09-03 12:17 | disposition home or self-care (01) ==
LOC: ORWHC2ENDO 09:32
PROVIDERS: ATTEND Internal Medicine Gastroenterology
DX: K21.9 Gastro-esophageal reflux disease without esophagitis (principal)
CPT/HCPCS: 43249; J2704; C1726

== ENCOUNTER → 2021-11-29 | Outpatient (CLI) | payer MEDICARE, OTHER ==
[~2021-11-29] MED LIST changes: +DENOSUMAB 60 MG/ML 1 ML SYRINGE SQ NR; -LACTATED RINGERS 1,000 ML IV SCH; -LIDOCAINE 1% (10MG/ML) FOR IV START INTRADERMA PRN
[2021-11-29 09:27] VITALS: BP 131/75; PULSE 79; RESP 16; TEMP 98.2
== END ==
LOC: PROCWHC3 09:01
PROVIDERS: ATTEND Family Medicine
DX: M81.0 Age-related osteoporosis without current pathological fracture (principal); Z91.048 Other nonmedicinal substance allergy status; Z88.8 Allergy status to other drugs, medicaments and biological substances
CPT/HCPCS: 96372; J0897

== ENCOUNTER → 2022-11-19 | Outpatient (CLI) | payer MEDICARE, OTHER ==
--- NOTE | 2022-11-19 20:37 | FL ---
EXAMINATION TYPE: FL barium swallow DATE OF EXAM: 11/19/2022 COMPARISON: None HISTORY: Prior esophageal dilatation, difficulty swallowing TECHNIQUE: A double air contrast esophagram study is performed. FINDINGS: Multiple tertiary contractions present throughout the examination. Esophagus dialysis normal caliber and has normal contour. No intraluminal or extrarenal defects are evident. No focal stenosis is evide nt. No significant hesitancy passing through the gastroesophageal junction. IMPRESSIONS: 1. Presbyesophagus. No focal stenosis evident.
== END | disposition home or self-care (01) ==
LOC: RADUSWWP 10:58
PROVIDERS: ATTEND Internal Medicine Gastroenterology
DX: K22.89 Other specified disease of esophagus (principal); R13.10 Dysphagia, unspecified
CPT/HCPCS: 74220